=== PATIENT | female | born 1945 | race Caucasian/White ===

== ENCOUNTER 2019-09-29 10:06 | Outpatient (CLI) | payer MEDICARE, SELFPAY ==
[2019-09-29 10:52] LABS: Alanine Aminotransferase 20 U/L (4-35); Albumin Level 4.5 g/dL (3.5-5.1); Alkaline Phosphatase 59 U/L (38-126); Anion Gap 13.1 mmol/L (7-16); Aspartate Amino Transferase 27 U/L (14-36); Bilirubin,Total 0.6 mg/dL (0.2-1.3); Blood Urea Nitrogen 15 mg/dL (7-17); Calcium 9.4 mg/dL (8.4-10.2); Carbon Dioxide 25 mmol/L (22-30); Chloride 102 mmol/L (98-107); Cholesterol 250 mg/dL (0-200); Estimated Glomerular Filt Rate > 60; Glucose 98 mg/dL (65-105); HDL Direct 89 mg/dL; Potassium 4.1 mmol/L (3.4-5.0); Sodium 136 mmol/L (137-145); Triglycerides 72 mg/dL (<150)
[2019-09-29 11:03] LABS: LDL Cholesterol Direct 120 mg/dL
== END 2019-09-29 10:07 | disposition home or self-care (01) ==
PROVIDERS: PCP Nurse Practitioner Family; Visit Provider Nurse Practitioner Family
DX: E78.5 Hyperlipidemia, unspecified (principal); I10 Essential (primary) hypertension
CPT/HCPCS: 36415; 80053; 80061

== ENCOUNTER 2021-06-09 01:16 | Day surgery (SDC) | payer MEDICARE, SELFPAY ==
[2021-06-09] VITALS (9 sets, daily range): BP systolic 128–167; BP diastolic 64–86; PULSE 51–86; RESP 14–17; TEMP 36.3; O2SAT 99–100; BMI 20.7
[2021-06-09 08:51] LABS: Basophils Absolute Auto 0.1 K/mm3 (0.0-0.1); Basophils Percent Auto 1.4 % (0.2-1.2); Eosinophils Absolute Auto 0.2 K/mm3 (0-0.3); Eosinophils Percent Auto 3.6 % (0-4.4); Hematocrit 41.1 % (37.0-47.0); Hemoglobin 13.5 g/dL (12.0-15.0); Lymphocytes Absolute Auto 1.42 K/mm3 (0.9-3.2); Lymphocytes Percent Auto 32.3 % (18.3-44.2); Mean Corpuscular HGB Conc 32.8 g/dl (32-36); Mean Corpuscular Hemoglobin 32.4 pg (26-34); Mean Corpuscular Volume 98.6 fl (80-100); Mean Platelet Volume 9.5 fl (7.4-10.4); Monocytes Absolute Auto 0.4 K/mm3 (0.1-0.6); Monocytes Percent Auto 8.4 % (2.6-8.5); Neutrophils Absolute Auto 2.4 K/mm3 (1.3-6.7); Neutrophils Percent Auto 54.3 % (45.5-73.1); Platelet Count Result 347 k/mm3 (150-375); Red Blood Count 4.17 M/mm3 (4.2-5.4); Red Cell Distribution Width 13.2 % (11.5-14.5); White Blood Count 4.4 K/mm3 (4.5-10.0)
[2021-06-09 09:01] LABS: Anion Gap 6 mmol/L (8-16); Blood Urea Nitrogen 14 mg/dL (7-17); Calcium 9.1 mg/dL (8.4-10.2); Carbon Dioxide 27 mmol/L (22-30); Chloride 105 mmol/L (98-107); Estimated CRCL calculation 70 ml/min; Estimated Glomerular Filt Rate > 60; Glucose 85 mg/dL (65-110); Potassium 3.4 mmol/L (3.4-5.0); Sodium 138 mmol/L (137-145)
--- NOTE | 2021-06-09 11:42 | PM.IMHP ---
H&P: HPI History of Present Illness Date/Time: 06/09/21 11:42 Chief Complaint: Abnormal echocardiogram Narrative: This 75-year-old patient with past medical history of parathyroidectomy, hypertension, hyperlipidemia and anxiety who was seen in my office for abnormal EKG. She had COVID infection March 2021. She has intermittent palpitations for about 1 year on daily basis. She admits to pain in the right side of the neck worse on moving her neck. She walks about 2 miles a day but she feels after that XT me drained and tired. Denies shortness of breath,. Her EKG shows nonspecific ST changes and nonspecific interventricular conduction delay and for that reason and given the fact that she was tired she underwent echocardiogram and ejection fraction reported visually to be 40% and measured at 49%. Due to symptoms and due to low ejection fraction we decided to bring her here for cardiac catheterization to rule out significant CAD Review of Systems Review of Systems: All systems reviewed & are unremarkable except as noted in HPI and below Constitutional: Constitutional: Denies chills, Reports fatigue, Denies fever(s), Denies headache(s), Reports lethargy, Denies snoring and Reports other (Palpitations) Eyes: Eyes: Denies eye discharge and Denies loss of vision ENT: Denies dizziness, Denies headache(s), Denies nasal discharge and Denies sore throat Cardiovascular: Cardiovascular: Reports as per HPI, Denies chest pain, Denies syncope, Denies rapid heart rate, Denies leg edema, Denies dyspnea, Denies dyspnea on exertion, Denies orthopnea and Denies paroxysmal nocturnal dyspnea Respiratory: Respiratory: Denies chest congestion, Denies cough, Denies dyspnea, Denies dyspnea on exertion, Denies snoring and Denies wheezing Gastrointestinal: Gastrointestinal: Denies abdominal pain, Denies diarrhea, Denies nausea and Denies vomiting Genitourinary: Genitourinary: Denies hematuria, Denies urinary frequency, Denies dysuria and Denies flank pain Musculoskeletal: Musculoskeletal: Denies myalgias, Denies arthralgias and Denies joint swelling Neurologic: Denies Abnormal speech present, Denies dizziness, Denies syncope, Denies headache(s), Denies focal weakness and Denies loss of vision Psychiatric: Psychiatric: Denies anxiety and Denies depression Endocrine: Endocrine: Denies cold intolerance, Denies fatigue and Denies heat intolerance Hematologic/Lymphatic: Hematologic/Lymphatic: Denies easy bleeding and Denies easy bruising Allergic/Immunologic: Allergic/Immunologic: Denies urticaria and Denies wheezing PMFSH Past Medical History Medical History Anxiety Colonoscopy refused Essential (primary) hypertension History of shingles Hyperlipidemia Insomnia Osteopenia Surgical History Surgical History History of parathyroidectomy (~01/2013) hx of hyperparathyroid Family History Family History Mother Hypertension Father Family history of heart disease in male family member before age 55 Social History Social History Social History: Lives with . Has 2 children and 4 grandchildren. 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
--- NOTE | 2021-06-09 11:44 | WPDMODSED ---
Moderate Sedation Note-Pt Data Patient Data Allergies Allergy/AdvReac Type Severity Reaction Status Date / Time lisinopril Allergy Mild angioedema Verified 06/09/21 08:41 alendronate sodium Allergy Unknown severe Verified 06/09/21 08:41 body aches lovastatin Allergy Unknown Confusion Verified 06/09/21 08:41 Home Medications Medication Instructions Recorded Confirmed Type aspirin [Adult Low Dose Aspirin] 81 mg PO DAILY 06/08/21 06/08/21 History Current Medications: Active Medications Sodium Chloride (Normal Saline Iv) 500 mls @ 100 mls/hr IV CONT .Q5H TEO Sedation/Anesthesia: No previous sedation/anesthesia problems (including family history). [facility] Past Medical History Medical History Anxiety Colonoscopy refused Essential (primary) hypertension History of shingles Hyperlipidemia Insomnia Osteopenia Surgical History Surgical History History of parathyroidectomy (~01/2013) hx of hyperparathyroid Family History Family History Mother Hypertension Father Family history of heart disease in male family member before age 55 Social History Social History Social History: Lives with . Has 2 children and 4 grandchildren. 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 Gender identity (if verbalized by the patient): Female Sexual Orientation (if Verbalized by the Patient): Straight or Heterosexual Agree to blood products: Yes Mod Sed Physical Exam Physical Exam Pre Procedural Exam: Normal: Appearance, Eyes, Ears, Nose, Neck, Throat, Airway, Lungs, Heart Size, Heart Rate, Heart Rhythm, Neuro Exam, Abdomen, Liver, Kidneys, Spleen, Breasts, Genitalia, Extremities and Skin Hours since solid foods: 8 Hours since liquid intake: 8 Mallampati Classification: class 1 Internal Medicine - PN: Obj Da Vital Signs Vital Signs: Vital Signs - 24 hr 06/09/21 08:47 06/09/21 11:29 Temperature 36.3 C L Pulse Rate 82 Pulse Rate [Bilateral Pedal (Dorsalis Pedis) Palpation] 51 L Respiratory Rate 16 Blood Pressure 167/86 H Pulse Oximetry 99 Meds/Results Medications: Active Medications Generic Name Dose Route Start Last Admin Trade Name Mary PRN Reason Stop Dose Admin Sodium Chloride 500 mls @ 100 mls/hr 06/09/21 08:30 Normal Saline Iv IV CONT .Q5H TEO Labs CBC & Chem 7: 06/09/21 08:47 06/09/21 08:46 Labs: Laboratory Results - last 24 hr 06/09/21 06/09/21 08:46 08:47 WBC 4.4 L RBC 4.17 L Hgb 13.5 Hct 41.1 MCV 98.6 MCH 32.4 MCHC 32.8 RDW 13.2 Plt Count 347 MPV 9.5 Immature Gran % (Auto) 0.0 Neut % (Auto) 54.3 Lymph % (Auto) 32.3 [place] % (Auto) 8.4 Eos % (Auto) 3.6 Baso % (Auto) 1.4 H Lymph # (Auto) 1.42 [place] # (Auto) 0.4 Eos # (Auto) 0.2 Baso # (Auto) 0.1 Abs Immat Gran (auto) 0.00 Absolute Neuts (auto) 2.4 Absolute Nucleated RBC 0.0 Nucleated RBC % 0.0 Sodium 138 Potassium 3.4 Chloride 105 Carbon Dioxide 27 Anion Gap 6 L BUN 14 Creatinine 0.60 L Estim Creat Clear Calc 70 Estimated GFR > 60 Glucose 85 Calcium 9.1 ASA Classification/Sedation ASA Classification/Sedation ASA Class: I Emergent: No Risks: Risks, benefits and alternatives explained and patient/family accepted plan for sedation. Patient re-evaluated immediately prior to sedation.
--- NOTE | 2021-06-09 11:52 | WPDMODSED ---
Moderate Sedation Note-Pt Data Patient Data Allergies Allergy/AdvReac Type Severity Reaction Status Date / Time lisinopril Allergy Mild angioedema Verified 06/09/21 08:41 alendronate sodium Allergy Unknown severe Verified 06/09/21 08:41 body aches lovastatin Allergy Unknown Confusion Verified 06/09/21 08:41 Home Medications Medication Instructions Recorded Confirmed Type aspirin [Adult Low Dose Aspirin] 81 mg PO DAILY 06/08/21 06/08/21 History Current Medications: Active Medications Sodium Chloride (Normal Saline Iv) 500 mls @ 100 mls/hr IV CONT .Q5H TEO Sedation/Anesthesia: No previous sedation/anesthesia problems (including family history). [facility] Past Medical History Medical History Anxiety Colonoscopy refused Essential (primary) hypertension History of shingles Hyperlipidemia Insomnia Osteopenia Surgical History Surgical History History of parathyroidectomy (~01/2013) hx of hyperparathyroid Family History Family History Mother Hypertension Father Family history of heart disease in male family member before age 55 Social History Social History Social History: Lives with . Has 2 children and 4 grandchildren. 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 Gender identity (if verbalized by the patient): Female Sexual Orientation (if Verbalized by the Patient): Straight or Heterosexual Agree to blood products: Yes Mod Sed Physical Exam Physical Exam Pre Procedural Exam: Normal: Appearance, Eyes, Ears, Nose, Neck, Throat, Airway, Lungs, Heart Size, Heart Rate, Heart Rhythm, Neuro Exam, Abdomen, Liver, Kidneys, Spleen, Breasts, Genitalia, Extremities and Skin Hours since solid foods: 8 Hours since liquid intake: 8 Mallampati Classification: class 1 Internal Medicine - PN: Obj Da Vital Signs Vital Signs: Vital Signs - 24 hr 06/09/21 08:47 06/09/21 11:29 06/09/21 11:40 Temperature 36.3 C L Pulse Rate 82 51 L Pulse Rate [Bilateral Pedal (Dorsalis Pedis) Palpation] 51 L 57 L Respiratory Rate 16 16 Blood Pressure 167/86 H 157/73 H Pulse Oximetry 99 100 Meds/Results Medications: Active Medications Generic Name Dose Route Start Last Admin Trade Name Mauriq PRN Reason Stop Dose Admin Sodium Chloride 500 mls @ 100 mls/hr 06/09/21 08:30 Normal Saline Iv IV CONT .Q5H TEO Labs CBC & Chem 7: 06/09/21 08:47 06/09/21 08:46 Labs: Laboratory Results - last 24 hr 06/09/21 06/09/21 08:46 08:47 WBC 4.4 L RBC 4.17 L Hgb 13.5 Hct 41.1 MCV 98.6 MCH 32.4 MCHC 32.8 RDW 13.2 Plt Count 347 MPV 9.5 Immature Gran % (Auto) 0.0 Neut % (Auto) 54.3 Lymph % (Auto) 32.3 [place] % (Auto) 8.4 Eos % (Auto) 3.6 Baso % (Auto) 1.4 H Lymph # (Auto) 1.42 [place] # (Auto) 0.4 Eos # (Auto) 0.2 Baso # (Auto) 0.1 Abs Immat Gran (auto) 0.00 Absolute Neuts (auto) 2.4 Absolute Nucleated RBC 0.0 Nucleated RBC % 0.0 Sodium 138 Potassium 3.4 Chloride 105 Carbon Dioxide 27 Anion Gap 6 L BUN 14 Creatinine 0.60 L Estim Creat Clear Calc 70 Estimated GFR > 60 Glucose 85 Calcium 9.1 ASA Classification/Sedation ASA Classification/Sedation ASA Class: I Emergent: No Risks: Risks, benefits and alternatives explained and patient/family accepted plan for sedation. Patient re-evaluated immediately prior to sedation.
--- NOTE | 2021-06-09 11:53 | WPDCARDPROC ---
Cardiac Cath Procedure Note Date of procedure:: 06/09/21 Performing physician:: Markel Whittaker MD Date of service 06/09/2021- Indication:: Abnormal echocardiogram Brief clinical history:: This 75-year-old patient with past medical history of parathyroidectomy, hypertension, hyperlipidemia and anxiety who was seen in my office for abnormal EKG. She had COVID infection March 2021. She has intermittent palpitations for about 1 year on daily basis. She admits to pain in the right side of the neck worse on moving her neck. She walks about 2 miles a day but she feels after that XT me drained and tired. Denies shortness of breath,. Her EKG shows nonspecific ST changes and nonspecific interventricular conduction delay and for that reason and given the fact that she was tired she underwent echocardiogram and ejection fraction reported visually to be 40% and measured at 49%. Due to symptoms and due to low ejection fraction we decided to bring her here for cardiac catheterization to rule out significant CAD Procedure Procedure performed:: 1-Moderate sedation that started at 10:48 a.m. and ended at 11:04 a.m. a total duration 16minutes using 2mg of Versed and 75mcg fentanyl. The registered nurse was giselle carroll. 2-Selective left and right coronary angiogram. 3-Left heart catheterization with measurement of LVEDP and measurement of gradient across aortic valve. 4-Right common femoral arterial angiogram. 5-Deployment of 6 [place] Angio-Seal. Sedation/Medication given:: Moderate sedation. Access site:: Right common femoral artery. Estimated blood loss:: 10cc Procedure note:: After informed consent patient was brought in to mushroom laborer with the was draped and prepped in usual manner. Moderate sedation was given and the right groin was infiltrated using 1% lidocaine. Five [place] sheath was obtained using micropuncture needle and the modified Seldinger technique. Selective left coronary angiogram was done using JL4 catheter with the tip of the catheter placed in the left main coronary artery. Selective right coronary angiogram was done using JR4 catheter with the tip of the catheter placed to the right coronary artery. After that 5 [place] pigtail catheter was advanced across the aortic valve into the left ventricle with measurement of LVEDP and measurement of gradient across aortic valve. Right common femoral arterial angiogram was done. Findings:: 1- left coronary artery is a large artery that divides into large LAD, large circumflex artery. Left main is free of disease. 2- left anterior descending artery is a large artery that runs and wraps around the apex. Diffuse 30% proximal disease. The rest of the vessel looks normal. Large diagonal that looks unremarkable 3- leftcircumflex artery is a large artery. It is free of disease. Large OM1 free of disease. Small to medium OM2 free of disease. Small OM 3 and OM 4 free of disease. 4- right coronary artery is large artery and dominant and free of disease. 5- LVEDP was 5 mm Hg and no gradient across aortic valve. 6- opening arterial pressure was 160/90 and closing pressure was 150/80 7- right femoral artery angiogram shows no significant disease in the right common femoral artery. Conclusion:: -30% diffuse disease in proximal LAD otherwise no significant disease. -mild nonischemic cardiomyopathy. Assessment and Plan Additional Plan -aggressive risk factor modification for CAD
--- NOTE | 2021-06-09 13:25 | SUR.PHASEII ---
Pt finished eating lunch, tolerated well, denies pain, shortness of breath, nausea or other symptoms. Pt up to a chair without difficulty. Pt steady on her feet, resting comfortably, no bleeding or swelling to groin. Call light within reach, continue to monitor.
== END 2021-06-09 14:47 | disposition home or self-care (01) ==
PROVIDERS: PCP Nurse Practitioner Family; Visit Provider Internal Medicine Cardiovascular Disease
PROC: 4A023N7 Measurement of Cardiac Sampling and Pressure, Left Heart, Percutaneous Approach (ICD-10-PCS; CPT 93452; principal; 2021-06-09 10:00)
DX: I25.10 Atherosclerotic heart disease of native coronary artery without angina pectoris (principal); I42.8 Other cardiomyopathies; Z79.82 Long term (current) use of aspirin; I10 Essential (primary) hypertension; M19.90 Unspecified osteoarthritis, unspecified site; G47.00 Insomnia, unspecified; Z90.89 Acquired absence of other organs; F41.8 Other specified anxiety disorders; Z87.891 Personal history of nicotine dependence; R00.2 Palpitations; R94.31 Abnormal electrocardiogram [ECG] [EKG]; R26.89 Other abnormalities of gait and mobility; E21.3 Hyperparathyroidism, unspecified
CPT/HCPCS: 36415; 80048; 85025; 93458; C1760; C1887; C1894; G0269; J1644; J2250; J3010; J7040

== ENCOUNTER 2021-09-19 13:58 | Outpatient (CLI) | payer MEDICARE, SELFPAY ==
[2021-09-19 19:16] LABS: Alanine Aminotransferase 24 U/L (6-35); Albumin Level 4.6 g/dL (3.5-5.1); Alkaline Phosphatase 45 U/L (38-126); Anion Gap 4 mmol/L (8-16); Aspartate Amino Transferase 36 U/L (14-36); Bilirubin,Total 0.5 mg/dL (0.2-1.3); Blood Urea Nitrogen 17 mg/dL (7-17); Calcium 9.5 mg/dL (8.4-10.2); Carbon Dioxide 26 mmol/L (22-30); Chloride 105 mmol/L (98-107); Estimated Glomerular Filt Rate > 60; Glucose 92 mg/dL (65-110); Potassium 4.2 mmol/L (3.4-5.0); Sodium 135 mmol/L (137-145)
[2021-09-19 19:50] LABS: Iron 73 ug/dL (37-170)
[2021-09-19 20:00] LABS: Percent Iron Saturation 25 % (20-50)
[2021-09-19 20:05] LABS: Vitamin B12 > 1000.0 pg/mL (239-931)
== END 2021-09-19 13:59 | disposition home or self-care (01) ==
LOC: ANHGOSHLAB 14:00
PROVIDERS: PCP Family Medicine; Visit Provider Nurse Practitioner Family
DX: D64.9 Anemia, unspecified (principal); I10 Essential (primary) hypertension; R42 Dizziness and giddiness
CPT/HCPCS: 36415; 80053; 82607; 83540; 83550

== ENCOUNTER 2021-11-14 13:19 | Outpatient (CLI) | payer MEDICARE, SELFPAY ==
--- NOTE | ~2021-11-14 | MR_ITS ---
EXAMINATION: MR cervical spine wo/w con DATE: 11/14/2021 14:09 INDICATION: Gait dysfunction. Chronic neck pain. Numbness in the arms. TECHNIQUE: Magnetic resonance imaging (MRI) of the cervical spine was performed without and with 13 m L MultiHance intravenous contrast. COMPARISON: None FINDINGS: There is 3 degrees dextrocurvature of cervical spine. There is 2 mm anterolisthesis of C4 o n C5. Vertebral body heights are normal. There is mildly decreased disc height at C3-C4 and moderatel y decreased disc height at C5-C6. The spinal cord signal intensity is normal. The following disc leve ls are specifically discussed: C2-C3: There is a central extrusion. There is no uncovertebral joint osteoarthritis. There is severe right and moderate left facet joint osteoarthritis. There is mild right neural foraminal stenosis. Th ere is mild central canal stenosis. C3-C4: The disc is bulging. There is severe right and moderate left uncovertebral joint osteoarthriti s. There is severe bilateral facet joint osteoarthritis. There is moderate right and mild left neural foraminal stenosis. There is moderate central canal stenosis with ventral and dorsal indentation of the spinal cord. C4-C5: The disc does not extend beyond the endplate margin. There is moderate left uncovertebral join t osteoarthritis. There is ankylosis of left facet joint with moderate hypertrophy. There is mild lef t neural foraminal stenosis. There is no central canal stenosis. C5-C6: The disc is bulging. There is severe bilateral uncovertebral joint osteoarthritis. There is se gama bilateral facet joint osteoarthritis. There is mild right and moderate left neural foraminal lexus nosis. There is mild central canal stenosis. C6-C7: The disc does not extend beyond the endplate margin. There is mild bilateral uncovertebral natali nt osteoarthritis. There is severe bilateral facet joint osteoarthritis. There is mild bilateral neur al foraminal stenosis. There is no central canal stenosis. C7-T1: The disc does not extend beyond the endplate margin. There is no uncovertebral joint osteoarth ritis. There is severe bilateral facet joint osteoarthritis. There is mild bilateral neural foraminal stenosis. There is no central canal stenosis. IMPRESSION: 1. Moderate cervical spondylosis. Reviewed, dictated and finalized at location A.
== END 2021-11-14 13:20 | disposition home or self-care (01) ==
PROVIDERS: PCP Family Medicine; Visit Provider Psychiatry & Neurology Neurology
DX: R26.9 Unspecified abnormalities of gait and mobility (principal); M47.812 Spondylosis without myelopathy or radiculopathy, cervical region
CPT/HCPCS: 72156; A9577

== ENCOUNTER 2021-11-15 14:45 | Outpatient (CLI) | payer MEDICARE, SELFPAY ==
--- NOTE | ~2021-11-15 | DEXA_ITS ---
Bone Density Report Name: AYAN GAUTAM Age: 75 Sex: Female Ethnicity: White Date of : 1945 Indication: postmenopausal; screening for osteoporosis; height loss; rheumatoid arthritis; Referring Provider: RUSSELL CANELA Study: Bone densitometry was performed. Exam Date: November 15, 2021 Accession number: [id number] Bone Density: Region BMD T-score Z-score Classification AP Spine(L1-L4) 1.186 1.3 3.7 Normal Femoral Neck (Left) 0.707 -1.3 0.8 Osteopenia Total Hip (Left) 0.812 -1.1 0.7 Osteopenia Femoral Neck (Right) 0.736 -1.0 1.1 Normal Total Hip (Right) 0.854 -0.7 1.1 Normal Total Hip Mean 0.833 -0.9 0.9 Normal World Health Organization criteria for BMD impression classify patients as: Normal (T-score at or above -1.0), Osteopenia (T-score between -1.0 and -2.5), or Osteoporosis (T-score at or below -2.5). 10-year Fracture Risk(1): Major Osteoporotic Fracture 12% Hip Fracture 2.5% Reported Risk Factors: [place] (), Neck BMD=0.707, BMI=21.4, rheumatoid arthritis (1) FRAX(R) Version 3.08. Fracture probability calculated for an untreated patient. Fracture probability may be lower if the patient has received treatment. Clinical Information Provided by Patient: Has rheumatoid arthritis Has used the following medications: Vitamin D, B12 Patient maximum height was 71 Menopause Age: 48 Drinks caffeinated beverages Onset of menses at age 17 Number of children 2 Impression: The patient has low bone mass, based on the Left Femoral Neck T-score. The patient has an estimated ten-year risk of hip fracture of 2.5% and an estimated ten-year risk of major fracture of 12%, based on the WHO FRAX algorithm. Discussion: BONE DENSITY IS LOW AT ONE OR MORE SKELETAL SITES. This patient's lowest T-score is low at one or more skeletal sites. It meets the World Health Organization's (WHO) criteria for ?low bone mass? (T-score between -1.0 and -2.5). The patient's 10-year risk of fracture as calculated by FRAX is less than the threshold where pharmacological therapy is recommended by the National Osteoporosis Foundation (NOF). However, all treatment decisions require clinical judgment and consideration of individual patient factors, including patient preferences, comorbidities, previous drug use, risk factors not captured in the FRAX model (e.g., frailty, falls, vitamin D deficiency, increased bone turnover, interval significant decline in bone density) and possible under or overestimation of fracture risk by FRAX. The patient should follow a healthful lifestyle (good nutrition with adequate calcium and vitamin D, and appropriate weight-bearing exercise). Follow-Up: Consider repeating this study in 2 to 3 years to reassess this patient's status, or sooner if there is some new cli
--- NOTE | ~2021-11-15 | MM_ITS ---
EXAMINATION: MM screening giorgio BI w caitlin HISTORY: Screening mammogram TECHNIQUE: Craniocaudal and mediolateral oblique 3-D tomosynthesis images were obtained and synthetic 2-D images were generated. CAD analysis was submitted and interpreted. COMPARISON: 01/16/2019, 10/17/2017, 08/28/2016 bilateral screening mammogram examinations BREAST PARENCHYMAL COMPOSITION: There are scattered areas of fibroglandular density. FINDINGS: Occasional benign calcifications, small intramammary lymph nodes. There is no evidence of s uspicious mass, calcification, or architectural distortion to suggest malignancy in either breast. Th ere has been no suspicious interval change. IMPRESSION: 1. No mammographic evidence of malignancy. 2. Recommend routine screening mammography in one year. BI-RADS Category 2: Benign finding(s). Reviewed, dictated and finalized at location A.
== END 2021-11-15 14:46 | disposition home or self-care (01) ==
PROVIDERS: PCP Family Medicine; Visit Provider Nurse Practitioner Family
DX: Z12.31 Encounter for screening mammogram for malignant neoplasm of breast (principal); Z78.0 Asymptomatic menopausal state; M85.89 Other specified disorders of bone density and structure, multiple sites
CPT/HCPCS: 77063; 77067; 77080

== ENCOUNTER 2021-11-30 13:19 | Outpatient (CLI) | payer MEDICARE, SELFPAY ==
--- NOTE | ~2021-11-30 | MR_ITS ---
EXAMINATION: MR brain/brain stem wo con DATE: 11/30/2021 14:13 INDICATION: Numbness. Anesthesia of skin. TECHNIQUE: Magnetic resonance imaging (MRI) of the brain and brainstem was performed without intraven ous contrast. COMPARISON: None. FINDINGS: There is no intracranial hemorrhage, acute infarction, or abnormal intracranial mass lesion . There are scattered areas of nonspecific increased T2-weighted signal intensity in the cerebral whi te matter, which is within normal limits for the patient's age. The ventricles are normal in size. T here is mucosal thickening in the paranasal sinuses. Vertebral body heights are normal. The paranasal sinuses are clear. IMPRESSION: 1. Normal brain. Reviewed, dictated and finalized at location A. IMPRESSION: 1. Normal brain.
== END 2021-11-30 13:20 | disposition home or self-care (01) ==
PROVIDERS: PCP Family Medicine; Visit Provider Psychiatry & Neurology Neurology
DX: R20.0 Anesthesia of skin (principal)
CPT/HCPCS: 70551

== ENCOUNTER 2021-12-27 08:53 | Outpatient (CLI) | payer MEDICARE, SELFPAY ==
--- NOTE | 2021-12-27 11:00 | NEURO_ITS ---
Impression: # History of balance issues. # Mild evolving Carpal Tunnel Syndrome bilaterally. # Normal lower extremity nerve conduction study. # Normal needle/EMG exam. # Clinical correlation recommended. Motor Nerve Conduction Upper Extremities Median Nerve Conduction Velocity (m/sec) Terminal Latency (msec) Response Voltage(mV) Elbow-Wrist Wrist Elbow Wrist Right 53 4.0 4 6 Left 53 3.8 4 5 Ulnar Nerve Conduction Velocity (m/sec) Terminal Latency (msec) Response Voltage(mV) Above Elbow Below Elbow Wrist Above Elbow Below Elbow Wrist Right 58 56 2.8 5 6 6 Left 58 58 3.0 5 5 5 F-Wave Latency Median (ms) Ulnar (ms) Right 30.4 30.2 Left 30.2 29.9 Sensory Nerve Conduction Upper Extremities Median Nerve Stimulation Terminal Latency (msec) Wrist/Digit Response Voltage (uV) Wrist Right 3.8/3.8 16/35 Left 3.7/4.0 27/16 Ulnar Nerve Stimulation Terminal Latency (msec) Wrist/Digit Response Voltage (uV) Wrist Right 2.9 31 Left 3.0 43 Radial Nerve Terminal Latency (msec) Response Voltage(mV) Right 2.6 34 Left 2.3 27 Left Right Muscles Examined Fibrillation Fasciculation Scarcity Voltage Duration Left Right Left Right Left Right Left Right Left Right Deltoid Biceps X X Brachioradialis Triceps X X Pronator Teres X X Ext Indicis X X Ext Digitorum X X Abd Poll Brev X X 1st Dorsal Interosseus Paraspinals Motor Nerve Conduction Lower Extremities Peroneal Nerve Conduction Velocity (m/sec) Terminal Latency (msec) Response Voltage(mV) Popliteal space-Ankle Ankle Extensor Dig Brevis Popliteal space Ankle Right 42-43 4.5 2-3 3 Left 43-42 4.8 1-1 2 Tibial Nerve Conduction Velocity (m/sec) Terminal Latency (msec) Response Voltage(mV) Popliteal space-Ankle Ankle-Extensor Dig Brevis Popliteal space Ankle Right 42 4.8 3 4 Left 42 4.6 3 4 F-waves Peroneal Nerve (ms) Tibial Nerve (ms) Right 57.9 58.3 Left 58.1 59.0 Sensory Nerve Conduction Lower Extremities Sural Nerve Stimulation Terminal Latency (msec) Ankle Response Voltage (uV) Ankle Response Velocity (m/sec) Right 3.7 10 43 Left 3.6 20 44 Superficial Peroneal Nerve Stimulation Terminal Latency (msec) Ankle Response Voltage (uV) Ankle Response Velocity (m/sec) Right 3.9 15 41 Left 3.9 8 41 Left Right Muscles Examined Fibrillation Fasciculation Scarcity Voltage Duration Left Right Left Right Left Right Left Right Left Right X X Ant Tibialis X X Gastroc X X Fibularis Long X X Flex Dig Long X X Ext Dig Brev Abd Hallucis Quadriceps Paraspinals
== END 2021-12-27 08:54 | disposition home or self-care (01) ==
PROVIDERS: PCP Nurse Practitioner Family; Visit Provider Psychiatry & Neurology Neurology
DX: R20.2 Paresthesia of skin (principal); G56.03 Carpal tunnel syndrome, bilateral upper limbs
CPT/HCPCS: 95886; 95913

== ENCOUNTER 2022-01-15 22:04 | Emergency (ER) | payer MEDICARE, SELFPAY ==
--- NOTE | ~2022-01-15 | XR_ITS ---
EXAMINATION: XR chest 2V DATE: 01/16/2022 00:56 INDICATION: Cough. Hypertension. TECHNIQUE: Frontal and lateral views of the chest were obtained. COMPARISON: None. FINDINGS: There is mild atelectasis in lingula. No pleural effusion or pneumothorax. The heart size i s normal. IMPRESSION: 1. Mild atelectasis in lingula. Reviewed, dictated and finalized at location A. T ADMINISTRATOR
[2022-01-15 22:17] VITALS: BP 191/92; PULSE 85; RESP 20; TEMP 36.5; O2SAT 99
[2022-01-15 23:29] VITALS: PULSE 70; RESP 15; O2SAT 99
[2022-01-15 23:30] VITALS: BP 161/71; PULSE 71; RESP 18; O2SAT 98
[2022-01-15 23:45] VITALS: PULSE 69; RESP 10; O2SAT 98
[2022-01-15 23:46] VITALS: BP 177/74; PULSE 70; RESP 16; O2SAT 98
--- NOTE | 2022-01-15 23:57 | ED.RECABL ---
HPI - Recheck/Abnormal Lab/Rx General Chief Complaint: Recheck/Abnormal Lab/Rx Stated Complaint: High bp, facial pressure Time Seen by Provider: 01/15/22 23:00 Source: patient and RN notes reviewed Mode of arrival: ambulatory Limitations: no limitations History of Present Illness HPI narrative: This is a 76 year old female who presents for evaluation of elevated blood pressure. Patient states today she checked her blood pressure before bed and it was 185/90 so she came to ER. She states her blood pressure was in 160s this morning. She has history of hypertension but she does not take antihypertensives due to side effects. She states she has had a cold for 4 days and she is taking coricidin. She has congestion, cough with green phlegm. She denies fever, chills, chest pain, shortness of breath, focal weakness. She has issues with chronic paresthesias to bilateral arms due to neck issues. SHe is also dealing with head tremors, and she is being evaluated by neurology and neurosurgery. She denies any new symptoms today. She denies blurred vision. Related Data Home Medications Medication Instructions Recorded Confirmed aspirin 81 mg tablet 81 mg PO DAILY 06/08/21 01/05/22 ascorbic acid (vitamin C) 1,000 mg 1 g PO DAILY 11/01/21 01/05/22 capsule biotin 10,000 mcg capsule 10,000 mcg PO DAILY 11/01/21 01/05/22 calcium carbonate 600 mg calcium 600 mg PO DAILY 11/01/21 01/05/22 (1,500 mg) tablet (Calcium) cholecalciferol (vitamin D3) 125 125 mcg PO DAILY 11/01/21 01/05/22 mcg (5,000 unit) capsule coenzyme Q10 100 mg capsule 400 mg PO DAILY 11/01/21 01/05/22 (CoQ-10) magnesium oxide 250 mg PO DAILY 11/01/21 01/05/22 pyridoxine (vitamin B6) 100 mg 100 mg PO DAILY 11/01/21 01/05/22 tablet tumeric 100 mg-chelle 150 mg-olive 1 cap PO TID 11/01/21 01/05/22 50 mg-oreg 150 mg-caprylate capsule vitamin E (dl, acetate) 180 mg 180 mg PO BID 11/01/21 01/05/22 (400 unit) capsule Allergies Allergy/AdvReac Type Severity Reaction Status Date / Time lisinopril Allergy Mild angioedema Verified 01/15/22 22:22 alendronate sodium Allergy Unknown severe Verified 01/15/22 22:22 body aches lovastatin Allergy Unknown Confusion Verified 01/15/22 22:22 amlodipine AdvReac Intermediate Other Verified 01/15/22 22:22 losartan AdvReac Intermediate Other Verified 01/15/22 22:22 metoprolol AdvReac Intermediate Other Verified 01/15/22 22:22 Review of Systems Review of Systems: All systems reviewed & are unremarkable except as noted in HPI and below Constitutional: Constitutional: Denies chills, Denies fatigue and Denies fever(s) Eyes: Eyes: Denies change in vision and Denies photophobia ENT: Reports nasal congestion Cardiovascular: Cardiovascular: Denies chest pain and Denies radiating jaw, neck or arm pain Respiratory: Respiratory: Denies chest congestion, Reports cough and Denies dyspnea Gastrointestinal: Gastrointestinal: Denies abdominal pain, Denies nausea and Denies vomiting Musculoskeletal: Musculoskeletal: Reports back pain Neurologic: Reports numbness (chronic due to neck issues) [facility] Past Medical History Medical History Anxiety Colonoscopy refused Essential (primary) hypertension History of shingles Hyperlipidemia Insomnia Osteopenia Surgical History Surgical History History of parathyroidectomy (~01/2013) hx of hyperparathyroid Family History Family History Mother Hypertension Father Family history of heart disease in male family member before age 55 Social History Social History Social History: Lives with . Has 2 children and 4 grandchildren. Smoking status: Never smoker Second hand tobacco smoke exposure: No Alcohol intake: current Substance use: never Substa
[2022-01-16 00:19] VITALS: PULSE 66; RESP 12
[2022-01-16 00:30] VITALS: PULSE 64; RESP 15
[2022-01-16 00:31] VITALS: BP 150/71; PULSE 63; RESP 12
[2022-01-16 00:51] LABS: Influenza A QL RT-PCR Negative (Negative); Influenza B QL RT-PCR Negative (Negative); RSV RNA, RT-PCR Negative (Negative); SARS-CoV-2 RNA PCR Negative
[2022-01-16 00:53] VITALS: PULSE 73; RESP 16
[2022-01-16 00:55] VITALS: BP 169/84; PULSE 63; RESP 12; O2SAT 100
== END 2022-01-16 01:46 | disposition home or self-care (01) ==
PROVIDERS: Emergency Provider General Practice; PCP Nurse Practitioner Family
DX: I10 Essential (primary) hypertension (principal); J06.9 Acute upper respiratory infection, unspecified; Z20.822 Contact with and (suspected) exposure to COVID-19; E78.5 Hyperlipidemia, unspecified; M85.80 Other specified disorders of bone density and structure, unspecified site; Z79.82 Long term (current) use of aspirin
CPT/HCPCS: 71046; 87637; 99283

== ENCOUNTER 2022-01-24 13:21 | Outpatient (CLI) | payer MEDICARE, SELFPAY ==
--- NOTE | ~2022-01-24 | CT_ITS ---
EXAMINATION: CT cervical spine wo con DATE: 01/24/2022 13:39 INDICATION: Neck pain. TECHNIQUE: Computed tomography (CT) of the cervical spine was performed without intravenous contrast. Automated exposure control and iterative reconstruction technique were employed. The dose-length pro duct was 151.03 mGy-cm. COMPARISON: Cervical spine MRI 11/14/2021 FINDINGS: There is mucosal thickening in the paranasal sinuses. There is 5 degrees dextrocurvature of cervicothoracic spine. There is 2 mm anterolisthesis of C4 on C5. Vertebral body heights are normal. There is mildly decreased disc height at C3-C4 and moderately decreased disc height at C5-C6. The fo llowing disc levels are specifically discussed: C2-C3: There is mild bilateral uncovertebral joint osteoarthritis. There is severe right and mild lef t facet joint osteoarthritis. There is mild right neural foraminal stenosis. There is no central sherly l stenosis. C3-C4: There is severe right and mild left uncovertebral joint osteoarthritis. There is severe bilate ral facet joint osteoarthritis. There is moderate right and mild left neural foraminal stenosis. Ther e is mild central canal stenosis. C4-C5: There is mild right and severe left uncovertebral joint osteoarthritis. There is moderate righ t facet joint osteoarthritis. There is ankylosis of left facet joint with severe hypertrophy. There i s mild right and moderate left neural foraminal stenosis. There is mild central canal stenosis. C5-C6: There is moderate right and severe left uncovertebral joint osteoarthritis. There is severe bi lateral facet joint osteoarthritis. There is mild right and moderate left neural foraminal stenosis. There is mild central canal stenosis. C6-C7: There is mild bilateral uncovertebral joint osteoarthritis. There is severe bilateral facet kylie int osteoarthritis. There is mild bilateral neural foraminal stenosis. There is mild central canal st enosis. C7-T1: There is no uncovertebral joint osteoarthritis. There is severe bilateral facet joint osteoart hritis. There is mild bilateral neural foraminal stenosis. There is no central canal stenosis. IMPRESSION: 1. Moderate cervical spondylosis. Reviewed, dictated and finalized at location A. GER RELOCATION
== END 2022-01-24 13:22 | disposition home or self-care (01) ==
PROVIDERS: PCP Nurse Practitioner Family; Visit Provider Neurological Surgery
DX: M54.2 Cervicalgia (principal); M47.812 Spondylosis without myelopathy or radiculopathy, cervical region
CPT/HCPCS: 72125

== ENCOUNTER 2022-01-30 11:33 | Outpatient (CLI) | payer MEDICARE, SELFPAY ==
--- NOTE | ~2022-01-30 | XR_ITS ---
EXAMINATION: XR cervical spine 4-5V DATE: 01/30/2022 11:56 INDICATION: Neck pain. TECHNIQUE: 5 views of cervical spine including flexion and extension views were obtained. COMPARISON: CT cervical spine 01/24/2022 FINDINGS: Bone alignment is normal. The spine is hypomobile with flexion and extension. Vertebral bod y heights are normal. There is mildly decreased disc height at C3-C4 and moderately decreased disc he ight at C5-C6. There is multilevel moderate to severe facet joint osteoarthritis in cervical spine. T here is mild central canal stenosis at C5-C6. No prevertebral soft tissue swelling. IMPRESSION: 1. Moderate cervical spondylosis. Reviewed, dictated and finalized at location A. RVISOR ACCOUNTS RECEIVABLE
== END 2022-01-30 11:34 | disposition home or self-care (01) ==
PROVIDERS: PCP Nurse Practitioner Family; Visit Provider Neurological Surgery
DX: M47.812 Spondylosis without myelopathy or radiculopathy, cervical region (principal)
CPT/HCPCS: 72050

== ENCOUNTER 2022-05-15 09:56 | Outpatient (CLI) | payer MEDICARE, SELFPAY ==
[2022-05-15 20:14] LABS: Cholesterol 238 mg/dL (0-200); HDL Direct 95 mg/dL; Triglycerides 67 mg/dL (<150)
[2022-05-15 20:21] LABS: Vitamin D 25 Hydroxy 59.7 ng/mL
[2022-05-15 20:25] LABS: LDL Cholesterol Direct 98 mg/dL
== END 2022-05-15 09:57 | disposition home or self-care (01) ==
LOC: ANHGOSHLAB 09:57
PROVIDERS: PCP Nurse Practitioner Family; Visit Provider Nurse Practitioner Family
DX: E55.9 Vitamin D deficiency, unspecified (principal); E78.5 Hyperlipidemia, unspecified
CPT/HCPCS: 36415; 80061; 82306; 84443

== ENCOUNTER 2022-09-14 11:21 | Outpatient (CLI) | payer MEDICARE, SELFPAY ==
--- NOTE | ~2022-09-14 | XR_ITS ---
EXAMINATION:XR_CERV2-3V_CR DATE: 09/14/2022 11:39 INDICATION: Neck pain TECHNIQUE: AP, lateral, lateral swimmers and odontoid views of the cervical spine are provided. COMPARISON: 01/22/2022 FINDINGS: There are changes of interval anterior fusion and interbody device placement at C3-4. Bone alignment is normal. The odontoid process is intact. No fracture is identified. There is moderate los s of intervertebral disc space height at C5-6. Small degenerative osteophytes project from the anteri or endplates of multiple vertebral bodies. There is multilevel moderate to severe facet and uncoverte bral joint osteoarthritis. Prevertebral soft tissues are normal. IMPRESSION: 1. Moderate cervical spondylosis with interval anterior fusion at C3-4. No acute findings. Reviewed, dictated and finalized at location L. IMPRESSION: 1. Moderate cervical spondylosis with interval anterior fusion at C3-4. No acut e findings.
== END 2022-09-14 11:22 | disposition home or self-care (01) ==
PROVIDERS: PCP Nurse Practitioner Family; Visit Provider Neurological Surgery
DX: Z98.1 Arthrodesis status (principal); M43.02 Spondylolysis, cervical region
CPT/HCPCS: 72040

== ENCOUNTER 2022-10-23 00:40 | Day surgery (SDC) | payer MEDICARE, SELFPAY ==
[2022-10-17 11:57] VITALS: BMI 22.1
[2022-10-23 12:53] VITALS: BP 168/75; PULSE 81; RESP 18; TEMP 36.3; O2SAT 100
[2022-10-23] MEDS: LACTATED RINGERS 1,000 ML 150 ML IV CONT (13:02)
--- NOTE | 2022-10-23 13:23 | WPDANESEPPF ---
Anes - Initial Pre Proc Eval Procedure: Operation Date: 10/23/22 14:00 Proposed Procedures p Esophagogastroduodenoscopy - Hamlet Spaulding MD Date/Time: 10/23/22 13:23 Surgeon: Hamlet Spaulding MD Pre Op Diagnosis: GERD Patient Data Age: 76 Gender: F Height: 1.75 m Weight: 68.7 kg Last Vital Signs Temp 36.3 C L 10/23/22 12:53 Pulse 81 10/23/22 12:53 Resp 18 10/23/22 12:53 BP 168/75 H 10/23/22 12:53 Pulse Ox 100 10/23/22 12:53 O2 Del Method Room Air 10/23/22 12:53 Allergies Allergy/AdvReac Type Severity Reaction Status Date / Time alendronate sodium Allergy Unknown severe Verified 10/23/22 12:52 body aches lovastatin Allergy Unknown Confusion Verified 10/23/22 12:52 amlodipine AdvReac Intermediate Other Verified 10/23/22 12:52 losartan AdvReac Intermediate Other Verified 10/23/22 12:52 metoprolol AdvReac Intermediate Other Verified 10/23/22 12:52 Home Medications Medication Instructions Recorded Confirmed Type aspirin 81 mg tablet 81 mg PO DAILY 06/08/21 10/17/22 History ascorbic acid (vitamin C) 1,000 mg 1 g PO DAILY 11/01/21 10/17/22 History capsule biotin 10,000 mcg capsule 10,000 mcg PO DAILY 11/01/21 10/17/22 History calcium carbonate 600 mg calcium 600 mg PO DAILY 11/01/21 10/17/22 History (1,500 mg) tablet (Calcium) cholecalciferol (vitamin D3) 125 125 mcg PO DAILY 11/01/21 10/17/22 History mcg (5,000 unit) capsule coenzyme Q10 100 mg capsule 400 mg PO DAILY 11/01/21 10/17/22 History (CoQ-10) magnesium oxide 250 mg PO DAILY 11/01/21 10/17/22 History pyridoxine (vitamin B6) 100 mg 100 mg PO DAILY 11/01/21 10/17/22 History tablet vitamin E (dl, acetate) 180 mg 180 mg PO BID 11/01/21 10/17/22 History (400 unit) capsule lisinopril 20 mg tablet 20 mg PO DAILY 10/12/22 10/17/22 History Patient hx anesthesia problems: none Family hx anesthesia problems: none Results Review: All pre-operative results and documents have been reviewed as part of the pre-operative evaluation. FORMERLY [facility], 1928–1983 Past Medical History Medical History Anxiety Cervical spondylosis with myelopathy Colonoscopy refused Essential (primary) hypertension History of shingles Hyperlipidemia Insomnia Osteopenia Surgical History Surgical History History of parathyroidectomy (~01/2013) hx of hyperparathyroid Family History Family History Mother Hypertension Father Family history of heart disease in male family member before age 55 Social History Social History Social History: Lives with . Has 2 children and 4 grandchildren. 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
--- NOTE | 2022-10-23 13:29 | PM.HPGS ---
History of Present Illness History of Present Illness Consent: Risks, benefits, and alternatives have been discussed and questions answered. Patient agrees to proceed with procedure. Chief complaint: dysphagia Narrative: Nancy Denson is a 76 year old female Presents for EGD. Patient states for last several years she has intermittently had difficulty swallowing solid foods. This happens more often with bread and meat. She presents today for EGD to evaluate more thoroughly. She denies heartburn back notes occasional substernal indigestion. Family history is noncontributory. She states her father may have had an endoscopy when he was older pair Review of Systems Review of Systems: review of systems noncontributory. [facility] Past Medical History Medical History Anxiety Cervical spondylosis with myelopathy Colonoscopy refused Essential (primary) hypertension History of shingles Hyperlipidemia Insomnia Osteopenia Surgical History Surgical History History of parathyroidectomy (~01/2013) hx of hyperparathyroid Family History Family History Mother Hypertension Father Family history of heart disease in male family member before age 55 Social History Social History Social History: Lives with . Has 2 children and 4 grandchildren. Caffeine- coffee daily Smoking status: Never smoker Second hand tobacco smoke exposure: No Alcohol intake: current Drinks per week: 3 Alcohol use details: couple drinks weekly Substance use: current Substance use type: does not use Other substance usage details: CBD Lack of Transportation: No Lack of Food: Never True Current Housing: I Have Housing Concerned About Future Housing: No Difficulty Paying Gas/Electric Bills: No Difficulty Paying for Meds: No Currently Unemployed: No Education: High School Diploma/GED Difficulty w/ Childcare or Family Care: No Living arrangements: with family Occupation/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 Gender identity (if verbalized by the patient): Female Sexual Orientation (if Verbalized by the Patient): Straight or Heterosexual Spiritual care concerns: No Agree to blood products: Yes Meds Home Medications and Allergies Home Medications Medication Instructions Recorded Confirmed Type aspirin 81 mg tablet 81 mg PO DAILY 06/08/21 10/17/22 History ascorbic acid (vitamin C) 1,000 mg 1 g PO DAILY 11/01/21 10/17/22 History capsule biotin 10,000 mcg capsule 10,000 mcg PO DAILY 11/01/21 10/17/22 History calcium carbonate 600 mg calcium 600 mg PO DAILY 11/01/21 10/17/22 History (1,500 mg) tablet (Calcium) cholecalciferol (vitamin D3) 125 125 mcg PO DAILY 11/01/21 10/17/22 History mcg (5,000 unit) capsule coenzyme Q10 100 mg capsule 400 mg PO DAILY 11/01/21 10/17/22 History (CoQ-10) magnesium oxide 250 mg PO DAILY 11/01/21 10/17/22 History pyridoxine (vitamin B6) 100 mg 100 mg PO DAILY 11/01/21 10/17/22 History tablet vitamin E (dl, acetate) 180 mg 180 mg PO BID 11/01/21 10/17/22 History (400 unit) capsule lisinopril 20 mg tablet 20 mg PO DAILY 10/12/22 10/17/22 History Allergies Allergy/AdvReac Type Severity Reaction Status Date / Time alendronate sodium Allergy Unknown severe Verified 10/23/22 12:52 body aches lovastatin Allergy Unknown Confusion Verified 10/23/22 12:52 amlodipine AdvReac Intermediate Other Verified 10/23/22 12:52 losartan AdvReac Intermediate Other Verified 10/23/22 12:52 metoprolol AdvReac Intermediate Other Verified 10/23/22 12:52 Vital Signs Vital Signs - 24 hr 10/23/22 12:53 Temperature 97.4 F L Pulse Rate 81 Respiratory Rate 18 Blood Pressure 168/75 H Pulse Oximetry 100 Oxyge
[2022-10-23 14:40] VITALS: BP 131/78; PULSE 63; RESP 21; O2SAT 100
[2022-10-23 14:50] VITALS: BP 152/82; PULSE 61; RESP 19; O2SAT 100
[2022-10-23 15:00] VITALS: BP 161/69; PULSE 71; RESP 19; O2SAT 100
== END 2022-10-23 15:16 | disposition home or self-care (01) ==
PROVIDERS: PCP Family Medicine; Visit Provider Internal Medicine Gastroenterology
PROC: 0DJ08ZZ Inspection of Upper Intestinal Tract, Via Natural or Artificial Opening Endoscopic (ICD-10-PCS; CPT 43235; principal; 2022-10-23 14:00)
DX: Q39.4 Esophageal web (principal); I10 Essential (primary) hypertension; E78.5 Hyperlipidemia, unspecified; Z79.82 Long term (current) use of aspirin
CPT/HCPCS: 43450; 43235; J2704; J7120

== ENCOUNTER 2022-11-13 09:19 | Outpatient (CLI) | payer MEDICARE, SELFPAY ==
[2022-11-13 19:23] LABS: Alanine Aminotransferase 22 U/L (6-35); Albumin Level 4.4 g/dL (3.5-5.1); Alkaline Phosphatase 45 U/L (38-126); Anion Gap 8 mmol/L (8-16); Aspartate Amino Transferase 32 U/L (14-36); Bilirubin,Total 0.7 mg/dL (0.2-1.3); Blood Urea Nitrogen 16 mg/dL (7-17); Calcium 9.2 mg/dL (8.4-10.2); Carbon Dioxide 26 mmol/L (22-30); Chloride 104 mmol/L (98-107); Estimated Glomerular Filt Rate > 60; Glucose 85 mg/dL (65-110); Potassium 4.3 mmol/L (3.4-5.0); Sodium 138 mmol/L (137-145)
[2022-11-13 19:43] LABS: Basophils Absolute Auto 0.1 K/mm3 (0.0-0.1); Eosinophils Absolute Auto 0.2 K/mm3 (0-0.3); Eosinophils Percent Auto 3.8 % (0-4.4); Hematocrit 39.9 % (37.0-47.0); Hemoglobin 13.1 g/dL (12.0-15.0); Immature Granulocyte Absolute 0.01 K/mm3 (0.00-0.031); Immature Granulocyte Percent A 0.2 % (0-0.5); Lymphocytes Absolute Auto 1.14 K/mm3 (0.9-3.2); Mean Corpuscular HGB Conc 32.8 g/dl (32-36); Mean Corpuscular Hemoglobin 32.2 pg (26-34); Mean Platelet Volume 10.6 fl (7.4-10.4); Monocytes Absolute Auto 0.3 K/mm3 (0.1-0.6); Monocytes Percent Auto 6.7 % (2.6-8.5); Neutrophils Absolute Auto 3.2 K/mm3 (1.3-6.7); Neutrophils Percent Auto 65.3 % (45.5-73.1); Platelet Count Result 350 k/mm3 (150-375); Red Blood Count 4.07 M/mm3 (4.2-5.4); Red Cell Distribution Width 12.7 % (11.5-14.5)
== END 2022-11-13 09:20 | disposition home or self-care (01) ==
PROVIDERS: PCP Family Medicine; Visit Provider Family Medicine
DX: I10 Essential (primary) hypertension (principal); E78.5 Hyperlipidemia, unspecified; Z79.899 Other long term (current) drug therapy
CPT/HCPCS: 36415; 80053; 85025

== ENCOUNTER 2022-11-14 12:35 | Outpatient (CLI) | payer MEDICARE, SELFPAY ==
--- NOTE | ~2022-11-14 | MR_ITS ---
EXAMINATION: MR cervical spine wo con DATE: 11/14/2022 13:06 INDICATION: Cervical arthrodesis. Bilateral hand and leg numbness. TECHNIQUE: Magnetic resonance imaging (MRI) of the cervical spine was performed without intravenous c ontrast. COMPARISON: Cervical spine MRI 11/14/2021, radiographs 09/14/2022 FINDINGS: There is 2 mm anterolisthesis of C4 on C5. Vertebral body heights are normal. There are deya nges of anterior fusion procedure at C3-C4 with interbody device and anterior plate and screws. There is severely decreased disc height at C5-C6. The spinal cord signal intensity is normal. The followin g disc levels are specifically discussed: C2-C3: There is a central protrusion. There is no uncovertebral joint osteoarthritis. There is severe right and moderate left facet joint osteoarthritis. There is mild right neural foraminal stenosis. T here is no central canal stenosis. C3-C4: There is mild bilateral uncovertebral joint hypertrophy. There is severe bilateral facet joint osteoarthritis. There is mild bilateral neural foraminal stenosis. There is no central canal stenosi s. C4-C5: The disc does not extend beyond the endplate margin. There is mild left uncovertebral joint hy pertrophy. There is ankylosis of left facet joint with severe hypertrophy. There is moderate left jonathan ral foraminal stenosis. There is no central canal stenosis. C5-C6: The disc is bulging. There is severe bilateral uncovertebral joint osteoarthritis. There is se gama bilateral facet joint osteoarthritis. There is mild bilateral neural foraminal stenosis. There i s mild central canal stenosis. C6-C7: The disc does not extend beyond the endplate margin. There is no uncovertebral joint osteoarth ritis. There is severe bilateral facet joint osteoarthritis. There is mild bilateral neural foraminal stenosis. There is no central canal stenosis. C7-T1: The disc does not extend beyond the endplate margin. There is no uncovertebral joint osteoarth ritis. There is moderate right and severe left facet joint osteoarthritis. There is mild left neural foraminal stenosis. There is no central canal stenosis. IMPRESSION: 1. Anterior fusion procedure at C3-C4, new from 11/14/21. 2. Severe cervical spondylosis, stable at other levels from 11/14/2021. Reviewed, dictated and finalized at location A.
== END 2022-11-14 12:36 | disposition home or self-care (01) ==
PROVIDERS: PCP Family Medicine; Visit Provider Neurological Surgery
DX: M43.02 Spondylolysis, cervical region (principal); Z98.1 Arthrodesis status
CPT/HCPCS: 72141

== ENCOUNTER 2023-03-01 08:20 | Outpatient (CLI) | payer MEDICARE, SELFPAY ==
--- NOTE | ~2023-03-01 | MM_ITS ---
EXAMINATION: MM screening giorgio BI w caitlin HISTORY: Screening mammogram TECHNIQUE: Craniocaudal and mediolateral oblique 3-D tomosynthesis images were obtained and synthetic 2-D images were generated. CAD analysis was submitted and interpreted. COMPARISON: 11/15/2021, 01/16/2019 bilateral screening mammogram examinations BREAST PARENCHYMAL COMPOSITION: There are scattered areas of fibroglandular density. FINDINGS: There is no evidence of suspicious mass, calcification, or architectural distortion to sugg est malignancy in either breast. There has been no suspicious interval change. IMPRESSION: 1. No mammographic evidence of malignancy. 2. Recommend routine screening mammography in one year. BI-RADS Category 1: Negative Reviewed, dictated and finalized at location A. OSITE BOND TECHNICIAN
== END 2023-03-01 08:21 | disposition home or self-care (01) ==
LOC: ANHIMG 08:21
PROVIDERS: PCP Family Medicine; Visit Provider Family Medicine
DX: Z12.31 Encounter for screening mammogram for malignant neoplasm of breast (principal)
CPT/HCPCS: 77063; 77067

== ENCOUNTER 2023-05-18 10:15 | Outpatient (CLI) | payer MEDICARE, SELFPAY ==
--- NOTE | ~2023-05-18 | XR_ITS ---
EXAMINATION: XR_CERV2-3V_CR DATE: 05/18/2023 11:04 INDICATION: Arthrodesis status. TECHNIQUE: 3 views of cervical spine were obtained. COMPARISON: Cervical spine radiographs 09/14/2022 FINDINGS: There is 5 degrees dextrocurvature of cervicothoracic spine. Vertebral body heights are nor mal. There are changes of anterior fusion procedure at C3-C4 with interbody device and anterior plate and screws. There is moderately decreased disc height at C5-C6. There is multilevel severe facet natali nt osteoarthritis. There is mild central canal stenosis at C5-C6. No prevertebral soft tissue swellin g. IMPRESSION: 1. Anterior fusion procedure at C5-C6. 2. Stable moderate cervical spondylosis. Reviewed, dictated and finalized at location A.
== END 2023-05-18 10:16 | disposition home or self-care (01) ==
LOC: ANHIMG 10:19
PROVIDERS: PCP Family Medicine; Visit Provider Neurological Surgery
DX: Z98.1 Arthrodesis status (principal); M43.02 Spondylolysis, cervical region
CPT/HCPCS: 72040

== ENCOUNTER 2023-07-09 11:52 | Outpatient (CLI) | payer MEDICARE, SELFPAY ==
--- NOTE | ~2023-07-09 | US_ITS ---
EXAMINATION: US venous doppler LE RT DATE: 07/09/2023 12:09 INDICATION: Right lower limb pain. TECHNIQUE: Grayscale ultrasound images without and with compression and Doppler ultrasound images of the right lower extremity veins were obtained. COMPARISON: None. FINDINGS: The visualized portions of right common femoral vein, profunda (deep) femoral vein, femoral vein, pop liteal vein, peroneal veins, posterior tibial veins, and greater saphenous vein outflow are patent. IMPRESSION: 1. No deep venous thrombosis. Reviewed, dictated and finalized at location A.
== END 2023-07-09 11:53 ==
LOC: GOSHIMG 11:53
PROVIDERS: PCP Family Medicine; Visit Provider Nurse Practitioner Family
DX: M79.604 Pain in right leg (principal)
CPT/HCPCS: 93971

== ENCOUNTER 2023-07-20 12:55 | Emergency (ER) | payer MEDICARE, SELFPAY ==
[2023-07-20 13:01] VITALS: BP 160/90; PULSE 80; RESP 17; TEMP 36.4; O2SAT 99
[2023-07-20 13:44] LABS: Basophils Absolute Auto 0.1 K/mm3 (0.0-0.1); Eosinophils Absolute Auto 0.1 K/mm3 (0-0.3); Hematocrit 39.2 % (37.0-47.0); Hemoglobin 13.2 g/dL (12.0-15.0); Immature Granulocyte Absolute 0.01 K/mm3 (0.00-0.031); Immature Granulocyte Percent A 0.2 % (0-0.5); Lymphocytes Absolute Auto 1.15 K/mm3 (0.9-3.2); Lymphocytes Percent Auto 22.9 % (18.3-44.2); Mean Corpuscular HGB Conc 33.7 g/dl (32-36); Mean Corpuscular Hemoglobin 32.4 pg (26-34); Mean Corpuscular Volume 96.3 fl (80-100); Mean Platelet Volume 9.9 fl (7.4-10.4); Monocytes Absolute Auto 0.3 K/mm3 (0.1-0.6); Monocytes Percent Auto 5.8 % (2.6-8.5); Neutrophils Absolute Auto 3.5 K/mm3 (1.3-6.7); Neutrophils Percent Auto 69.1 % (45.5-73.1); Platelet Count Result 314 k/mm3 (150-375); Red Blood Count 4.07 M/mm3 (4.2-5.4); Red Cell Distribution Width 12.7 % (11.5-14.5)
[2023-07-20 13:55] LABS: Anion Gap 9 mmol/L (4-12); Blood Urea Nitrogen 15 mg/dL (7-17); Calcium 9.7 mg/dL (8.4-10.2); Carbon Dioxide 21 mmol/L (22-30); Chloride 109 mmol/L (98-107); Estimated CRCL calculation 71 ml/min; Estimated Glomerular Filt Rate > 60; Glucose 106 mg/dL (65-110); Sodium 139 mmol/L (137-145)
--- NOTE | 2023-07-20 15:00 | ED.FEMALEGU ---
HPI - Female Genitourinary General Chief complaint: Vaginal Bleeding Stated complaint: vaginal bleeding Time Seen by Provider: 07/20/23 13:30 History of Present Illness HPI Narrative: Patient presents here with vaginal bleeding, she had gone to the bathroom and wiped and noticed some pinkness on her toilet paper, and saw a tiny blood clot in the toilet. Denies any dysuria, does not think it came from her anus or urine. Has never had something like this before. Denies any pain or recent trauma, not currently sexually active. Related Data Home Medications Medication Instructions Recorded Confirmed aspirin 81 mg tablet 81 mg PO DAILY 06/08/21 11/13/22 ascorbic acid (vitamin C) 1,000 mg 1 g PO DAILY 11/01/21 11/13/22 capsule biotin 10,000 mcg capsule 10,000 mcg PO DAILY 11/01/21 11/13/22 calcium carbonate (Calcium 600) 600 mg PO DAILY 11/01/21 11/13/22 cholecalciferol (vitamin D3) 125 125 mcg PO DAILY 11/01/21 11/13/22 mcg (5,000 unit) capsule coenzyme Q10 100 mg capsule 400 mg PO DAILY 11/01/21 11/13/22 (CoQ-10) magnesium oxide 250 mg PO DAILY 11/01/21 11/13/22 pyridoxine (vitamin B6) 100 mg 100 mg PO DAILY 11/01/21 11/13/22 tablet vitamin E (dl, acetate) 180 mg 180 mg PO BID 11/01/21 11/13/22 (400 unit) capsule metoprolol succinate 25 mg 25 mg PO DAILY 12/21/22 tablet,extended release 24 hr nifedipine 90 mg tablet,extended 90 mg PO DAILY 05/24/23 release Allergies Allergy/AdvReac Type Severity Reaction Status Date / Time alendronate sodium Allergy Unknown severe Verified 07/09/23 11:15 body aches lovastatin Allergy Unknown Confusion Verified 07/09/23 11:15 amlodipine AdvReac Intermediate Other Verified 07/09/23 11:15 losartan AdvReac Intermediate Other Verified 07/09/23 11:15 metoprolol AdvReac Intermediate Other Verified 07/09/23 11:15 Review of Systems Review of Systems: All systems reviewed & are unremarkable except as noted in HPI and below PMFSH Past Medical History Medical History Anxiety Benign essential tremor Cervical spondylosis with myelopathy Colonoscopy refused Essential (primary) hypertension History of shingles Hyperlipidemia Insomnia Osteopenia Surgical History Surgical History History of esophageal dilatation (~10/2022) History of parathyroidectomy (~01/2013) hx of hyperparathyroid Status post cervical arthrodesis (~05/2022) ACDF C3-C4 Family History Family History Mother Hypertension Father Family history of heart disease in male family member before age 55 Social History Social History Social History: Lives with . Has 2 children and 4 grandchildren. Caffeine- coffee daily Smoking status: Never smoker Second hand tobacco smoke exposure: No Alcohol intake: current Drinks per week: 3 Alcohol use details: couple drinks weekly Substance use: current Substance use type: does not use Other substance usage details: CBD Do You Feel Safe in your Home?: Yes Lack of Transportation: No Lack of Food: Never True Current Housing: I Have Housing Concerned About Future Housing: No Difficulty Paying Gas/Electric Bills: No Difficulty Paying for Meds: No Currently Unemployed: No Education: High School Diploma/GED Difficulty w/ Childcare or Family Care: No Living arrangements: with family Occupation/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
== END 2023-07-20 14:28 | disposition home or self-care (01) ==
LOC: ANHED 14:11
PROVIDERS: Emergency Provider Emergency Medicine; PCP Family Medicine
DX: N93.8 Other specified abnormal uterine and vaginal bleeding (principal); Z79.82 Long term (current) use of aspirin; F41.9 Anxiety disorder, unspecified; I10 Essential (primary) hypertension; E78.5 Hyperlipidemia, unspecified; M85.80 Other specified disorders of bone density and structure, unspecified site
CPT/HCPCS: 36415; 80048; 85025; 99283

== ENCOUNTER 2023-08-03 12:32 | Outpatient (CLI) | payer MEDICARE, SELFPAY ==
--- NOTE | ~2023-08-03 | US_ITS ---
EXAMINATION: US pelvic complete w TV DATE: 08/03/2023 12:57 INDICATION: N93.9 - Abnormal uterine and vaginal bleeding, unspecified TECHNIQUE: Multiple transabdominal and endovaginal sonographic images of the pelvis were obtained. COMPARISON: None. FINDINGS: Uterus: 6.6 x 5.5 x 3.5 cm. Endometrial complex measures 11 mm and is heterogeneous with multiple cys tic areas. Multiple uterine fibroids measuring up to 2.3 cm. Right Ovary: Not visualized. No adnexal mass Left Ovary: Not visualized. No adnexal mass There is no free fluid in the pelvis. IMPRESSION: Abnormal endometrium, consider endometrial sampling. Multiple uterine fibroids. Ovaries not visualize d. Reviewed, dictated and finalized at location K. IMPRESSION: Abnormal endometrium, consider endometrial sampling. Multiple uterine fibroids. Ovaries not visualized.
== END 2023-08-03 12:33 ==
LOC: GOSHIMG 12:33
PROVIDERS: PCP Family Medicine; Visit Provider Obstetrics & Gynecology
DX: D25.9 Leiomyoma of uterus, unspecified (principal); N93.9 Abnormal uterine and vaginal bleeding, unspecified
CPT/HCPCS: 76830; 76856

== ENCOUNTER 2023-08-06 08:55 | Outpatient (CLI) | payer MEDICARE, SELFPAY ==
[2023-08-06 12:51] LABS: Hematocrit 40.9 % (37.0-47.0); Hemoglobin 13.4 g/dL (12.0-15.0); Mean Corpuscular HGB Conc 32.8 g/dl (32-36); Mean Corpuscular Hemoglobin 32.3 pg (26-34); Mean Corpuscular Volume 98.6 fl (80-100); Mean Platelet Volume 10.5 fl (7.4-10.4); Platelet Count Result 300 k/mm3 (150-375); Red Blood Count 4.15 M/mm3 (4.2-5.4); White Blood Count 4.6 K/mm3 (4.5-10.0)
[2023-08-06 13:11] LABS: Alanine Aminotransferase 20 U/L (6-35); Albumin Level 4.4 g/dL (3.5-5.1); Alkaline Phosphatase 45 U/L (38-126); Anion Gap 2 mmol/L (4-12); Aspartate Amino Transferase 43 U/L (14-36); Bilirubin,Total 0.7 mg/dL (0.2-1.3); Blood Urea Nitrogen 13 mg/dL (7-17); Calcium 9.7 mg/dL (8.4-10.2); Carbon Dioxide 27 mmol/L (22-30); Chloride 109 mmol/L (98-107); Cholesterol 237 mg/dL (0-200); Estimated Glomerular Filt Rate > 60; Glucose 92 mg/dL (65-110); HDL Direct 93 mg/dL; Potassium 4.7 mmol/L (3.4-5.0); Sodium 138 mmol/L (137-145); Triglycerides 86 mg/dL (<150)
[2023-08-06 13:24] LABS: LDL Cholesterol Direct 114 mg/dL
[2023-08-06 13:43] LABS: Thyroid Stimulating Hormone 0.556 uIU/mL (0.465-4.680)
[2023-08-06 14:03] LABS: Vitamin D 25 Hydroxy 49.3 ng/mL
== END 2023-08-06 08:56 | disposition home or self-care (01) ==
PROVIDERS: PCP Family Medicine; Visit Provider Nurse Practitioner
DX: E55.9 Vitamin D deficiency, unspecified (principal); I10 Essential (primary) hypertension
CPT/HCPCS: 36415; 80053; 80061; 82306; 84443; 85027

== ENCOUNTER 2023-08-16 06:18 | Day surgery (SDC) | payer MEDICARE, SELFPAY ==
[2023-08-13 09:08] VITALS: BMI 22.1
[2023-08-13 09:57] VITALS: BMI 22.1
[2023-08-16 07:21] VITALS: BMI 22.0
[2023-08-16] MEDS: LACTATED RINGERS 1,000 ML 150 ML IV CONT (07:32)
--- NOTE | 2023-08-16 07:49 | WPDHPUPDATE1 ---
History and Physical Update Update Date/Time: 08/16/23 07:49 History and Physical has been reviewed, including an updated exam of the patient. There are NO changes in the patient's condition. Risks, benefits, and alternatives have been discussed and questions answered. Patient agrees to proceed with procedure.
--- NOTE | 2023-08-16 07:53 | WPDANESEPPF ---
Anes - Initial Pre Proc Eval Procedure: Operation Date: 08/16/23 08:30 Proposed Procedures p Esophagogastroduodenoscopy - Hamlet Spaulding MD Date/Time: 08/16/23 07:53 Surgeon: Hamlet Spaulding MD Pre Op Diagnosis: Dysphagia unspecified,esophageal web Patient Data Age: 77 Gender: F Height: 1.75 m Weight: 67.8 kg Allergies Allergy/AdvReac Type Severity Reaction Status Date / Time lisinopril Allergy Intermediate Swelling Verified 08/16/23 07:14 of Lip/Tongue/Throat alendronate sodium Allergy Unknown severe Verified 08/16/23 07:14 body aches lovastatin Allergy Unknown Confusion Verified 08/16/23 07:14 amlodipine AdvReac Intermediate Other Verified 08/16/23 07:14 losartan AdvReac Intermediate Other Verified 08/16/23 07:14 Home Medications Medication Instructions Recorded Confirmed Type aspirin 81 mg tablet 81 mg PO DAILY 06/08/21 08/16/23 History ascorbic acid (vitamin C) 1,000 mg 1 g PO DAILY 11/01/21 08/16/23 History capsule biotin 10,000 mcg capsule 10,000 mcg PO DAILY 11/01/21 08/16/23 History calcium carbonate (Calcium 600) 600 mg PO DAILY 11/01/21 08/16/23 History cholecalciferol (vitamin D3) 125 125 mcg PO DAILY 11/01/21 08/16/23 History mcg (5,000 unit) capsule coenzyme Q10 100 mg capsule 400 mg PO DAILY 11/01/21 08/16/23 History (CoQ-10) magnesium oxide 250 mg PO DAILY 11/01/21 08/16/23 History vitamin E (dl, acetate) 180 mg 180 mg PO BID 11/01/21 08/13/23 History (400 unit) capsule omeprazole 20 mg capsule,delayed 20 mg PO .QAM #90 caps 10/23/22 08/16/23 Rx release metoprolol succinate 25 mg 25 mg PO DAILY 12/21/22 08/16/23 History tablet,extended release 24 hr nifedipine 90 mg tablet,extended 90 mg PO DAILY 05/24/23 08/16/23 History release Patient hx anesthesia problems: none Family hx anesthesia problems: none Results Review: All pre-operative results and documents have been reviewed as part of the pre-operative evaluation. [facility] Past Medical History Medical History Anxiety Benign essential tremor Cervical spondylosis with myelopathy Colonoscopy refused Essential (primary) hypertension History of shingles Hyperlipidemia Insomnia Osteopenia Surgical History Surgical History History of esophageal dilatation (~10/2022) History of parathyroidectomy (~01/2013) hx of hyperparathyroid Status post cervical arthrodesis (~05/2022) ACDF C3-C4 Family History Family History Mother Hypertension Father Family history of heart disease in male family member before age 55 Social History Social History Social History: Lives with . Has 2 children and 4 grandchildren. Caffeine- coffee daily Smoking status: Former smoker Second hand tobacco smoke exposure: No Alcohol intake: former Drinks per week: 3 Alcohol use details: couple drinks weekly Substance use: never Substance use type: does not use Other substance usage details: CBD Do You Feel Safe in your Home?: Yes Lack of Transportation: No Lack of Food: Never True Current Housing: I Have Housing Concerned About Future Housing: No Difficulty Paying Gas/Electric Bills: No Difficulty Paying for Meds: No Currently Unemployed: No Education: High School Diploma/GED Difficulty w/ Childcare or Family Care: No Living arrangements: with family Occupation/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
--- NOTE | 2023-08-16 08:38 | SUR.OPER ---
balloon dilated 15-18mm, [id number], [id number]
[2023-08-16 08:40] VITALS: BP 117/58; PULSE 52; RESP 14; O2SAT 99
[2023-08-16 08:50] VITALS: BP 115/64; PULSE 58; RESP 16; O2SAT 98
[2023-08-16 09:00] VITALS: BP 127/66; PULSE 56; RESP 16; O2SAT 100
--- NOTE | 2023-08-16 09:05 | WPDANESPN ---
Anes - Prog Note Post-Op Date/Time: 08/16/23 09:05 Cardiovascular status: normal Respiratory status: normal Airway patency: baseline Mental status: baseline Post-Op hydration status: normal Vital Signs: Last Vital Signs Pulse 56 L 08/16/23 09:00 Resp 16 08/16/23 09:00 BP 127/66 08/16/23 09:00 Pulse Ox 100 08/16/23 09:00 O2 Del Method Room Air 08/16/23 09:00 Pain Score (VAS): 0/10 I/O: Intake & Output 08/15/23 08/16/23 08/16/23 23:59 07:59 15:59 Intake Total 300 Balance 300 Patient Feedback: Patient satisfied with anesthetic care.
== END 2023-08-16 09:06 | disposition home or self-care (01) ==
PROVIDERS: PCP Family Medicine; Visit Provider Internal Medicine Gastroenterology
PROC: 0DJ08ZZ Inspection of Upper Intestinal Tract, Via Natural or Artificial Opening Endoscopic (ICD-10-PCS; CPT 43235; principal; 2023-08-16 08:30)
DX: Q39.4 Esophageal web (principal); R13.19 Other dysphagia
CPT/HCPCS: 43249

== ENCOUNTER 2023-08-27 00:28 | Day surgery (SDC) | payer MEDICARE, SELFPAY ==
--- NOTE | 2023-08-16 09:36 | PC.NURSE ---
Report to the Outpatient Waiting Room, entrance under the green pavilion located off [facility], at time __10:45 on date _08/27/23 . Planned Procedure Time: __12:45 . Time changes happen often and if your time is changed the preop area will call you the afternoon before. - You and your visitor will be asked to self-screen and do not enter if you have any COVID symptoms. - A mask is optional within the hospital at this time. Patients may have clear liquids (water, carbonated beverages, clear teas, apple juice) until 3 hours prior to surgery( 9:45AM ) with a maximum of 20 ounces. - No food from midnight until time of surgery - Infants may have breast milk until 4 hours before surgery, infant formula 6 hours prior to surgery. - Children will be allowed to drink immediately following surgery. If applicable, please bring a bottle or sippy cup to assist with drinking. Juice, water, soda, and popsicles are readily available. For infants on formula, please bring formula the day of surgery. Pacifiers are allowed. Take the following medications with a SIP of water the morning of surgery: ___METOPROLOL,NIFEDIPINE DO NOT STOP ANY OF YOUR OTHER PRESCRIPTION MEDICATIONS PRIOR TO SURGERY ?EXCEPT THE FOLLOWING Medications to discontinue per physician __ALL VITAMINS AND SUPPLEMENTS 3 DAYS PRE OP .LAST DOSE 08/23/[address] GUTIERREZ Please no make-up, nail trinidadian, hairspray, perfume, deodorant, or body powder the day of surgery. No jewelry (including any body piercings) or valuables the day of surgery, leave them at home. Please take a shower or bath the night before, or the morning of, surgery with an antibacterial soap. Wear comfortable, loose fitting clothing. Children are encouraged to wear pajamas. - Jewelry must be removed prior to entering the operating room. Rings and piercings that are not removed may be cut off. - The hospital will not accept responsibility for valuables. - Please leave all valuables, including medications, at home the day of surgery. If you are going home after surgery, a licensed food service driver must drive you home. - NO public transportation without another adult if you receive anesthesia. - We recommend that an adult stay with you for 24 hours following discharge. - We also recommend that you do not drive, make important decision, drink alcoholic beverages, or take any drugs that were not prescribed by your health care provider for at least 24 hours after your discharge time. Follow any additional instructions given to you from your surgeon. If you or anyone in your household have experienced Covid symptoms in the past week, please notify your surgeon or the nurse liaison at the phone number below for possible testing. Telephone instructions given to _PATIENT and asked if any additional questions and then verbalized understanding. Patient advised to call surgeon office or pre surgery nurse liaison [phone] if any additional questions.
[2023-08-16 09:42] VITALS: BMI 22.4
--- NOTE | 2023-08-27 06:52 | WPDHPUPDATE1 ---
History and Physical Update Update Date/Time: 08/27/23 07:30 History and Physical has been reviewed, including an updated exam of the patient. There are NO changes in the patient's condition. But DIABETES SPECIALIST US did reveal a thickened endometrial complex measuring 11mm. Pt was counseled and recommended to proceed with hysteroscopy with D&C (over in office/blind EMB). Risks, benefits, and alternatives have been discussed and questions answered. Patient agrees to proceed with procedure.
[2023-08-27 11:15] VITALS: BP 141/63; PULSE 69; RESP 18; TEMP 36.7; O2SAT 100
--- NOTE | 2023-08-27 12:24 | WPDANESEPPF ---
Anes - Initial Pre Proc Eval Procedure: Operation Date: 08/27/23 12:45 Proposed Procedures p Hysteroscopy, Dilation and Curettage - Flaquita Smart MD Date/Time: 08/27/23 12:24 Surgeon: Flaquita Smart MD Pre Op Diagnosis: post menopausal bleeding Patient Data Age: 77 Gender: F Height: 1.75 m Weight: 65.6 kg Last Vital Signs Temp 36.7 C 08/27/23 11:15 Pulse 69 08/27/23 11:15 Resp 18 08/27/23 11:15 BP 141/63 H 08/27/23 11:15 Pulse Ox 100 08/27/23 11:15 O2 Del Method Room Air 08/27/23 11:15 Allergies Allergy/AdvReac Type Severity Reaction Status Date / Time lisinopril Allergy Intermediate Swelling Verified 08/27/23 11:40 of Lip/Tongue/Throat amlodipine AdvReac Intermediate Other Verified 08/27/23 11:40 losartan AdvReac Intermediate Other Verified 08/27/23 11:40 alendronate sodium AdvReac Unknown severe Verified 08/27/23 11:40 body aches lovastatin AdvReac Unknown Confusion Verified 08/27/23 11:40 Home Medications Medication Instructions Recorded Confirmed Type aspirin 81 mg tablet 81 mg PO DAILY 06/08/21 08/27/23 History ascorbic acid (vitamin C) 1,000 mg 1 g PO DAILY 11/01/21 08/27/23 History capsule biotin 10,000 mcg capsule 10,000 mcg PO DAILY 11/01/21 08/27/23 History calcium carbonate (Calcium 600) 600 mg PO DAILY 11/01/21 08/27/23 History cholecalciferol (vitamin D3) 125 125 mcg PO DAILY 11/01/21 08/27/23 History mcg (5,000 unit) capsule coenzyme Q10 100 mg capsule 400 mg PO DAILY 11/01/21 08/27/23 History (CoQ-10) magnesium oxide 250 mg PO DAILY 11/01/21 08/27/23 History vitamin E (dl, acetate) 180 mg 180 mg PO BID 11/01/21 08/27/23 History (400 unit) capsule omeprazole 20 mg capsule,delayed 20 mg PO .QAM #90 caps 10/23/22 08/27/23 Rx release metoprolol succinate 25 mg 25 mg PO DAILY 12/21/22 08/27/23 History tablet,extended release 24 hr nifedipine 90 mg tablet,extended 90 mg PO DAILY 05/24/23 08/27/23 History release cyanocobalamin (vitamin B-12) 1,000 mcg PO DAILY 08/16/23 08/27/23 History 1,000 mcg capsule Patient hx anesthesia problems: none Family hx anesthesia problems: none Results Review: All pre-operative results and documents have been reviewed as part of the pre-operative evaluation. [facility] Past Medical History Medical History Anxiety Benign essential tremor Cervical spondylosis with myelopathy Colonoscopy refused Essential (primary) hypertension History of shingles Hyperlipidemia Insomnia Osteopenia Surgical History Surgical History History of esophageal dilatation (~10/2022) History of parathyroidectomy (~01/2013) hx of hyperparathyroid Status post cervical arthrodesis (~05/2022) ACDF C3-C4 Family History Family History Mother Hypertension Father Family history of heart disease in male family member before age 55 Social History Social History Social History: Lives with . Has 2 children and 4 grandchildren. Caffeine- coffee daily Years smoked: 2 Smoking status: Former smoker Tobacco type: cigarettes Second hand tobacco smoke exposure: No Smoking end date: 03/05/73 Alcohol intake: former Drinks per week: 3 Alcohol use details: RECENTLY STOPPED DRINKING Substance use: never Substance use type: does not use Other substance usage details: CBD Do You Feel Safe in your Home?: Yes Lack of Transportation: No Lack of Food: Never True Current Housing: I Have Housing Concerned About Future Housing: No Difficulty Paying Gas/Electric Bills: No Difficulty Paying for Meds: No Currently Unemployed: No Education: High School Diploma/GED Difficulty w/ Childcare or Family Care: No Living arrangements: with family Occu
--- NOTE | 2023-08-27 13:09 | W.PM.PROC2 ---
Procedure Note - Detailed Date of Procedure 08/27/23 Pre-op Diagnosis post menopausal bleeding Post-op Diagnosis Other (endometrial polyp and mass) Procedure Performed Hysteroscopy, polypectomy, and D&C Surgeon Flaquita Smart MD Anesthesia MAC Findings Uterus sounded to 7cm, large endometrial polyp arising from the anterior, mid uterine wall, removed with tissue shaver without issue. On further examination; possible other endometrial polyp/mass noted in the right cornua, also removed with the tissue shaver. Good hemostasis at end of case. Fluid deficit: 90cc Description of Procedure Alison was taken to the operating room where she was placed under sedation without complications. She was then prepped and draped in the usual sterile fashion in the dorsal lithotomy position with her legs in low Umesh stirrups. A time-out was performed and no perioperative antibiotics were indicated. A bivalve speculum was placed within the vagina where the cervix was easily identified. The anterior lip of the cervix was grasped with a single-tooth tenaculum. The cervix was then serially dilated to allow for the hysteroscope. The hysteroscope was advanced into the uterine cavity with the above findings noted. Using the Aveta tissue shaver, the large polyp was removed from the cavity without complication. The remaining portion of the cavity was then examined and the right cornual mass/polyp was then noted. That was also removed without issue using the tissue shaver. The cavity was found to then be normal. A curettage was then performed until a good uterine cry was felt throughout the uterus. Good hemostasis was noted. All instruments were removed from the vagina. Sponge, lap, instrument, and needle counts were correct at the end of the procedure. Patient was awoken from anesthesia and taken to recovery with plans of same-day discharge home. Estimated Blood Loss 10 IV Fluids 700 Pathology Yes (endometrial curetting's and endometrial polyp/mass) Complications No immediate complications Condition Stable Disposition Same day [facility] Billing Surgery - Charge Forward: Surgery Billing
[2023-08-27 13:11] VITALS: BP 108/55; PULSE 56; RESP 18; O2SAT 99
[2023-08-27] MEDS: LACTATED RINGERS 1,000 ML 30 ML IV CONT (13:11)
[2023-08-27 13:40] VITALS: BP 135/57; PULSE 56; RESP 18
[2023-08-27 13:55] VITALS: BP 135/62; RESP 18
== END 2023-08-27 14:03 | disposition home or self-care (01) ==
PROVIDERS: PCP Family Medicine; Visit Provider Obstetrics & Gynecology
PROC: 0U5B8ZZ Destruction of Endometrium, Via Natural or Artificial Opening Endoscopic (ICD-10-PCS; CPT 58563; principal; 2023-08-27 12:45)
DX: C54.1 Malignant neoplasm of endometrium (principal); I10 Essential (primary) hypertension; G25.0 Essential tremor; E78.5 Hyperlipidemia, unspecified; F41.9 Anxiety disorder, unspecified; Z98.1 Arthrodesis status; Z79.82 Long term (current) use of aspirin
CPT/HCPCS: 58558; 88305; 88342; J2704; J3010; J7120

== ENCOUNTER 2024-02-06 09:47 | Outpatient (CLI) | payer MEDICARE, SELFPAY ==
[2024-02-06 12:46] LABS: Basophils Absolute Auto 0.1 K/mm3 (0.0-0.1); Basophils Percent Auto 1.3 % (0.2-1.2); Eosinophils Absolute Auto 0.4 K/mm3 (0-0.3); Eosinophils Percent Auto 8.2 % (0-4.4); Hematocrit 39.7 % (37.0-47.0); Hemoglobin 12.9 g/dL (12.0-15.0); Immature Granulocyte Absolute 0.02 K/mm3 (0.00-0.031); Immature Granulocyte Percent A 0.4 % (0-0.5); Lymphocytes Absolute Auto 0.76 K/mm3 (0.9-3.2); Lymphocytes Percent Auto 16.5 % (18.3-44.2); Mean Corpuscular HGB Conc 32.5 g/dl (32-36); Mean Corpuscular Hemoglobin 32.4 pg (26-34); Mean Corpuscular Volume 99.7 fl (80-100); Mean Platelet Volume 10.5 fl (7.4-10.4); Monocytes Absolute Auto 0.4 K/mm3 (0.1-0.6); Monocytes Percent Auto 8.7 % (2.6-8.5); Neutrophils Percent Auto 64.9 % (45.5-73.1); Platelet Count Result 319 k/mm3 (150-375); Red Blood Count 3.98 M/mm3 (4.2-5.4); Red Cell Distribution Width 12.8 % (11.5-14.5); White Blood Count 4.6 K/mm3 (4.5-10.0)
[2024-02-06 12:54] LABS: Alanine Aminotransferase 20 U/L (6-35); Albumin Level 4.5 g/dL (3.5-5.1); Alkaline Phosphatase 48 U/L (38-126); Anion Gap 5 mmol/L (4-12); Aspartate Amino Transferase 44 U/L (14-36); Bilirubin,Total 0.6 mg/dL (0.2-1.3); Blood Urea Nitrogen 23 mg/dL (7-17); Calcium 9.4 mg/dL (8.4-10.2); Carbon Dioxide 27 mmol/L (22-30); Chloride 105 mmol/L (98-107); Estimated Glomerular Filt Rate > 60; Glucose 92 mg/dL (65-110); Potassium 4.4 mmol/L (3.4-5.0); Sodium 137 mmol/L (137-145)
[2024-02-06 14:20] LABS: Cholesterol 259 mg/dL (0-200); HDL Direct 85 mg/dL; Triglycerides 61 mg/dL (<150)
[2024-02-06 14:31] LABS: LDL Cholesterol Direct 121 mg/dL
== END 2024-02-06 09:48 | disposition home or self-care (01) ==
LOC: ANHGOSHLAB 09:48
PROVIDERS: PCP Family Medicine; Visit Provider Nurse Practitioner Family
DX: E55.9 Vitamin D deficiency, unspecified (principal); I10 Essential (primary) hypertension; E78.5 Hyperlipidemia, unspecified
CPT/HCPCS: 36415; 80053; 80061; 82306; 85025

== ENCOUNTER 2024-02-06 10:28 | Outpatient (CLI) | payer MEDICARE, SELFPAY ==
--- NOTE | ~2024-02-06 | XR_ITS ---
AP view of the pelvis and AP and lateral views of the left hip Clinical history: Pain Findings: No acute fracture or dislocation is seen. Osseous alignment is anatomic. There is minimal d egenerative change of both hip joints. Soft tissues are unremarkable. Impression: Minimal degenerative change of both hip joints. Reviewed, dictated and finalized at location . 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
== END 2024-02-06 10:29 | disposition home or self-care (01) ==
LOC: GOSHIMG 10:29
PROVIDERS: PCP Family Medicine; Visit Provider Nurse Practitioner Family
DX: M25.552 Pain in left hip (principal)
CPT/HCPCS: 73502

== ENCOUNTER 2024-02-14 12:14 | Outpatient (CLI) | payer MEDICARE, SELFPAY ==
--- NOTE | ~2024-02-14 | US_ITS ---
EXAMINATION: US thyroid DATE: 02/14/2024 12:53 INDICATION: Localized swelling, mass and lump, neck. TECHNIQUE: Multiple ultrasound images of the thyroid were obtained. COMPARISON: None. FINDINGS: The right thyroid lobe measures 2.1 x 1.5 x 4.5 cm. The left thyroid lobe measures 1.9 x 1.4 x 4.6 c m. In the right thyroid lobe, there is a 10 mm solid, hypoechoic, wider than tall nodule with smooth margin without echogenic foci (TI-RADS TR4). In the right thyroid lobe, there is a 6 mm solid, very hypoechoic, wider than tall nodule with smooth margin without echogenic foci (TR4). In the left thyro id lobe, there is a 7 mm solid, hypoechoic, wider than tall nodule with smooth margin without echogen ic foci (TR4). IMPRESSION: 1. Small thyroid nodules. Consider thyroid ultrasound in one year. 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
== END 2024-02-14 12:15 | disposition home or self-care (01) ==
PROVIDERS: PCP Family Medicine; Visit Provider Nurse Practitioner Family
DX: E04.1 Nontoxic single thyroid nodule (principal); R22.1 Localized swelling, mass and lump, neck; R13.0 Aphagia
CPT/HCPCS: 76536

== ENCOUNTER 2024-05-10 09:37 | Outpatient (CLI) | payer MEDICARE, SELFPAY ==
--- NOTE | ~2024-05-10 | MM_ITS ---
EXAMINATION: MM screening [facility] BI w caitlin HISTORY: Screening mammogram TECHNIQUE: Craniocaudal and mediolateral oblique 3-D tomosynthesis images were obtained and synthetic 2-D images were generated. CAD analysis was submitted and interpreted. COMPARISON: 03/01/2023, 11/15/2021, 01/16/2019 BREAST PARENCHYMAL COMPOSITION:Not Dense. There are scattered areas of fibroglandular density. FINDINGS: No suspicious mass, calcification, or architectural distortion are identified in either sherie ast to suggest malignancy. There has been no suspicious interval change. IMPRESSION: No mammographic evidence of malignancy. Recommend routine screening mammography in one year. BI-RADS Category 1: Negative Reviewed, dictated and finalized at location .
--- NOTE | ~2024-05-10 | DEXA_ITS ---
Bone Density Report Name: AYAN GAUTAM Age: 78 Sex: Female Ethnicity: White Date of : 1945 Indication: osteopenia; height loss; cancer; hysterectomy; Referring Provider: RUSSELL CANELA Study: Bone densitometry was performed. Exam Date: May 10, 2024 Accession number: [id number] Bone Density: Region BMD T-score Z-score Classification AP Spine(L1-L4) 1.184 1.2 3.8 Normal Femoral Neck (Left) 0.690 -1.4 0.8 Osteopenia Total Hip (Left) 0.824 -1.0 0.9 Normal Femoral Neck (Right) 0.672 -1.6 0.6 Osteopenia Total Hip (Right) 0.777 -1.3 0.6 Osteopenia Total Hip Mean 0.801 -1.2 0.8 Osteopenia World Health Organization criteria for BMD impression classify patients as: Normal (T-score at or above -1.0), Osteopenia (T-score between -1.0 and -2.5), or Osteoporosis (T-score at or below -2.5). 10-year Fracture Risk(1): Major Osteoporotic Fracture 12% Hip Fracture 2.7% Reported Risk Factors: [place] (), Neck BMD=0.672, BMI=23.5 (1) FRAX(R) Version 3.08. Fracture probability calculated for an untreated patient. Fracture probability may be lower if the patient has received treatment. Previous Exams: Region Exam Age BMD T-score BMD Change BMD Change Date g/cm2 vs Baseline vs Previous AP Spine (L1-L4) 05/10/2024 78 1.184 1.2 0.007 (0.6%)# -0.002 (-0.2%) 11/15/2021 75 1.186 1.3 0.010 (0.8%) 0.010 (0.8%) 07/29/2014 68 1.176 1.2 Total Hip(Left) 05/10/2024 78 0.824 -1.0 -0.024 (-2.8%) 0.012 (1.5%)# 11/15/2021 75 0.812 -1.1 -0.036 (-4.3%) -0.059 (-6.8%) 01/16/2019 73 0.871 -0.6 0.023 (2.7%) 0.023 (2.7%) 07/29/2014 68 0.848 -0.8 Total Hip(Right) 05/10/2024 78 0.777 -1.3 -0.074 (-8.7%) -0.077 (-9.0%) 11/15/2021 75 0.854 -0.7 0.003 (0.3%) -0.033 (-3.7%) 01/16/2019 73 0.887 -0.4 0.036 (4.2%)* 0.036 (4.2%)* 07/29/2014 68 0.851 -0.7 *Denotes significance at 95% confidence level, LSC for AP Spine = 0.022 g/cm2, LSC for Total Hip = 0.027 g/cm2 # Denotes dissimilar scan types or analysis methods Clinical Information Provided by Patient: Has used the following medications: Vitamin D Has the following medical conditions: Cancer, Hysterectomy Patient maximum height was 71 Menopause Age: 48 No regular weight bearing exercise Drinks caffeinated beverages Onset of menses at age 15 Number of children 2 Impression: The patient has low bone mass, based on the Right Femoral Neck T-score. The patient has an estimated ten-year risk of hip fracture of 2.7% and an estimated ten-year risk of major fracture of 12%, based on the WHO FRAX algorithm. No significant bone loss was observed. Discussion: BONE DENSITY IS LOW AT ONE OR MORE SKELETAL SITES. This patient's lowest T-score is low at one or more skeletal sites. It meets the World Health Organization's (WHO) criteria for ?low bone mass? (T-score between -1.0 and -2.5). The patient's 10-year risk of fracture as calculated by FRAX is less than the threshold where pharmacological therapy is recommended by the National Osteoporosis Foundation (NOF). However, all treatment decisions require clinical judgment and consideration of individual patient factors, including patient preferences, comorbidities, previous drug use, risk factors not captured in the FRAX model (e.g., frailty, falls, vitamin D deficiency, increased bone turnover, interval significant decline in bone density) and possible under or overestimation of fracture risk by FRAX. The patient should follow a healthful lifestyle (good nutrition with adequate calcium and vitamin D, and appropriate weight-bearing exercise). Follow-Up: Consider repeating this study in 2 to 3 years to reassess this patient's status, or sooner if there is some new clinical indication. Reported by: OMERO on 05/10/2024 10:19:00 AM. Reviewed, dictated and finalized at location AKarthik LANGE
--- OUTSIDE RECORDS SUMMARY | 2024-05-10 09:43 | XMS_ITS | Clinical Summary ---
Author Organization [facility] [address] Address [address] [place] [address] Care Team Providers Care Virtual Office Assistant Name Role Phone Dariel Monzon MD Primary Care Provider Flaquita Smart MD Unavailable [phone] Markel Whittaker MD Unavailable [phone] Allergies Active Allergy Reactions Criticality Noted Date Comments Alendronate Other (See comments) Low 04/18/2021 Severe body aches Amlodipine Other (See comments) Low 09/26/2023 Tingling sensation Lisinopril Angioedema High 04/18/2021 Losartan Other (See comments) Low 09/26/2023 Pt unsure of reaction Lovastatin Other (See comments) Low 04/18/2021 Confusion Medications cyanocobalamin (Vitamin B-12) 1,000 mcg tabletIndications:P revention of Vitamin B12 Deficiency Take 1 tablet (1,000 mcg total) by mouth daily Time of day varies Active pyridoxine (VITAMIN B-6) 100 mg tabletIndications:s upplement Take 1 tablet (100 mg total) by mouth daily Time of day varies Active biotin 10,000 mcg capsuleIndications: supplement Take 1 capsule (10,000 mcg total) by mouth daily Time of day varies Active cholecalciferol (VITAMIN D-3) 5,000 unit tablet Take 1 tablet (5,000 Units total) by mouth daily Active coenzyme Q10 200 mg capsuleIndications: supplement Take 1 capsule (200 mg total) by mouth daily Time of day varies Active vitamin E (AQUASOL E) 1,000 unit capsule Take 1 capsule (1,000 Units total) by mouth daily Time of day varies Active calcium carbonate/vitamin D3 (CALCIUM 600 + D,3, ORAL)Indications:curtis pplement Take 1 tablet by mouth daily Time of day varies Active ascorbic acid, vitamin C, (VITAMIN C) 1,000 mg CR tabletIndications:s upplement Take 1 tablet (1,000 mg total) by mouth daily Time of day varies Active turmeric root extract 500 mg capsuleIndications: supplement Take 1 capsule by mouth daily Time of day varies Active zinc 50 mg tabletIndications:s upplement Take 1 tablet by mouth daily Time of day varies Active omeprazole (PriLOSEC) 20 mg capsuleIndications: Treatment of Non-Bleeding Gastric Disorder Take 1 capsule (20 mg total) by mouth daily Time of day varies 3 Active aspirin 81 mg enteric coated tabletIndications:h eart health Take 1 tablet (81 mg total) by mouth daily Time of day varies Active magnesium glycinate 100 mg tabletIndications:s upplement Take 1 tablet/capsu le by mouth daily Time of day varies Active ibuprofen (ADVIL,MOTRIN) 600 mg tablet Take 1 tablet (600 mg total) by mouth every 6 (six) hours as needed for pain 60 tablet 4 Active acetaminophen (TYLENOL) 500 mg tablet Take 2 tablets (1,000 mg total) by mouth every 6 (six) hours as needed for pain 60 tablet 4 Active polyethylene glycol (MIRALAX) 17 gram/dose bulk powder Take 17 g by mouth daily 510 g 4 Active ondansetron ODT (ZOFRAN-ODT) 4 mg disintegrating tablet Take 1 tablet (4 mg total) by mouth every 8 (eight) hours as needed for nausea or vomiting 20 tablet 4 Active oxyCODONE (ROXICODONE) 5 mg immediate release tabletIndications:P ain Take 1 tablet (5 mg total) by mouth every 4 (four) hours as needed for pain 15 tablet 4 Active NIFEdipine (NIFEdipine CC) 90 mg 24 hr tabletIndications:P rimary hypertension TAKE 1 TABLET BY MOUTH EVERY DAY 90 tablet 1 4 Active metoprolol XL (TOPROL-XL) 25 mg extended release tabletIndications:P rimary hypertension,Palpit ations TAKE 1 TABLET (25 MG TOTAL) BY MOUTH DAILY. 90 tablet 4 02/11/20 25 Active Active Problems Problem Noted Date Diagnosed Date Endometrial cancer 09/13/2023 Cancer Staging:Pathologic stage from 10/08/2023:FIGO Stage IA(pT1a, pN0(sn), cM0, MMRd-, p53-) - Signed by Pia Crum NP on 10/22/2023 Cervical myelopathy 05/29/2022 Systolic dysfunction 07/25/2021 Hypertension 11/13/2012 Overview (06/08/2016): HTN (hypertension) Resolved Problems Problem Noted Date Diagnosed Date Resolved Date Palpitations 04/18/2021 09/13/2023 Loss of balance 04/18/2021 09/13/2023 Hyperparathyroidism 11/22/2012 09/13/19 24 Overview (06/07/2016): Hyperparathyroidism Encounters Date Type Department Care Team Description 04/18/2024 Orders Only [facility]) - [facility] ENT [address] [facility] [address]th [place] [address] [place] [phone] Rodríguez Marte MD Dysphagia, unspecified type (Primary Dx) 04/18/2024 Telephone [facility] - [facility] ENT [address] [facility] 11th [place] [address] [place] [phone] Peggy Martinez MS 04/14/2024 4:40 PM PATENT ATTORNEY Therapy [facility] Otolaryngology [address] [place] [address] 11th [place] [address] [place] [phone] Kimberly Vicente, REVENUE ENFORCEMENT AGENT Dysphagia, unspecified type (Primary Dx); Dysphonia 04/14/2024 4:40 PM PATENT ATTORNEY Office Visit [facility] - [facility] ENT [address] [facility] [address]th [place] [address] [place] [phone] Rodríguez Marte MD Dysphagia, unspecified type; Localized swelling, mass and lump, neck 04/10/2024 Telephone [facility]) - [facility] ENT [address] [facility] [address]th [place] [address] [place] [address] Peggy Martinez, appt from Last 3 Months Immunizations Immunization Administration Dates Next Due Influenza, Trivalent, High D ose, Split, Preservative Free, Intramuscular 11/27/2014,12/28/2011 Pneumococcal Conjugate PCV 13 09/08/2017 Pneumococcal Polysaccharide PPV23 09/24/2018,01/2013 Tdap 08/13/2014,09/18/2011 Surgical History Surgery Date Site/Laterality Comments TUBAL LIGATION Bilateral tubal ligation PARATHYROIDECTOMY 03/05/2012 - 03/04/2013 ANTERIOR CERVICAL DISCECTOMY W/ FUSION CARDIAC CATHETERIZATION ESOPHAGOGASTRODUODENOSCOPY Medical History Medical History Date Comments Hypertension Hyperparathyroidism 2012 Hyperlipidemia GERD (gastroesophageal reflux disease) Anxiety and depression Cervical myelopathy (HCC) Palpitations Systolic dysfunction Thyroid disease Headache Family History Medical History Relation Name Comments Diabetes type II Cousin Coronary artery disease Father Heart attack Father Hypertension Mother Pacemaker Mother Migraines Other 1 Heart disease Other 2 Hypertension Other 3 Asthma Sister Relation Name Status Comments Cousin Father (Age 73) Mother Alive Other 1 Other 2 Other 3 Sister Alive Social History Tobacco Use Types Packs/Day Years Used Date Smoking Tobacco: Former Cigarettes Q uit: 1970 Smokeless Tobacco: Never Tobacco Cessation:Counseling Given: Not Answered Alcohol Use Standard Drinks/Week Comments Yes 0 (1 standard drink = 0.6 oz pur e alcohol) AUDIT-C Answer Date Recorded Q1: How often do you have a drink containing alcohol? Never 10/08/2023 Q2: How many drinks containi ng alcohol do you have on a typical day when you are drinking? Patient does not drink Q3: How often do you have si x or more drinks on one occasion? Never 10/08/2023 Personal Safety Answer Date Recorded Have you ever been in or are you currently in a harmful physical or emotional relationship or is someone making you feel afraid or unsafe? Denies 10/08/2023 Comments No Sex and Gender Information Value Date Recorded Sex Assigned at Not on file Legal Sex Female 10:37 AM PATENT ATTORNEY Gender Identity Not on file Sexual Orientation Not on file Obstetrics History Para Term AB IAB SAB Ectopic Multiple Livin g Live Births 2 1 1 2 Date Outcome GA Total Labor Labor/2nd/3rd Weight Sex Type Anes PTL Noris A1 A5 Name Clin SAB Last Filed Vital Signs Vital Sign Reading Time Taken Comments Blood Pressure 170/75 12/06/2023 2:26 PM CDT Pulse 64 12/06/2023 2:26 PM CDT Temperature 36.6 C (97.8 F) 12/06/2023 2:26 PM CDT Respiratory Rate 18 12/06/2023 2:26 PM CDT Oxygen Saturation 96% 12/06/2023 2:26 PM CDT Inhaled Oxygen Concentration - - Weight 68.9 kg (152 lb) 04/14/2024 4:17 PM PATENT ATTORNEY Height 172.7 cm (5' 8 ) 04/14/2024 4:17 PM PATENT ATTORNEY Body Mass Index 23.11 04/14/2024 4:17 PM PATENT ATTORNEY Plan of Treatment Health Maintenance Due Date Last Done Comments Depression Screening 1945 Hepatitis C Screening 1945 Osteoporosis Screening-Bone Density Scan 1945 Hepatitis B Screening 1964 Zoster Vaccine (1 of 2) 1996 Well Visit 65+ 12/15/2011 Covid-19 Vaccine (4 - 2023-2 5 season) 2023 02/19/2021, 05/14/2020, 04/16/2020 Influenza Vaccine (#1) 2023 11/27/2014, 2011 DTaP/Tdap/Td Vaccine (3 - Td or Tdap) 08/13/2024 08/13/2014, 09/18/2011 Fall Risk Assessment 10/07/2024 10/08/2023 Colon Cancer Screening-Colonoscopy Discontinued 2011 Pneumococcal vaccine 65+ Completed 019, 09/08/2017, 11/13/2012 Medical Devices Implanted Type Area Chimney Mechanic Device Identifier Shelf Expiration Date Model / Serial / Lot [employer] Allograft Bone Putty 2.5cc 700-025 - [id number] Implanted:Qty: 1 on 05/29/2022 by Yumiko Choi MD at [facility] N/A: Neck [employer] [id number] 11/02/2024 700-025 / / [id number] Orthofix Spinal Implants Cage Spinal Cervical 5 Degree Acdf Mini Construx [id number] Titanium 37-7006sp - [id number] Implanted:Qty: 1 on 05/29/2022 by Yumiko Choi MD at [facility] N/A: Neck Orth[employer]ix Spinal Implants 08/17/2026 [id number] / / [id number] [employer] Plate 1-Level 14 Mm Cervical 300-0114 - [id number] Implanted:Qty: 1 on 05/29/2022 by Yumiko Choi MD at [facility] N/A: Neck [employer] 300-0114 / / [employer] Screw Self Drilling Variable 4.0x14mm [id number] - [id number] Implanted:Qty: 4 on 05/29/2022 by Yumiko Choi MD at [facility] N/A: Neck [employer] [id number] / / Procedures Procedure Name Priority Date/Time Associated Diagnosis Comments COLONOSCOPY 10/02/2011 12:00 AM CDT from Last 3 Months or Most Recently Relevant to Health Maintenance Results * COLONOSCOPY (10/02/2011 12:00 AM CDT) Anatomical Region Laterality Modality Other Narrative 10/02/2011 12:00 AM CDT Ordered by an unspecified provider. Procedure Note Provider, MD Nitish - 10/02/2011 12:00 AM CDT PROCEDURE REPORT Patient: NANCY DENSON Account: [id number] Room No: : 1945 Patient Type: SDS Attend.: Hamlet Puente M.D. Admit Date: 10/03/2011 Dict.: Hamlet Puente M.D. Disch. Date:10/03/2011 The patient was seen on 10/03/2011. The patient referred by Dr. Irma De La Fuente. PREVIOUS PROCEDURE None. X-RAYS None. HISTORY AND PHYSICAL EXAM The patient is a 65-year-old white female referred now for screening colonoscopy. She denies any specific complaints and there is no familyhistory. PHYSICAL EXAMINATION Physical examination today is that of a well developed, well nourishedwhite female in no acute distress. She is nonicteric. Her lungs were clear.Heart was regular. GI was soft and supple. Extremities showed no calf pain,cords or edema. PREPROCEDURE DIAGNOSIS Screening colonoscopy in a 65-year-old female. PHYSICIAN Hamlet Puente M.D. INSTRUMENT USED [employer] video endoscope. MEDICATIONS Per anesthesia. FINDINGS The colonoscope was introduced into the rectum in the left lateralposition and passed to the cecum. The patient tolerated the procedure well. Therewere no complications. On withdrawal of the colonoscope, the mucosa appearednormal with a normal vascular pattern. No polyps. No masses were noted in thececum, right transverse or left colon. The rectosigmoid and rectum wereotherwise normal. Preparation was excellent. Retroflexion view of the internalanal areas showed small to moderate internal hemorrhoidal tissue. No otherperianal disease. No rectal masses. COMPLICATIONS None. POSTPROCEDURE DIAGNOSES 1. Normal screening colonoscopy to cecum in a 65-year-old female. 2. Withdrawal time of 11 minutes and 27 seconds. POSTPROCEDURE ORDERS 1. Postsedation instructions. 2. High fiber diet. 3. [place] [employer] Screening recommendations for colorectaldisease. 4. Followup with Dr. Irma De La Fuente. 5. Followup will otherwise be on a p.r.n. basis. Hamlet Puente M.D. AYAN/sabine TD: 10/03/2011 15:20 CC: Irma De La Fuente M.D. Authenticated by Hamlet Puente MD On 10/08/2011 07:13:42 AM us Historical Provider ENDOSCOPY PROCEDURES Anna l Result from Last 3 Months or Most Recently Relevant to Health Maintenance Insurance AETNA MEDICARE AETNA MEDICARE Advance Directives For more information, please contact: [phone] Documents on File Type Date Recorded Patient Adult Literacy Instructor Expl anation Power of Farmworker [employer] 05/11/2022 10:58 AM * Full Code (Latest Code Status on File) Date Activated Date Inactivated Comments 05/29/2022 11:25 AM 05/30/2022 2:00 PM Care Teams Virtual Office Assistant Relationship Specialty Start Date End Date Dariel Monzon MD [address] [facility] [address] [place] [address] PCP - General Family Practice 01/08/23 Flaquita Smart MD [address] [facility] [address] [place] [address] Obstetrics and Gynecology 10/22/23 Markel Whittaker MD [address] [facility] [address] [address] Consulting Physician Cardiology 10/22/23
--- OUTSIDE RECORDS SUMMARY | 2024-05-10 09:43 | XMS_ITS ---
Author Organization [facility] [address] Address [address] [place] [address] Care Team Providers Care Pipe Line Inspector Name Role Phone Dariel Monzon MD Primary Care Provider Flaquita Smart MD Unavailable [phone] Markel Whittaker MD Unavailable [phone] Active Problems Problem Noted Date Diagnosed Date Endometrial cancer 09/13/2023 Cancer Staging:Pathologic stage from 10/08/2023:FIGO Stage IA(pT1a, pN0(sn), cM0, MMRd-, p53-) - Signed by Pia Crum NP on 10/22/2023 Cervical myelopathy 05/29/2022 Systolic dysfunction 07/25/2021 Hypertension 11/13/2012 Overview (06/08/2016): HTN (hypertension) Current Treatment and Therapy Plans No current plan information found. Past Treatment and Therapy Plans No past plan information found. Lifetime Dose Tracking * Chemical Lifetime Dose Automatic Entry Manual Entr y Fluoro Time 0.065 minutes 0.065 minutes 0 minutes Air kerma at the reference point (Ka,r) 0.176 mGy 0 .176 mGy 0 mGy Resolved Problems Problem Noted Date Diagnosed Date Resolved Date Palpitations 04/18/2021 09/13/2023 Loss of balance 04/18/2021 09/13/2023 Hyperparathyroidism 11/22/2012 09/13/19 24 Overview (06/07/2016): Hyperparathyroidism
--- OUTSIDE RECORDS SUMMARY | 2024-05-10 09:43 | XMS_ITS | Clinical Summary ---
Author Organization [facility] Address [address] [place] [address] Care Team Providers Care Oracle Adf Consultant Name Role Phone Katelin Li [facility] Primary Care Provider Immunizations Name Administration Dates Next Due MODERNA COVID-19 (12+) MRNA, LNP-S, PF, 100 MCG/ 0.5 ML DOSE 05/14/2020,04/16/2020 Social History Tobacco Use Types Packs/Day Years Used Date Smoking Tobacco: Never Assessed Comments Unknown Sex and Gender Information Value Date Recorded Sex Assigned at Not on file Legal Sex Female 9:46 AM SENIOR COMMUNICATIONS SPECIALIST Gender Identity Not on file Sexual Orientation Not on file Plan of Treatment Health Maintenance Due Date Last Done Comments Hepatitis C 1963 DTaP, Tdap and Td Vaccines ( 1 - Tdap) 1965 Zoster Vaccines (1 of 2) 1996 Annual Medicare Wellness Visit 12/15/2011 Dexa Scan (General) 12/15/2011 Pneumococcal Vaccine: 65+ Years (2 of 2 - PPSV23 or PCV20) 09/08/2018 09/08/2017 RSV Immunization or 60+ Years (1 - 1-dose 75+ series) 2021 COVID-19 Vaccine (3 - 2023-2 5 season) 2023 05/14/2020, 04/16/2020 Influenza Adult (#1) 2023 Meningococcal B Vaccine Aged Out No l onger eligible based on patient's age to complete this topic Meningococcal Vaccine Aged Out No josias nayan eligible based on patient's age to complete this topic RSV Immunizations Under 20 Months Aged Out No longer eligible b ased on patient's age to complete this topic Insurance MED REPLACE [facility] MEDICARE Care Teams Oracle Adf Consultant Relationship Specialty Start Date End Date Katelin Li FNP [address] [place] [address] [address] [place] [address] PCP - General Nurse Practitioner Family 09/20/21
--- OUTSIDE RECORDS SUMMARY | 2024-05-10 09:43 | XMS_ITS | Referral Summary ---
Author Organization [facility] [address] Address [address] [place] [address] Care Team Providers Care Bicycle Repairer Name Role Phone Dariel Monzon MD Primary Care Provider Flaquita Smart MD Unavailable [phone] Markel Whittaker MD Unavailable [phone] Encounters Date Type Department Care Team Description 04/18/2024 [facility] Only [facility] - [facility] ENT [address] [facility] Advanced Medicine 11th [place] [address] [place] [phone] Rodríguez Marte MD Dysphagia, unspecified type (Primary Dx) 04/18/2024 Telephone [facility] - [facility] ENT [address] [facility] Advanced Medicine 11th [place] [address] [place] [phone] Peggy Martinez MS 04/14/2024 4:40 PM FOUNDATION DIRECTOR Therapy [facility] Otolaryngology [address] [facility] Advanced Medicine 11th [place] [address] [place] [phone] Kimberly Vicente, AMANDA Dysphagia, unspecified type (Primary Dx); Dysphonia 04/14/2024 4:40 PM FOUNDATION DIRECTOR Office Visit [facility] ([facility]) - [facility] ENT [address] [facility] [address]th [place] [address] [place] [address] Rodríguez Marte MD Dysphagia, unspecified type; Localized swelling, mass and lump, neck 04/10/2024 Telephone [facility]) - [facility] ENT [address] [facility] [address]th [place] [address] [place] [phone] Peggy Martinez, MS appt from Last 3 Months Allergies Active Allergy Reactions Criticality Noted Date [...] Hyperparathyroidism 11/22/2012 09/13/19 24 Overview (06/07/2016): Hyperparathyroidism Immunizations Immunization Administration Dates Next Due Influenza, Trivalent, High D ose, Split, Preservative Free, Intramuscular 11/27/2014,12/28/2011 Pneumococcal Conjugate PCV 13 09/08/2017 Pneumococcal Polysaccharide PPV23 09/24/2018,01/2013 Tdap 08/13/2014,09/18/2011 Social History Tobacco Use Types Packs/Day Years [...] on file Legal Sex Female 10:37 AM FOUNDATION DIRECTOR Gender Identity Not on file Sexual Orientation Not on file Last Filed Vital Signs Vital Sign Reading Time Taken Comments Blood Pressure 170/75 12/06/2023 2:26 PM CDT Pulse 64 12/06/2023 2:26 PM CDT Temperature 36.6 C (97.8 F) 12/06/2023 2:26 PM CDT Respiratory Rate 18 12/06/2023 2:26 PM CDT Oxygen Saturation 96% 12/06/2023 2:26 PM CDT Inhaled Oxygen Concentration - - Weight 68.9 kg (152 lb) 04/14/2024 4:17 PM FOUNDATION DIRECTOR Height 172.7 cm (5' 8 ) 04/14/2024 4:17 PM FOUNDATION DIRECTOR Body Mass Index 23.11 04/14/2024 4:17 PM FOUNDATION DIRECTOR Plan of Treatment Not on file Medical Devices Implanted Type Area Small Engine Mechanic Device Identifier Shelf Expiration Date Model / Serial / Lot [employer] Allograft Bone Putty 2.5cc 700-025 - [id number] Implanted:Qty: 1 on 05/29/2022 by Yumiko Choi MD at [facility] N/A: Neck [employer] [id number] 11/02/2024 700-025 / / [id number] Orthofix Spinal Implants Cage Spinal Cervical 5 Degree Acdf Mini Construx [id number] Titanium 37-7006sp - [id number] Implanted:Qty: 1 on 05/29/2022 by Yumiko Choi MD at [facility] N/A: Neck [employer] Spinal Implants 08/17/2026 [id number] / / [id number] [employer] Plate 1-Level 14 Mm Cervical 300-0114 - [id number] Implanted:Qty: 1 on 05/29/2022 by Yumiko Choi MD at [facility] N/A: Neck [employer] 300-0114 / / [employer] Screw Self Drilling Variable 4.0x14mm [id number] - [id number] Implanted:Qty: 4 on 05/29/2022 by Yumiko Choi MD at [facility] N/A: Neck [employer] [id number] / / Procedures Procedure Name Priority Date/Time Associated Diagnosis Comments COLONOSCOPY 10/02/2011 12:00 AM CDT from Last 3 Months or Most Recently Relevant to Health Maintenance Results * COLONOSCOPY (10/02/2011 12:00 AM CDT) Anatomical Region Laterality Modality Other Narrative 10/02/2011 12:00 AM CDT Ordered by an unspecified provider. Procedure Note ProviderNitish MD - 10/02/2011 12:00 AM CDT PROCEDURE REPORT Patient: NANCY DENSON Account: [id number] Room No: : 1945 Patient Type: SDS [...] female. PHYSICIAN Hamlet Puente M.D. INSTRUMENT USED [employer] video endoscope. MEDICATIONS Per anesthesia. FINDINGS The [...] Postsedation instructions. 2. High fiber diet. 3. [place] [employer] Screening recommendations for colorectaldisease. 4. Followup with Dr. Irma De La Fuente. 5. Followup will otherwise be on a p.r.n. basis. Hamlet Puente M.D. AYAN/sabine TD: 10/03/2011 15:20 CC: Irma De La Fuente M.D. Authenticated by Hamlet Puente MD On 10/08/2011 07:13:42 AM Historical Provider ENDOSCOPY PROCEDURES Anna l Result from Last 3 Months or Most Recently Relevant to Health Maintenance Insurance AETNA MEDICARE Advance Directives For more information, please contact: [phone] Documents on File Type Date Recorded Patient Shipping Hand Expl anation Power of Compliance Aide 05/11/2022 10:58 AM * Full Code (Latest Code Status on File) Date Activated Date Inactivated Comments 05/29/2022 11:25 AM 05/30/2022 2:00 PM Care Teams Bicycle Repairer Relationship Specialty Start Date End Date Dariel Monzon MD [address] [facility] [address] [place] [address] PCP - General Family Practice 01/08/23 Flaquita Smart MD [address] [facility] [address] [place] [address] Obstetrics and Gynecology 10/22/23 Markel Whittaker MD [address] [place] [address] [address] [place] [address] Consulting Physician Cardiology 10/22/23
== END 2024-05-10 09:38 | disposition home or self-care (01) ==
LOC: ANHIMG 09:41
PROVIDERS: PCP Family Medicine; Visit Provider Nurse Practitioner Family
DX: Z12.31 Encounter for screening mammogram for malignant neoplasm of breast (principal); M85.89 Other specified disorders of bone density and structure, multiple sites; Z78.0 Asymptomatic menopausal state
CPT/HCPCS: 77063; 77067; 77080

== ENCOUNTER 2024-06-18 09:22 | Outpatient (CLI) | payer MEDICARE, SELFPAY ==
--- NOTE | ~2024-06-18 | XR_ITS ---
Clinical Indication: Cough PA and lateral views of the chest: Comparison: 01/16/2022 Findings: The lungs are clear, without evidence of focal consolidation or pleural effusion. Cardiome diastinal silhouette is within normal limits. Bones and soft tissues are unremarkable. Impression: Normal chest. Reviewed, dictated and finalized at location . Impression: Normal chest.
== END 2024-06-18 09:23 | disposition home or self-care (01) ==
PROVIDERS: PCP Nurse Practitioner Family; Visit Provider Nurse Practitioner Family
DX: R05.9 Cough, unspecified (principal)
CPT/HCPCS: 71046

== ENCOUNTER 2024-08-21 08:50 | Outpatient (CLI) | payer MEDICARE, SELFPAY ==
--- OUTSIDE RECORDS SUMMARY | 2024-08-21 09:01 | XMS_ITS | Encounter Summary ---
Author Organization [facility] Healthcare Address [address] [place] [address] Care Team Providers Care Junior Software Developer Name Role Phone Dariel Monzon MD Primary Care Provider Flaquita Smart MD Unavailable [phone] Markel Whittaker MD Unavailable [phone] Encounter Details Date Type Department Care Team (Latest Contact Info) Description 07/04/2024 Results Follow-Up [facility] Cardiology [address] [id number] Markel Whittaker MD [address] [place] [id number] Transthoracic Echo (TTE) Complete W Doppler/CF Social History Tobacco Use Types Packs/Day Years Used Date Smoking Tobacco: Former Cigarettes Q uit: 1970 Smokeless Tobacco: Never Alcohol Use Standard Drinks/Week Comments Yes 0 [...] on file Legal Sex Female 10:37 AM [employer] Gender Identity Not on file Sexual Orientation Not on file documented as of this encounter Plan of Treatment Not on file documented as of this encounter Visit Diagnoses Not on filedocumented in this encounter Care Teams Junior Software Developer Relationship Specialty Start Date End Date Dariel Monzon MD [address] [facility] [address] [place], [place] [id number] PCP - General Family Practice 01/08/23 Flaquita Smart MD [address] [place] [address] Obstetrics and Gynecology 10/22/23 Markel Whittaker MD [address] [facility] [address] [address] Consulting Physician Cardiology 10/22/23 documented as of this encounter
--- OUTSIDE RECORDS SUMMARY | 2024-08-21 09:01 | XMS_ITS ---
Author Organization [facility] [address] Address [address] [place] [address] Care Team Providers Care Call Worker Person Name Role Phone Dariel Monzon MD Primary Care Provider Flaquita Smart MD Unavailable [phone] Markel Whittaker MD Unavailable [phone] Active Problems Problem Noted Date Diagnosed Date MARIE (dyspnea on exertion) 06/16/2024 Endometrial cancer 09/13/2023 Cancer Staging:Pathologic stage from [...] Automatic Entry Manual Entr y Fluoro Time 3.265 minutes 3.265 minutes 0 minutes Air kerma at the reference point (Ka,r) 39.076 mGy 3 9.076 mGy 0 mGy Resolved Problems Problem Noted Date Diagnosed Date Resolved Date Palpitations 04/18/2021 09/13/2023 Loss of balance 04/18/2021 09/13/2023 Hyperparathyroidism 11/22/2012 09/13/19 24 Overview (06/07/2016): Hyperparathyroidism
--- OUTSIDE RECORDS SUMMARY | 2024-08-21 09:02 | XMS_ITS | Referral Summary ---
Author Organization [facility] [address] [facility] [address] [place] [address] Care Team Providers Care Gaming Surveillance Observer Name Role Phone Dariel Monzon MD Primary Care Provider Flaquita Smart MD Unavailable [phone] Gilbert Whittaker MD Unavailable [phone] Encounters Date Type Department Care Team Description 07/04/2024 Results Follow-Up [facility] Cardiology [address] [facility] [address] [place] [phone] Gilbert Whittaker MD Transthoracic Echo (TTE) Complete W Doppler/CF 07/03/2024 11:15 AM CDT Ancillary Procedure [facility] Cardiology [address] [place] [address] Systolic dysfunction; Primary hypertension; MARIE (dyspnea on exertion) 06/26/2024 1:00 PM CDT Office Visit [facility] Obstetrics and Gynecology [address] [place] [address] Medicine 13th [place] [phone] Pia Crum NP Encounter for routine cancer follow-up (Primary Dx); Endometrial cancer (HCC); Vulvar atrophy 06/16/2024 9:30 AM CDT Office Visit [facility] Cardiology [address] [place] [phone] Gilbert Whittaker MD Systolic dysfunction (Primary Dx); Primary hypertension; MARIE (dyspnea on exertion) 06/02/2024 Telephone [facility] ENT [address] [facility] Medical Office Building [address] [place] [phone] Martinez, Peggy, MS 05/29/2024 Telephone [facility] Otolaryngology [facility] 3rd [place] [address] Juan Peggy, MS 05/26/2024 Plan of Care Documentation [facility] Speech Therapy 1 [place] [address] 05/26/2024 1:00 PM CDT Office Visit [facility] Advanced Medicine ([facility]) [facility] ENT [address] [facility] 11th [place] [address] [place] [address] Rodríguez Marte MD Dysphagia, unspecified type (Primary Dx) 05/26/2024 11:30 AM CDT Therapy [facility] Speech Therapy 1 [place] [address] Dysphagia, unspecified type (Primary Dx) 05/26/2024 10:32 AM CDT - 05/26/2024 11:59 PM CDT Hospital Encounter [facility] Radiology 1 [place] [address] Dysphagia, unspecified type Discharge Disposition: Discharge to home or self care from Last 3 Months Allergies Active Allergy Reactions Criticality Noted Date Comments Alendronate Other (See comments) Low 04/18/2021 Severe body aches Amlodipine Other (See comments) Low 09/26/2023 Tingling sensation Lisinopril Angioedema High 04/18/2021 Losartan Other (See comments) Low 09/26/2023 Pt unsure of reaction Lovastatin Other (See comments) Low 04/18/2021 Confusion Medications cyanocobalamin (Vitamin B-12) 1,000 mcg tabletIndication s:Prevention of Vitamin B12 Deficiency Take 1 tablet (1,000 mcg total) by mouth daily Time of day varies Active pyridoxine (VITAMIN B-6) 100 mg tabletIndication s:supplement Take 1 tablet (100 mg total) by mouth daily Time of day varies Active biotin 10,000 mcg capsuleIndicatio ns:supplement Take 1 capsule (10,000 mcg total) by mouth daily Time of day varies Active cholecalciferol (VITAMIN D-3) 5,000 unit tablet Take 1 tablet (5,000 Units total) by mouth daily Active coenzyme Q10 200 mg capsuleIndicatio ns:supplement Take 1 capsule (200 mg total) by mouth daily Time of day varies Active vitamin E (AQUASOL E) 1,000 unit capsule Take 1 capsule (1,000 Units total) by mouth daily Time of day varies Active calcium carbonate/vitami n D3 (CALCIUM 600 + D,3, ORAL)Indications :supplement Take 1 tablet by mouth daily Time of day varies Active ascorbic acid, vitamin C, (VITAMIN C) 1,000 mg CR tabletIndication s:supplement Take 1 tablet (1,000 mg total) by mouth daily Time of day varies Active turmeric root extract 500 mg capsuleIndicatio ns:supplement Take 1 capsule by mouth daily Time of day varies Active zinc 50 mg tabletIndication s:supplement Take 1 tablet by mouth daily Time of day varies Active omeprazole (PriLOSEC) 20 mg capsuleIndicatio ns:Treatment of Non-Bleeding Gastric Disorder Take 1 capsule (20 mg total) by mouth daily Time of day varies 10/24/19 23 Active aspirin 81 mg enteric coated tabletIndication s:heart health Take 1 tablet (81 mg total) by mouth daily Time of day varies Active magnesium glycinate 100 mg tabletIndication s:supplement Take 1 tablet/capsu le by mouth daily Time of day varies Active NIFEdipine (NIFEdipine CC) 90 mg 24 hr tabletIndication s:Primary hypertension TAKE 1 TABLET BY MOUTH EVERY DAY 90 tablet 3 06/24/19 25 Active triamcinolone (KENALOG) 0.1 % ointment Thin film to affected vulva qHS for one week, then twice weekly prn. 30 g 1 06/27/19 25 Active metoprolol XL (TOPROL-XL) 25 mg extended release tabletIndication s:Primary hypertension,Pal pitations TAKE 1 TABLET (25 MG TOTAL) BY MOUTH DAILY. 90 tablet 08/09/19 25 026 Active metoprolol XL (TOPROL-XL) 25 mg extended release tabletIndication s:Primary hypertension,Pal pitations TAKE 1 TABLET (25 MG TOTAL) BY MOUTH DAILY. 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 Gender Identity Not on file Sexual Orientation Not on file Last Filed Vital Signs Vital Sign Reading Time Taken Comments Blood Pressure 171/84 06/26/2024 12:51 PM CDT Pulse 69 06/26/2024 12:51 PM CDT Temperature 36.7 C (98.1 F) 06/26/2024 12:51 PM CDT Respiratory Rate 20 06/26/2024 12:51 PM CDT Oxygen Saturation 99% 06/26/2024 12:51 PM CDT Inhaled Oxygen Concentration - - Weight 71.7 kg (158 lb) 06/26/2024 12:51 PM CDT Height 176.5 cm (5' 9.5) 06/16/2024 9:27 AM CDT Body Mass Index 23 06/16/2024 9:27 AM CDT Plan of Treatment Not on file Medical Devices Implanted Type Area Spice Mixer Device Identifier Shelf Expiration Date Model / Serial / Lot [employer] Allograft Bone Putty 2.5cc 700-025 - [id number] Implanted:Qty: 1 on 05/29/2022 by Yumiko Choi MD at [facility] N/A: Neck [employer] [id number] 11/02/2024 700-025 / / [id number] Orthofix Spinal Implants Cage Spinal Cervical 5 Degree Acdf Mini Construx [id number] Titanium 37-7006sp - [id number] Implanted:Qty: 1 on 05/29/2022 by Yumiko Choi MD at [facility] N/A: Neck [employer] Spinal Implants 08/17/2026 [id number] / / [id number] [employer] Plate 1-Level 14 Mm Cervical 300-0114 - [id number] Implanted:Qty: 1 on 05/29/2022 by Yumiko Choi MD at [facility] N/A: Neck [employer] 300-0114 / / [employer] [facility] Screw Self Drilling Variable 4.0x14mm 301-1834 - [id number] Implanted:Qty: 4 on 05/29/2022 by Yumiko Choi MD at [facility] N/A: Neck [employer] [facility] [id number] / / Procedures Procedure Name Priority Date/Time Associated Diagnosis Comments TRANSTHORACIC ECHO (TTE) COMPLETE W DOPPLER/CF WO CONTRAST Routine 07/03/2024 12:22 PM CDT Systolic dysfunction Primary hypertension MARIE (dyspnea on exertion) FL MODIFIED BARIUM SWALLOW W VIDEO Schedule Routine, Read Routine (OP Routine) 05/26/2024 11:33 AM CDT Dysphagia, unspecified type COLONOSCOPY 10/02/2011 12:00 AM CDT from Last 3 Months or Most Recently Relevant to Health Maintenance Results * TRANSTHORACIC ECHO (TTE) COMPLETE W DOPPLER/CF WO CONTRAST (07/03/2024 12:22 PM CDT) EF Mod BP 54 % CONS SCIMAGE Anatomical Region Laterality Modality Ultrasound 07/03/2024 11:3 6 AM CDT Narrative 07/03/2024 12:31 PM CDT [facility] Cardiology [address] [facility] [address], [place] [address] [address] [facility] [address], [place] [address] P:[phone] P:[phone] Echocardiographic Report Patient Name: NANCY DENSON L : 1945 Study Date: 07/03/2024 11:36:51 AM Gender: F Tech: ANDRE Location: [place] Ref Provider: GILBERT WHITTAKER Height(Cm): 175 BSA: 1.87 Weight(Kg): 71.7 Heart Rate: 60 BP: 171 / 84 Quality: Good Order Provider: GILBERT WHITTAKER PROCEDURES: Echocardiographic Report: Transthoracic echocardiogram with complete 2D, M-Mode, and color Doppler examination. With Strain Analysis. INDICATIONS: Systolic Dysfunction, Hypertension, and Dyspnea on Exertion. MEASUREMENTS: 2D/MM Value Range Doppler Value Range EF Mod BP 54 % [ 54 - 74 ] KATERYNA Vmax 2.04 cm2 [ 2.00 - 4.00 ] EF Teich MM 54 % [ 54 - 74 ] AV Mean PG 4 mmHg LVIDd 2D 4.94 cm [ 3.80 - 5.20 ] AV Peak Ervin 1.36 m/s [ 1.00 - 1.70 ] LVIDd MM 5.94 cm [ 3.80 - 5.20 ] AV Peak PG 7 mmHg LVIDs 2D 3.47 cm [ 2.20 - 3.50 ] AV VTI 32.96 cm LVIDs MM 4.27 cm [ 2.20 - 3.50 ] LVOT Diam 1.96 cm [ 1.70 - 2.10 ] LVPWd 2D 1.07 cm [ 0.60 - 0.90 ] LVOT Peak Ervin 0.92 m/s [ 0.70 - 1.10 ] LVPWd MM 0.87 cm [ 0.60 - 0.90 ] LVOT VTI 21.88 cm IVSd 2D 0.77 cm [ 0.60 - 0.90 ] MV E Peak Ervin 0.87 m/s [ 0.60 - 1.30 ] IVSd MM 0.78 cm [ 0.60 - 0.90 ] MV A Peak Ervin 1.01 m/s [ 1.00 - 1.20 ] LA Dimension 2D 3.52 cm [ 2.70 - 3.80 ] MV Mean PG 1 mmHg [ 0 - 5 ] LA Dimension MM 2.48 cm [ 2.70 - 3.80 ] MV PHT 104 msec [ 20 - 100 ] AoR Diam 2D 2.50 cm [ 2.70 - 3.70 ] MVA PHT 2.12 cm2 [ 2.00 - 4.00 ] AoR Diam MM 2.77 cm [ 2.70 - 3.70 ] MV Decel Time 210 msec [ 104 - 258 ] LA Volume Index 44 cc/m2 [ 16 - 34 ] PV Peak Ervin 1.02 m/s [ 0.40 - 0.80 ] TR Peak Ervin 2.25 m/s [ 1.00 - 2.80 ] TR Peak PG 20 mmHg RVSP 23.00 mmHg [ 10.00 - 36.00 ] Lateral E` 0.08 m/s [ 0.10 - 0.15 ] E` 0.06 m/s E/E` 10 2D/MM Value Range Doppler Value Range - FINDINGS: Interpretation Site: Exam was interpreted at [facility]. Left Ventricle: Normal left ventricular size. Mild concentric left ventricular hypertrophy. Normal global left ventricular systolic function. Impaired diastolic relaxation Grade I. Ejection fraction is measured at 54 %. Global Longitudinal Strain is -15 %. Right Ventricle: Normal right ventricular size. Normal right ventricular systolic function. Left Atrium: There is moderate enlargement of left atrium. Right Atrium: The right atrium is normal in size. Atrial Septum: Normal atrial septum. Mitral Valve: Mild mitral valve regurgitation. Aortic Valve: No evidence of hemodynamically significant aortic stenosis by Doppler. Trileaflet aortic valve. Tricuspid Valve: Estimated peak RVSP is 23 mmHg. Mild tricuspid regurgitation. Pulmonic Valve: Normal appearance of the pulmonic valve. No evidence of pulmonic regurgitation. Pericardium: Normal pericardium with no significant pericardial effusion. Aorta: Normal aortic root. IVC: Normal size and normal respiratory collapse consistent with normal right atrial pressure (<5 mmHg). CONCLUSIONS: Normal left ventricular size. Mild concentric left ventricular hypertrophy. Normal global left ventricular systolic function. Impaired diastolic relaxation Grade I. Ejection fraction is measured at 54 %. Global Longitudinal Strain is -15 %. Normal right ventricular size. Normal right ventricular systolic function. There is moderate enlargement of left atrium. Mild mitral valve regurgitation. Estimated peak RVSP is 23 mmHg. Mild tricuspid regurgitation. Electronically Signed By: Sarah Painter MD 07/03/2024 12:31:19 PM CDT Procedure Note Sarah Painter MD - 07/03/2024 [facility] Cardiology [address] [facility] [address], [place] [address] [address] [facility] [id number], [place] [address] [phone] P:[phone] Echocardiographic Report Patient Name: NANCY DENSON L : 1945 Study Date: 07/03/2024 11:36:51 AM Gender: F Tech: [facility] Location: [facility] Provider: GILBERT WHITTAKER Height(Cm): 175 BSA: 1.87 Weight(Kg): 71.7 Heart Rate: 60 BP: 171 / 84 Quality: Good Order Provider: GILBERT WHITTAKER PROCEDURES: Echocardiographic Report: Transthoracic echocardiogram with complete 2D, M-Mode, and color Dopplerexamination. With Strain Analysis. INDICATIONS: Systolic Dysfunction, Hypertension, and Dyspnea on Exertion. MEASUREMENTS: 2D/MM Value Range Doppler ValueRange EF Mod BP 54 % [ 54 - 74 ] KATERYNA Vmax 2.04cm2 [ 2.00 - 4.00 ] EF Teich MM 54 % [ 54 - 74 ] AV Mean PG 4mmHg LVIDd 2D 4.94 cm [ 3.80 - 5.20 ] AV Peak Ervin 1.36m/s [ 1.00 - 1.70 ] LVIDd MM 5.94 cm [ 3.80 - 5.20 ] AV Peak PG 7mmHg LVIDs 2D 3.47 cm [ 2.20 - 3.50 ] AV VTI 32.96cm LVIDs MM 4.27 cm [ 2.20 - 3.50 ] LVOT Diam 1.96 cm[ 1.70 - 2.10 ] LVPWd 2D 1.07 cm [ 0.60 - 0.90 ] LVOT Peak Ervin 0.92m/s [ 0.70 - 1.10 ] LVPWd MM 0.87 cm [ 0.60 - 0.90 ] LVOT VTI 21.88cm IVSd 2D 0.77 cm [ 0.60 - 0.90 ] MV E Peak Ervin 0.87m/s [ 0.60 - 1.30 ] IVSd MM 0.78 cm [ 0.60 - 0.90 ] MV A Peak Ervin 1.01m/s [ 1.00 - 1.20 ] LA Dimension 2D 3.52 cm [ 2.70 - 3.80 ] MV Mean PG 1 mmHg[ 0 - 5 ] LA Dimension MM 2.48 cm [ 2.70 - 3.80 ] MV PHT 104msec [ 20 - 100 ] AoR Diam 2D 2.50 cm [ 2.70 - 3.70 ] MVA PHT 2.12cm2 [ 2.00 - 4.00 ] AoR Diam MM 2.77 cm [ 2.70 - 3.70 ] MV Decel Time 210msec [ 104 - 258 ] LA Volume Index 44 cc/m2 [ 16 - 34 ] PV Peak Ervin 1.02m/s [ 0.40 - 0.80 ] TR Peak Ervin 2.25 m/s [ 1.00 - 2.80 ] TR Peak PG 20 mmHg RVSP 23.00 mmHg [ 10.00 - 36.00 ] Lateral E` 0.08 m/s [ 0.10 - 0.15 ] E` 0.06 m/s E/E` 10 2D/MM Value Range Doppler ValueRange - FINDINGS: Interpretation Site: Exam was interpreted at [facility]. Left Ventricle: Normal left ventricular size. Mild concentric left ventricularhypertrophy. Normal global left ventricular systolic function. Impaired diastolic relaxation Grade I.Ejection fraction is measured at 54 %. Global Longitudinal Strain is -15 %. Right Ventricle: Normal right ventricular size. Normal right ventricular systolicfunction. Left Atrium: There is moderate enlargement of left atrium. Right Atrium: The right atrium is normal in size. Atrial Septum: Normal atrial septum. Mitral Valve: Mild mitral valve regurgitation. Aortic Valve: No evidence of hemodynamically significant aortic stenosis by Doppler.Trileaflet aortic valve. Tricuspid Valve: Estimated peak RVSP is 23 mmHg. Mild tricuspid regurgitation. Pulmonic Valve: Normal appearance of the pulmonic valve. No evidence of pulmonicregurgitation. Pericardium: Normal pericardium with no significant pericardial effusion. Aorta: Normal aortic root. IVC: Normal size and normal respiratory collapse consistent with normal rightatrial pressure (<5 mmHg). CONCLUSIONS: Normal left ventricular size. Mild concentric left ventricularhypertrophy. Normal global left ventricular systolic function. Impaired diastolic relaxation Grade I.Ejection fraction is measured at 54 %. Global Longitudinal Strain is -15 %. Normal right ventricular size. Normal right ventricular systolicfunction. There is moderate enlargement of left atrium. Mild mitral valve regurgitation. Estimated peak RVSP is 23 mmHg. Mild tricuspid regurgitation. Electronically Signed By: Sarah Painter MD 07/03/2024 12:31:19 PM CDT us Gilbert Avani Whittaker MD CV ECHO PROCEDURES F inal Result * FL Modified Barium Swallow W Video (05/26/2024 11:33 AM CDT) Anatomical Region Laterality Modality Head and Neck N/A Radio Fluoroscop y 05/26/2024 2:02 PM CDT Impressions 05/26/2024 2:02 PM CDT The swallowing mechanism is abnormal; see above comments. Please refer to the Speech Pathology procedure note for safe swallow recommendations as well as additional information regarding the oral-pharyngeal swallow function, plan of care, and recommended follow up. Dictated by: Ezequiel Bowman M.D. The radiology attending physician has personally reviewed this study, and had reviewed and/or edited this written report and agrees with it. Electronically signed by: Sarah García M.D. Narrative 05/26/2024 2:02 PM CDT EXAMINATION: MODIFIED BARIUM SWALLOW HISTORY: Dysphagia. TECHNIQUE: This procedure was completed in conjunction with a Speech Language Pathologist. The patient was given barium of multiple different consistencies to swallow. Video fluoroscopy was employed during the exam. FINDINGS: Oral-pharyngeal swallow function is mildly impaired. Penetration: Yes There is penetration of thin liquids, purees, solids. Penetration intermittently sensed. The penetrated material intermittently cleared. Aspiration: Yes There is aspiration of thin liquids. Aspiration is sensed. The aspirated material is cleared. Residue:Yes There is pharyngeal residue of purees and solids. Residue intermittently sensed. The residual material intermittently cleared. Other comments: Anterior discectomy and instrumented fusion of C3-C4. Procedure Note Sarah García MD - 05/26/2024 EXAMINATION: MODIFIED BARIUM SWALLOW HISTORY: Dysphagia. TECHNIQUE: This procedure was completed in conjunction with a Speech Language Pathologist. The patient was given barium of multiple different consistencies to swallow. Video fluoroscopy was employed during the exam. FINDINGS: Oral-pharyngeal swallow function is mildly impaired. Penetration: Yes There is penetration of thin liquids, purees, solids. Penetration intermittently sensed. The penetrated material intermittently cleared. Aspiration: Yes There is aspiration of thin liquids. Aspiration is sensed. The aspirated material is cleared. Residue:Yes There is pharyngeal residue of purees and solids. Residue intermittently sensed. The residual material intermittently cleared. Other comments: Anterior discectomy and instrumented fusion of C3-C4. IMPRESSION: The swallowing mechanism is abnormal; see above comments. Please refer to the Speech Pathology procedure note for safe swallow recommendations as well as additional information regarding the oral-pharyngeal swallow function, plan of care, and recommended follow up. Dictated by: Ezequiel Bowman M.D. The radiology attending physician has personally reviewed this study, and had reviewed and/or edited this written report and agrees with it. Electronically signed by: Sarah García M.D. Rodríguez Melinda Marte MD IM FLUOROSCOPY PROC EDURES Final Result * COLONOSCOPY (10/02/2011 12:00 AM CDT) Anatomical Region Laterality Modality Other Narrative 10/02/2011 12:00 AM CDT Ordered by an unspecified provider. Procedure Note Provider, MD Nitish - 10/02/2011 12:00 AM CDT PROCEDURE REPORT Patient: NANCY DENSON Account: [id number] Room No: : 1945 Patient Type: [facility] Attend.: Hamlet Puente M.D. Admit Date: 10/03/2011 [...] female. PHYSICIAN Hamlet Puente M.D. INSTRUMENT USED [employer] video endoscope. MEDICATIONS Per anesthesia. FINDINGS The [...] Postsedation instructions. 2. High fiber diet. 3. [place] [employer] Screening recommendations for colorectaldisease. 4. Followup with Dr. Irma De La Fuente. 5. Followup will otherwise be on a p.r.n. basis. Hamlet Puente M.D. MA/sabine TD: 10/03/2011 15:20 CC: Irma De La Fuente M.D. Authenticated by Hamlet Puente MD On 10/08/2011 07:13:42 AM Historical Provider ENDOSCOPY PROCEDURES Anna silver Result from Last 3 Months or Most Recently Relevant to Health Maintenance Insurance [employer] MEDICARE Advance Directives For more information, please contact: [phone] Documents on File Type Date Recorded Patient [employer] Expl anation Power of Cna Per Diem 05/11/2022 10:58 AM * Full Code (Latest Code Status on File) Date Activated Date Inactivated Comments 05/29/2022 11:25 AM 05/30/2022 2:00 PM Care Teams Gaming Surveillance Observer Relationship Specialty Start Date End Date Dariel Monzon MD [address] [facility] [address] [place] [address] PCP - General Family Practice 01/08/23 Flaquita Smart MD [address] [place] [address] Obstetrics and Gynecology 10/22/23 Gilbert Whittaker MD [address] [facility] [address] [address] Consulting Physician Cardiology 10/22/23
--- OUTSIDE RECORDS SUMMARY | 2024-08-21 09:02 | XMS_ITS | Clinical Summary ---
Author Organization [facility] [address] Address [address] [place] [address] Care Team Providers Care Investment Accounting Clerk Name Role Phone Dariel Monzon MD Primary Care Provider Flaquita Smart MD Unavailable [phone] Gilbert Whittaker MD Unavailable [phone] Allergies Active Allergy Reactions Criticality Noted Date [...] of balance 04/18/2021 09/13/2023 Hyperparathyroidism 11/22/2012 09/13/19 Overview (06/07/2016): Hyperparathyroidism Encounters Date Type Department Care Team Description 07/04/2024 Results Follow-Up [facility] Cardiology [address] [facility] [address], [place] [address] Gilbert Whittaker MD Transthoracic Echo (TTE) Complete W Doppler/CF 07/03/2024 11:15 AM CDT Ancillary Procedure [facility] Cardiology [address] [place] [phone] Systolic dysfunction; Primary hypertension; MARIE (dyspnea on exertion) 06/26/2024 1:00 PM CDT Office Visit [facility] Obstetrics and Gynecology [facility] Medicine 13th [place] [address] [place] [address] Pia Crum NP Encounter for routine cancer follow-up (Primary Dx); Endometrial cancer (HCC); Vulvar atrophy 06/16/2024 9:30 AM CDT Office Visit [facility] Cardiology [address] [place] [address] Gilbert Whittaker MD Systolic dysfunction (Primary Dx); Primary hypertension; MARIE (dyspnea on exertion) 06/02/2024 Telephone [facility] ENT [address] [facility] Medical Office Building [address] [place] [address] Peggy Martinez, 05/29/2024 Telephone [facility] Otolaryngology [facility] 3rd [place] [address] Peggy Martinez, 05/26/2024 1:00 PM CDT Office Visit [facility] [address] [facility] Advanced Medicine 11th [place] [address] [place] [address] Rodríguez Marte MD Dysphagia, unspecified type (Primary Dx) 05/26/2024 11:30 AM CDT Therapy [facility] Speech Therapy 1 [place] [address] Dysphagia, unspecified type (Primary Dx) 05/26/2024 10:32 AM CDT - 05/26/2024 11:59 PM CDT Hospital Encounter [facility] Radiology 1 [place] [address] Dysphagia, unspecified type Discharge Disposition: Discharge to home or self care 05/26/2024 Plan of Care Documentation [facility] Speech Therapy 1 [place] [address] from Last 3 Months Immunizations Immunization Administration Dates Next Due Influenza, Trivalent, High D ose, Split, Preservative Free, Intramuscular 11/27/2014,12/28/2011 Pneumococcal Conjugate PCV 13 09/08/2017 Pneumococcal Polysaccharide PPV23 09/24/2018,01/2013 Tdap 08/13/2014,09/18/2011 Surgical History Surgery Date Site/Laterality Comments TUBAL LIGATION Bilateral tubal ligation PARATHYROIDECTOMY 03/05/2012 - 03/04/2013 ANTERIOR CERVICAL DISCECTOMY W/ FUSION CARDIAC CATHETERIZATION ESOPHAGOGASTRODUODENOSCOPY Medical History Medical History Date Comments Hypertension Hyperparathyroidism 2013 Hyperlipidemia GERD (gastroesophageal reflux disease) Anxiety and [...] on file 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 Gender Identity Not on file Sexual Orientation Not on file Obstetrics History Para Term AB IAB SAB Ectopic Multiple Livin g Live Births 2 1 1 2 Date Outcome GA Total Labor Labor/2nd/3rd Weight Sex Type Anes PTL Noirs A1 A5 Name Clin SAB Last Filed [...] 06/16/2024 9:27 AM CDT Plan of Treatment Health Maintenance Due Date Last Done Comments Depression Screening 1945 Hepatitis C Screening 1945 Osteoporosis Screening-Bone Density Scan 1945 Hepatitis B Screening 1964 Zoster Vaccine (1 of 2) 1996 Well Visit 65+ 12/15/2011 Covid-19 Vaccine (4 - 2023-2 5 season) 2023 02/19/2021, 05/14/2020, 04/16/2020 DTaP/Tdap/Td Vaccine (3 - Td or Tdap) 08/13/2024 08/13/2014, 09/18/2011 Fall Risk Assessment 10/07/2024 10/08/2023 Influenza Vaccine (Season Ended) 2024 11/28/19 15, 12/28/2011 Colon Cancer Screening-Colonoscopy Discontinued 2011 Pneumococcal vaccine 65+ Completed 019, 09/08/2017, 11/13/2012 Medical Devices Implanted Type Area Senior Java Software Developer Device Identifier Shelf Expiration Date Model / Serial / Lot Cerapedics Inc Allograft Bone Putty 2.5cc 700-025 - [id number] Implanted:Qty: 1 on 05/29/2022 by Yumiko Choi MD at [facility] N/A: Neck Cerapedics Inc [id number] 11/02/2024 700-025 / / [id number] Orthofix Spinal Implants Cage Spinal Cervical 5 Degree Acdf Mini Construx [id number] Titanium 37-7006sp - [id number] Implanted:Qty: 1 on 05/29/2022 by Yumiko Choi MD at [facility] N/A: Neck Orthofix Spinal Implants 08/17/2026 [id number] / / 010 [employer]c Plate 1-Level 14 Mm Cervical 300-0114 - [id number] Implanted:Qty: 1 on 05/29/2022 by Yumiko Choi MD at [facility] N/A: Neck [employer]c 300-0114 / / Z[employer]c Screw Self Drilling Variable 4.0x14mm [id number] - [id number] Implanted:Qty: 4 on 05/29/2022 by Yumiko Choi MD at [facility] N/A: Neck [employer]c [id number] / / [...] AM CDT Narrative 07/03/2024 12:31 PM CDT [facility] Medical Group Cardiology [address] [facility] [address] [id number] [address] [facility] [address] [address] P:[phone] P:[phone] Echocardiographic Report Patient Name: NANCY DENSON L : 1945 Study Date: 07/03/2024 11:36:51 AM Gender: F Tech: [facility] Location: [facility] Provider: GILBERT WHITTAKER Height(Cm): 175 BSA: [...] FINDINGS: Interpretation Site: Exam was interpreted at [facility]. Left Ventricle: Normal left ventricular size. Mild [...] Procedure Note Sarah Painter MD - 07/03/2024 [facility] Medical Group Cardiology [address] [facility] [address], [place] [address] [address] [facility] [address], [place] [address] P:[phone] P:[phone] Echocardiographic Report Patient Name: NANCY DENSON L : 1945 Study Date: 07/03/2024 11:36:51 AM Gender: F Tech: [facility] Location: [place] Ref Provider: GILBERT WHITTAKER Height(Cm): 175 BSA: [...] FINDINGS: Interpretation Site: Exam was interpreted at [facility]. Left Ventricle: Normal left ventricular size. Mild [...] MD 07/03/2024 12:31:19 PM CDT us Gilbert Whittaker MD CV ECHO PROCEDURES F inal [...] Electronically signed by: Sarah García M.D. Rodríguez Marte MD IMG FLUOROSCOPY PROC EDURES Final Result * COLONOSCOPY (10/02/2011 12:00 AM CDT) Anatomical Region Laterality Modality Other Narrative 10/02/2011 12:00 AM CDT Ordered by an unspecified provider. Procedure Note Provider, MD Nitish - 10/02/2011 12:00 AM CDT PROCEDURE REPORT Patient: NANCY DENSON Account: [id number] Room No: : 1945 Patient Type: [facility] Attend.: Hamlet Puente M.D. Admit [...] female. PHYSICIAN Hamlet Puente M.D. INSTRUMENT USED Fujinon video endoscope. MEDICATIONS Per anesthesia. FINDINGS The [...] Postsedation instructions. 2. High fiber diet. 3. [place] Cancer Society Screening recommendations for colorectaldisease. 4. [...] Most Recently Relevant to Health Maintenance Insurance [facility] MEDICARE AET MEDICARE Advance Directives For more information, please contact: [phone] Documents on File Type Date Recorded Patient Tire Mechanic Expl anation Power of Occupational Therapy Program Director 05/11/2022 10:58 AM * Full Code (Latest Code Status on File) Date Activated Date Inactivated Comments 05/29/2022 11:25 AM 05/30/2022 2:00 PM Care Teams Investment Accounting Clerk Relationship Specialty Start Date End Date Dariel Monzon MD [address] [facility] [address] [place], [place] [id number] PCP - General Family Practice 01/08/23 Flaquita Smart MD [address] [place] [address] Obstetrics and Gynecology 10/22/23 Gilbert Whittaker MD [address] [facility] [address], [place] [address] Consulting Physician Cardiology 10/22/23
[2024-08-21 19:50] LABS: Alanine Aminotransferase 22 U/L (6-35); Albumin Level 4.4 g/dL (3.5-5.1); Alkaline Phosphatase 46 U/L (38-126); Anion Gap 7 mmol/L (4-12); Aspartate Amino Transferase 38 U/L (14-36); Bilirubin,Total 0.7 mg/dL (0.2-1.3); Blood Urea Nitrogen 15 mg/dL (7-17); Calcium 9.8 mg/dL (8.4-10.2); Carbon Dioxide 26 mmol/L (22-30); Chloride 106 mmol/L (98-107); Cholesterol 274 mg/dL (0-200); Estimated Glomerular Filt Rate > 60; Glucose 90 mg/dL (65-110); HDL Direct 97 mg/dL; Potassium 4.5 mmol/L (3.4-5.0); Sodium 139 mmol/L (137-145); Total Protein 7.4 g/dL (6.3-8.2); Triglycerides 65 mg/dL (<150)
[2024-08-21 20:01] LABS: LDL Cholesterol Direct 121 mg/dL
[2024-08-21 21:16] LABS: Hemoglobin A1C 5.1 % (<5.7)
== END 2024-08-21 08:51 | disposition home or self-care (01) ==
LOC: ANHGOSHLAB 08:50
PROVIDERS: PCP Family Medicine; Visit Provider Family Medicine
DX: E78.5 Hyperlipidemia, unspecified (principal); R73.9 Hyperglycemia, unspecified; I10 Essential (primary) hypertension
CPT/HCPCS: 36415; 80053; 80061; 83036; 84443

== ENCOUNTER 2024-09-25 10:10 | Outpatient (CLI) | payer MEDICARE, SELFPAY ==
--- NOTE | ~2024-09-25 | CT_ITS ---
EXAM: CT brain wo con - 09/25/2024 10:25 CDT History: 78 years old Female with G25.0 - Essential tremor COMPARISON: None available. PROCEDURE: CT of the head without contrast. Axial, sagittal and coronal reformatted planes were gwendolyn luated. Automatic exposure control was used for this study. FINDINGS: BRAIN PARENCHYMA: No acute hemorrhage. No mass effect or herniation. Stevens-white matter differentiatio n is maintained. Mild chronic volume loss. Scattered hypodensities in subcortical and periventricular white matter, likely representing chronic microvascular ischemic changes in this age group. Atherosc lerotic calcification of the intracranial vessels is noted. VENTRICLES/ EXTRA-AXIAL SPACES: No hydrocephalus or extra-axial fluid collection. EXTRACRANIAL STRUCTURES: No calvarial fracture. Near-complete presentation of right maxillary sinus. Partial opacification of ethmoid sinuses. IMPRESSION: 1. No evidence for acute intracranial hemorrhage or calvarial fracture. 2. Nonobstructive paranasal sinus mucosal disease, as described above. Correlate clinically for acut e sinusitis. Reviewed, dictated and finalized at location A. IMPRESSION: 1. No evidence for acute intracranial hemorrhage or calvarial fracture. 2. Nonobstructive paranasal sinus mucosal disease, as described above. Correla te clinically for acute sinusitis.
--- OUTSIDE RECORDS SUMMARY | 2024-09-25 10:26 | XMS_ITS | Clinical Summary ---
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 Gender Identity Not on file Sexual Orientation Not on file Plan of Treatment Health Maintenance Due Date Last Done Comments Hepatitis C 1963 DTaP, Tdap and Td Vaccines ( 1 - Tdap) 1965 Zoster Vaccines (1 of 2) 1996 Annual Medicare Wellness Visit 12/15/2011 Dexa Scan (General) 12/15/2011 Pneumococcal Vaccine: 50+ Years (2 of 2 - PPSV23) 09/08/2018 09/08/2017 RSV Immunization or 60+ Years (1 - 1-dose 75+ series) 2021 COVID-19 Vaccine (3 - 2023-2 5 season) 2023 05/14/2020, 04/16/2020 Meningococcal B Vaccine Aged Out No l onger eligible based on patient's age to complete this topic Meningococcal Vaccine Aged Out No josias nayan eligible based on patient's age to complete this topic RSV Immunizations Under 20 Months Aged Out No longer eligible b ased on patient's age to complete this topic Insurance MED REPLACE [facility] MEDICARE Care Teams Fur Blender Relationship Specialty Start Date End Date Katelin Li FNP [address] [place] [address] [address] PCP - General Nurse Practitioner Family 09/20/21
--- OUTSIDE RECORDS SUMMARY | 2024-09-25 10:26 | XMS_ITS | Clinical Summary ---
Author Organization [facility] [address] Address [address] [place] [address] Care Team Providers Care Sales Data Analyst Name Role Phone Dariel Monzon MD Primary Care Provider Flaquita Smart MD Unavailable [phone] Gilbert Whittaker MD Unavailable [phone] Allergies Active Allergy Reactions Criticality Noted Date [...] MG TOTAL) BY MOUTH DAILY. 90 tablet 2 09/19/19 25 026 Active metoprolol XL (TOPROL-XL) 25 mg extended release tabletIndication s:Primary hypertension,Pal pitations TAKE 1 TABLET (25 MG TOTAL) BY MOUTH DAILY. 90 tablet 08/09/19 25 025 Discontinued Active Problems Problem Noted [...] Department Care Team Description 07/04/2024 Results Follow-Up [facility] Medical Group Cardiology [address] [facility] [address], [place] [address] Gilbert Whittaker MD Transthoracic Echo (TTE) Complete W Doppler/CF 07/03/2024 11:15 AM CDT Ancillary Procedure [facility] Medical Group Cardiology [address] [facility] [address] [place] [address] Systolic dysfunction; Primary hypertension; MARIE (dyspnea on exertion) 06/26/2024 1:00 PM CDT Office Visit [facility] Obstetrics and Gynecology [facility] Advanced Medicine 13th [place] [address] [place] [address] Pia Crum NP Encounter for routine cancer follow-up (Primary Dx); Endometrial cancer (HCC); Vulvar atrophy from Last 3 Months Immunizations Immunization Administration [...] on file 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 N/A: Neck Cerapedics Inc [id number] 11/02/2024 700-025 / / [id number] Orthofix Spinal Implants Cage Spinal Cervical 5 Degree Acdf Mini Construx [id number] Titanium 37-7006sp - [id number] Implanted:Qty: 1 on 05/29/2022 by Yumiko Choi MD at [facility] N/A: Neck Orthofix Spinal Implants 08/17/2026 37-7006SP / / 010 [employer] Plate 1-Level 14 Mm Cervical 300-0114 - [id number] Implanted:Qty: 1 on 05/29/2022 by Yumiko Choi MD at [facility] N/A: Neck [employer]c 300-0114 / / Zav[employer] Llc Screw Self Drilling Variable 4.0x14mm 301-4014 - [id number] Implanted:Qty: 4 on 05/29/2022 by Yumiko Choi MD at [facility] N/A: Neck [employer] Llc [id number] / / Procedures Procedure Name Priority Date/Time Associated Diagnosis Comments TRANSTHORACIC ECHO (TTE) COMPLETE W DOPPLER/CF WO CONTRAST Routine 07/03/2024 12:22 PM CDT Systolic dysfunction Primary hypertension MARIE (dyspnea on exertion) COLONOSCOPY 10/02/2011 12:00 AM CDT from Last 3 Months or Most Recently Relevant to Health Maintenance Results * TRANSTHORACIC ECHO (TTE) COMPLETE W DOPPLER/CF WO CONTRAST (07/03/2024 12:22 PM CDT) EF Mod BP 54 % CONS SCIMAGE Anatomical Region Laterality Modality Ultrasound 07/03/2024 11:3 6 AM CDT Narrative 07/03/2024 12:31 PM CDT [facility] Medical Group Cardiology [address] [facility] [address] [address] [place] [address] [address], [place] [address] P:[phone] P:[phone] Echocardiographic Report Patient Name: NANCY DENSON L : 1945 Study Date: 07/03/2024 11:36:51 AM Gender: F Tech: [facility] Location: [place] Ref Provider: GILBERT WHITTAKER Height(Cm): 175 BSA: [...] FINDINGS: Interpretation Site: Exam was interpreted at [facility]. Left Ventricle: Normal left ventricular size. Mild [...] Procedure Note Sarah Painter MD - 07/03/2024 [facility] Medical Group Cardiology [address] [facility] [address], [place] [address] [address] [facility] [address], [place] [address] P:[phone] P:[phone] Echocardiographic Report Patient Name: NANCY DENSON L : 1945 Study Date: 07/03/2024 11:36:51 AM Gender: F Tech: ANDRE Location: [facility] Provider: GLIBERT WHITTAKER Height(Cm): 175 BSA: 1.87 Weight(Kg): 71.7 [...] FINDINGS: Interpretation Site: Exam was interpreted at [facility]. Left Ventricle: Normal left ventricular size. Mild [...] CV ECHO PROCEDURES F inal Result * COLONOSCOPY (10/02/2011 12:00 AM CDT) Anatomical Region Laterality Modality Other Narrative 10/02/2011 12:00 AM CDT Ordered by an unspecified provider. Procedure Note Provider, MD Nitish - 10/02/2011 12:00 AM CDT PROCEDURE REPORT Patient: NANCY DENSON Account: [id number] Room No: : 1945 Patient Type: [facility] Attend.: Hamlet Puente M.D. Admit Date: 10/03/2011 [...] female. PHYSICIAN Hamlet Puente M.D. INSTRUMENT USED Tower Cloud video endoscope. MEDICATIONS Per anesthesia. FINDINGS The [...] Postsedation instructions. 2. High fiber diet. 3. [place] Cancer Society Screening recommendations for colorectaldisease. 4. [...] Most Recently Relevant to Health Maintenance Insurance [facility] MEDICARE AETNA MEDICARE Advance Directives For more information, please contact: [phone] Documents on File Type Date Recorded Patient Retail Support Specialist Expl anation Power of Mica Layer 05/11/2022 10:58 AM * Full Code (Latest Code Status on File) Date Activated Date Inactivated Comments 05/29/2022 11:25 AM 05/30/2022 2:00 PM Care Teams Sales Data Analyst Relationship Specialty Start Date End Date Dariel Monzon MD [facility] [address] [place] [address] PCP - General Family Practice 01/08/23 Flaquita Smart MD [address] [facility] 100 [place] [address] Obstetrics and Gynecology 10/22/23 Gilbert Whittaker MD [address] [facility] [address] [address] Consulting Physician Cardiology 10/22/23
--- OUTSIDE RECORDS SUMMARY | 2024-09-25 10:26 | XMS_ITS ---
Author Organization [facility] [address] Address [address] [place] [address] Care Team Providers Care Medical Receptionist Medical Assistant Name Role Phone Dariel Monzon MD Primary Care Provider Flaquita Smart MD Unavailable [phone] Markel Whittaker MD Unavailable [phone] Active Problems Problem Noted Date Diagnosed Date [...]
--- OUTSIDE RECORDS SUMMARY | 2024-09-25 10:26 | XMS_ITS | Referral Summary ---
Author Organization [facility] [address] [facility] [address] Address [address] [place] [address] Care Team Providers Care Primary Health Care Nurse Name Role Phone Dariel Monzon MD Primary Care Provider Flaquita Smart MD Unavailable [phone] Gilbert Whittaker MD Unavailable [phone] Encounters Date Type Department Care Team Description 07/04/2024 Results Follow-Up [facility] Medical Group Cardiology [address] [facility] [address] [place] [phone] Gilbert Whittaker MD Transthoracic Echo (TTE) Complete W Doppler/CF 07/03/2024 11:15 AM CDT Ancillary Procedure [facility] Medical Group Cardiology [address] [place] [address] Systolic dysfunction; Primary hypertension; MARIE (dyspnea on exertion) 06/26/2024 1:00 PM CDT Office Visit [facility] Obstetrics and Gynecology [address] [place] [address] Advanced Medicine 13th [place] [address] Pia Crum NP Encounter for routine cancer follow-up (Primary Dx); Endometrial cancer (HCC); Vulvar atrophy from Last 3 Months Allergies Active Allergy [...] on file 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 Gender Identity Not on file Sexual Orientation [...] on file Medical Devices Implanted Type Area Cherry Dipper Device Identifier Shelf Expiration Date Model / Serial / Lot [employer] Allograft Bone Putty 2.5cc 700- - [id number] Implanted:Qty: 1 on 05/29/2022 by Yumiko Choi MD at [facility] N/A: Neck Cerapedics Inc [id number] 11/02/2024-025 / / [id number] Orthofix Spinal Implants Cage Spinal Cervical 5 Degree Acdf Mini Construx [id number] Titanium 37-7006sp - [id number] Implanted:Qty: 1 on 05/29/2022 by Yumiko hCoi MD at [facility] N/A: Neck Orthofix Spinal Implants 08/17/2026 37-7006SP / / 010 [employer]c Plate 1-Level 14 Mm Cervical [id number] - [id number] Implanted:Qty: 1 on 05/29/2022 by Yumiko Choi MD at [facility] N/A: Neck [employer]c 300-0114 / / Zav[employer] Llc Screw Self Drilling Variable 4.0x14mm [id number] - [id number] Implanted:Qty: 4 on 05/29/2022 by Yumiko Choi MD at [facility] N/A: Neck [employer]c [id number] / [...] AM CDT Narrative 07/03/2024 12:31 PM CDT [facility] Medical Group Cardiology [address] [facility] [address], [place] [address] [address] [facility] [address], [place] [address] [phone] P:[phone] Echocardiographic Report Patient Name: NANCY DENSON L : 1945 Study Date: 07/03/2024 11:36:51 AM Gender: F Tech: ANDRE Location: [place] Ref Provider: GILBERT WHITTAKER Height(Cm): 175 BSA: [...] FINDINGS: Interpretation Site: Exam was interpreted at [facility]. Left Ventricle: Normal left ventricular size. [...] Procedure Note Sarah Painter MD - 07/03/2024 [facility] Medical Group Cardiology [address], [place] [address] [address] [facility] [address], [place] [address] P:[phone] P:[phone] Echocardiographic Report Patient Name: NANCY DENSON L : 1945 Study Date: 07/03/2024 11:36:51 AM Gender: F Tech: [facility] Location: [facility] Provider: GILBERT WHITTAKER Height(Cm): 175 BSA: 1.87 [...] FINDINGS: Interpretation Site: Exam was interpreted at [facility]. Left Ventricle: Normal left ventricular size. [...] CDT PROCEDURE REPORT Patient: NANCY DENSON Account: [id number] Room No: : 1945 Patient Type: [facility] Attend.: Hamlet Puente M.D. Admit Date: [...] female. PHYSICIAN Hamlet Puente M.D. INSTRUMENT USED Lalina video endoscope. MEDICATIONS Per anesthesia. FINDINGS The [...] Postsedation instructions. 2. High fiber diet. 3. [place] Cancer Society Screening recommendations for colorectaldisease. 4. [...] Most Recently Relevant to Health Maintenance Insurance [facility] MEDICARE [facility] Address: [place] [id number] [place] [id number] [facility] MEDICARE Advance Directives For more information, please contact: [phone] Documents on File Type Date Recorded Patient Clinical Operations Leader Expl anation Power of Head Banquet Waiter/Waitress 05/11/2022 10:58 AM * Full Code (Latest Code Status on File) Date Activated Date Inactivated Comments 05/29/2022 11:25 AM 05/30/2022 2:00 PM Care Teams Primary Health Care Nurse Relationship Specialty Start Date End Date Dariel Monzon MD [address] [place] [address] [address] [place] [place] [id number] PCP - General Family Practice 01/08/23 Flaquita Smart MD [address] [place] [address] Obstetrics and Gynecology 10/22/23 Gilbert Whittaker MD [address] [place] [id number] Consulting Physician Cardiology 10/22/23
== END 2024-09-25 10:11 | disposition home or self-care (01) ==
PROVIDERS: PCP Family Medicine; Visit Provider Nurse Practitioner Family
DX: J34.89 Other specified disorders of nose and nasal sinuses (principal); G25.0 Essential tremor
CPT/HCPCS: 70450

== ENCOUNTER 2024-10-16 00:57 | Day surgery (SDC) | payer MEDICARE, SELFPAY ==
[2024-09-29 14:17] VITALS: BMI 22.9
--- OUTSIDE RECORDS SUMMARY | 2024-10-16 01:00 | XMS_ITS ---
Author Organization [facility] [address] Address [address] [place] [address] Care Team Providers Care Ict Support Engineer Name Role Phone Dariel Monzon MD Primary Care Provider Flaquita Smart MD Unavailable Markel Whittaker MD Unavailable [phone] Active Problems Problem Noted Date Diagnosed Date [...]
--- OUTSIDE RECORDS SUMMARY | 2024-10-16 01:00 | XMS_ITS | Clinical Summary ---
Author Organization 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 Gender Identity Not on file Sexual Orientation [...] 1996 Well Visit 65+ 12/15/2011 Covid-19 Vaccine (2023-2 5 season) 2023 02/19/2021, 05/14/2020, 04/16/2020 DTaP/Tdap/Td Vaccine (3 - Td or Tdap) 08/13/2024 08/13/2014, 09/18/2011 Fall Risk Assessment 10/07/2024 10/08/2023 Influenza Vaccine (#1) 2024 11/27/2014, 2011 Colon Cancer Screening-Colonoscopy Discontinued 2011 Pneumococcal vaccine 65+ Completed 019, 09/08/2017, 11/13/2012 Medical Devices Implanted Type Area Special Order Jeweler Device Identifier Shelf Expiration Date Model / Serial / Lot Cerapedics Inc Allograft Bone Putty 2.5cc 700-025 - [id number] Implanted:Qty: 1 on 05/29/2022 by Yumiko Choi MD at [facility] N/A: Neck Cerapedics Inc [id number] 11/02/2024 700-025 / / [id number] Orthofix Spinal Implants Cage Spinal Cervical 5 Degree Acdf Mini Construx [id number] Titanium 37-7006sp - [id number] Implanted:Qty: 1 on 05/29/2022 by Yumiko Choi MD at [facility] N/A: Neck Orthofix Spinal Implants 08/17/2026 [id number] / / [id number] Zavation Llc Plate 1-Level 14 Mm Cervical 300-0114 - [id number] Implanted:Qty: 1 on 05/29/2022 by Yumiko Choi MD at [facility] N/A: Neck Zav[employer] Llc 300-0114 / / Zav[employer]c Screw Self Drilling Variable 4.0x14mm [id number] - [id number] Implanted:Qty: 4 on 05/29/2022 by Yumiko Choi MD at [facility] N/A: Neck Zav[employer]c [id number] / / [...] CDT PROCEDURE REPORT Patient: NANCY DENSON Account: [id number] Room No: : 1945 Patient Type: [facility] Attend.: Hamlet Puente M.D. Admit Date: 10/03/2011 [...] female. PHYSICIAN Hamlet Puente M.D. INSTRUMENT USED Pharmapod video endoscope. MEDICATIONS Per anesthesia. FINDINGS The [...] Postsedation instructions. 2. High fiber diet. 3. [place] [employer] Screening recommendations for colorectaldisease. 4. [...] Advance Directives For more information, please contact: [phone] Documents on File Type Date Recorded Patient Box Blank Machine Operator Helper Expl anation Power of Timber Sizer 05/11/2022 10:58 AM * Full Code (Latest Code Status on File) Date Activated Date Inactivated Comments 05/29/2022 11:25 AM 05/30/2022 2:00 PM Care Teams Senior Sql Server Developer Relationship Specialty Start Date End Date Dariel Monzon MD [address] [facility] [address] [place] [address] PCP - General Family Practice 01/08/23 Flaquita Smart MD [address] [facility] [address] [place] [address] Obstetrics and Gynecology 10/22/23 Markel Whittaker MD [address] [facility] [address], [place] [address] Consulting Physician Cardiology 10/22/23
--- OUTSIDE RECORDS SUMMARY | 2024-10-16 01:00 | XMS_ITS | Clinical Summary ---
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
[2024-10-16 07:47] VITALS: BP 155/76; PULSE 71; RESP 18; TEMP 36.6; O2SAT 99
--- NOTE | 2024-10-16 07:55 | WPDANESEPPF ---
Anes - Initial Pre Proc Eval Procedure: Operation Date: 10/16/24 09:00 Proposed Procedures p EGD & Screening Colonoscopy - Derrek Buitrago MD Date/Time: 10/16/24 07:55 Surgeon: Derrek Buitrago MD Pre Op Diagnosis: Esophageal web,Dysphagia, unspecified, screening Patient Data Age: 78 Gender: F Height: 1.75 m Weight: 70.6 kg Last Vital Signs Temp 36.6 C 10/16/24 07:47 Pulse 71 10/16/24 07:47 Resp 18 10/16/24 07:47 BP 155/76 H 10/16/24 07:47 Pulse Ox 99 10/16/24 07:47 O2 Del Method Room Air 10/16/24 07:47 Allergies Allergy/AdvReac Type Severity Reaction Status Date / Time lisinopril Allergy Intermediate Swelling Verified 10/16/24 07:44 of Lip/Tongue/Throat amlodipine AdvReac Intermediate Other Verified 10/16/24 07:44 losartan AdvReac Intermediate Other Verified 10/16/24 07:44 alendronate sodium AdvReac Unknown severe Verified 10/16/24 07:44 body aches lovastatin AdvReac Unknown Confusion Verified 10/16/24 07:44 Home Medications ?Medication ?Instructions ?Recorded ?Confirmed ?Type aspirin 81 mg tablet 81 mg PO DAILY 06/08/21 10/16/24 History ascorbic acid (vitamin C) 1,000 mg 1 g PO DAILY 11/01/21 10/16/24 History capsule biotin 10,000 mcg capsule 10,000 mcg PO DAILY 11/01/21 10/16/24 History cholecalciferol (vitamin D3) 125 125 mcg PO DAILY 11/01/21 09/29/24 History mcg (5,000 unit) capsule coenzyme Q10 100 mg capsule 400 mg PO DAILY 11/01/21 10/16/24 History (CoQ-10) magnesium oxide 250 mg PO DAILY 11/01/21 10/16/24 History vitamin E (dl, acetate) 180 mg 180 mg PO BID 11/01/21 10/16/24 History (400 unit) capsule metoprolol succinate 25 mg 25 mg PO DAILY 12/21/22 10/16/24 History tablet,extended release 24 hr nifedipine 90 mg tablet,extended 90 mg PO DAILY 05/24/23 10/16/24 History release cyanocobalamin (vitamin B-12) 1,000 mcg PO DAILY 08/16/23 10/16/24 History 1,000 mcg capsule zinc sulfate 25 mg zinc (110 mg) 25 mg PO DAILY 06/17/24 10/16/24 History tablet (Orazinc) omeprazole 40 mg capsule,delayed See Rx Instructions .Route 09/18/24 10/16/24 Rx release .COMPLEX #90 caps TUMERIC 500 mg PO TID 09/29/24 10/16/24 History Patient hx anesthesia problems: none Family hx anesthesia problems: none Results Review: All pre-operative results and documents have been reviewed as part of the pre-operative evaluation. [facility] Past Medical History Medical History Endometrial adenocarcinoma (~10/2023) Benign essential tremor Cervical spondylosis with myelopathy (~05/2022) Anxiety Colonoscopy refused Hyperlipidemia History of shingles Osteopenia Insomnia Essential (primary) hypertension Surgical History Surgical History H/O: hysterectomy (~10/2023) History of gynecologic surgery Hscope D&C 08/28/2023 History of esophageal dilatation (~10/2022) Status post cervical arthrodesis (~05/2022) ACDF C3-C4 History of parathyroidectomy (~01/2013) hx of hyperparathyroid Family History Family History Mother Hypertension Father Family history of heart disease in male family member before age 55 Social History Social History Social History: Lives with . Has 2 children and 4 grandchildren. Caffeine- coffee daily Years smoked: 2 Smoking status: Former smoker Tobacco type: cigarettes Second hand tobacco smoke exposure: No Smoking end date: 03/05/73 Alcohol intake: current Drinks per week: 3 Substance use: never Substance use type: does not use Do You Feel Safe in your Home?: Yes Lack of Transportation: No Lack of Food: Never True Current Housing: I Have Housing Concerned About Future Housing: No Difficulty Paying Gas/Electric Bills: No Difficulty Paying for Meds: No Currently Unemployed: No Education: High School Diploma/GED Difficulty w/ Childcare or Family Care: No Living arrangements: with family Occupation/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 Gender identity (if verbalized by the patient): Female Sexual Orientation (if Verbalized by the Patient): Straight or Heterosexual Spiritual care concerns: No Agree to blood products: Yes Anes - Eval Final PreProcedure Day of Procedure 10/16/24 07:55 Patient weight: normal Heart: regular rate and rhythm Lungs: clear to auscultation and normal air movement Airway: Mallampati scale class II Neurological: alert and oriented Last oral intake: >/= 8 hours ASA classification: III Emergent: no Anesthetic plan: proceed Anesthesia type and monitoring: general GIVS and standard monitoring Results Review: All pre-operative results and documents have been reviewed as part of the pre-operative evaluation. Informed Consent: The patient's anesthetic plan and its attendant risks and benefits were discussed with the patient/family/POA. Questions were solicited and answers provided to the satisfaction of the patient/family/POA.
[2024-10-16] MEDS: LACTATED RINGERS 1,000 ML 150 ML IV CONT (07:56)
--- NOTE | 2024-10-16 08:31 | PM.IMHP ---
H&P: HPI History of Present Illness Date/Time: 10/16/24 08:31 Chief Complaint: Dysphagia-screening colonoscopy Narrative: the patient has intermittent dysphagia to solid foods. Of note, in 2023 a Schatzki ring was found and dilated with an 15-18 balloon; in addition, she comes referred for screening colonoscopy. The last 1 was done 12 years ago. Review of Systems Review of Systems: All systems reviewed & are unremarkable except as noted in HPI and below PMFSH Past Medical History Medical History Endometrial adenocarcinoma (~10/2023) Benign essential tremor Cervical spondylosis with myelopathy (~05/2022) Anxiety Colonoscopy refused Hyperlipidemia History of shingles Osteopenia Insomnia Essential (primary) hypertension Surgical History Surgical History H/O: hysterectomy (~10/2023) History of gynecologic surgery Hscope D&C 08/28/2023 History of esophageal dilatation (~10/2022) Status post cervical arthrodesis (~05/2022) ACDF C3-C4 History of parathyroidectomy (~01/2013) hx of hyperparathyroid Family History Family History Mother Hypertension Father Family history of heart disease in male family member before age 55 Social History Social History Social History: Lives with . Has 2 children and 4 grandchildren. Caffeine- coffee daily Years smoked: 2 Smoking status: Former smoker Tobacco type: cigarettes Second hand tobacco smoke exposure: No Smoking end date: 03/05/73 Alcohol intake: current Drinks per week: 3 Substance use: never Substance use type: does not use Do You Feel Safe in your Home?: Yes Lack of Transportation: No Lack of Food: Never True Current Housing: I Have Housing Concerned About Future Housing: No Difficulty Paying Gas/Electric Bills: No Difficulty Paying for Meds: No Currently Unemployed: No Education: High School Diploma/GED Difficulty w/ Childcare or Family Care: No Living arrangements: with family Occupation/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 Gender identity (if verbalized by the patient): Female Sexual Orientation (if Verbalized by the Patient): Straight or Heterosexual Spiritual care concerns: No Agree to blood products: Yes Meds Home Medications and Allergies Home Medications ?Medication ?Instructions ?Recorded ?Confirmed ?Type aspirin 81 mg tablet 81 mg PO DAILY 06/08/21 10/16/24 History ascorbic acid (vitamin C) 1,000 mg 1 g PO DAILY 11/01/21 10/16/24 History capsule biotin 10,000 mcg capsule 10,000 mcg PO DAILY 11/01/21 10/16/24 History cholecalciferol (vitamin D3) 125 125 mcg PO DAILY 11/01/21 09/29/24 History mcg (5,000 unit) capsule coenzyme Q10 100 mg capsule 400 mg PO DAILY 11/01/21 10/16/24 History (CoQ-10) magnesium oxide 250 mg PO DAILY 11/01/21 10/16/24 History vitamin E (dl, acetate) 180 mg 180 mg PO BID 11/01/21 10/16/24 History (400 unit) capsule metoprolol succinate 25 mg 25 mg PO DAILY 12/21/22 10/16/24 History tablet,extended release 24 hr nifedipine 90 mg tablet,extended 90 mg PO DAILY 05/24/23 10/16/24 History release cyanocobalamin (vitamin B-12) 1,000 mcg PO DAILY 08/16/23 10/16/24 History 1,000 mcg capsule zinc sulfate 25 mg zinc (110 mg) 25 mg PO DAILY 06/17/24 10/16/24 History tablet (Orazinc) omeprazole 40 mg capsule,delayed See Rx Instructions .Route 09/18/24 10/16/24 Rx release .COMPLEX #90 caps TUMERIC 500 mg PO TID 09/29/24 10/16/24 History Allergies Allergy/AdvReac Type Severity Reaction Status Date / Time lisinopril Allergy Intermediate Swelling Verified 10/16/24 07:44 of Lip/Tongue/Throat amlodipine AdvReac Intermediate Other Verified 10/16/24 07:44 losartan AdvReac Intermediate Other Verified 10/16/24 07:44 alendronate sodium AdvReac Unknown severe Verified 10/16/24 07:44 body aches lovastatin AdvReac Unknown Confusion Verified 10/16/24 07:44 Vital Signs Vital Signs - 24 hr 10/16/24 07:47 Temperature 98 F Pulse Rate 71 Respiratory Rate 18 Blood Pressure 155/76 H Pulse Oximetry 99 Oxygen Delivery Room Air Exam Const: General: cooperative and healthy appearing Resp: Effort & Inspection: normal respiratory effort and able to speak in complete sentences Auscultation: clear to auscultation bilaterally Cardio: Rate: regular rate Rhythm: regular rhythm GI: Inspection: normal to inspection GI Palp: No No hepatosplenomegaly present Auscultation: normal bowel sounds Rectal Exam: deferred Skin: General skin exam: normal color Psych: Appearance: grossly normal Mental Status: mental status grossly normal Assessment and Plan Assessment and plan (1) Dysphagia: Qualifiers: Dysphagia type: unspecified Qualified Code(s): R13.10 - Dysphagia, unspecified Code(s): R13.10 - Dysphagia, unspecified Status: Acute Assessment and Plan: The patient is deemed a good candidate for the procedures. Consent signed. Will proceed. (2) Encounter for screening colonoscopy: Code(s): Z12.11 - Encounter for screening for malignant neoplasm of colon Status: Acute
--- NOTE | 2024-10-16 09:00 | SUR.OPER ---
EGD ended at 854, Colonoscopy started at 900.
[2024-10-16 09:17] VITALS: BP 118/63; PULSE 57; RESP 26; O2SAT 100
[2024-10-16 09:27] VITALS: BP 114/68; PULSE 56; RESP 15; O2SAT 98
[2024-10-16 09:37] VITALS: BP 117/67; PULSE 58; RESP 18; O2SAT 98
== END 2024-10-16 09:48 | disposition home or self-care (01) ==
PROVIDERS: PCP Family Medicine; Referring Provider Nurse Practitioner Family; Visit Provider Internal Medicine Gastroenterology
PROC: 0DJ08ZZ Inspection of Upper Intestinal Tract, Via Natural or Artificial Opening Endoscopic (ICD-10-PCS; CPT 45378; principal; 2024-10-16 09:00)
DX: Z12.11 Encounter for screening for malignant neoplasm of colon (principal); K22.2 Esophageal obstruction; E78.5 Hyperlipidemia, unspecified; I10 Essential (primary) hypertension; G25.0 Essential tremor; F41.9 Anxiety disorder, unspecified; G47.00 Insomnia, unspecified; M47.12 Other spondylosis with myelopathy, cervical region; M85.88 Other specified disorders of bone density and structure, other site; Z79.82 Long term (current) use of aspirin; Z98.890 Other specified postprocedural states; Z98.1 Arthrodesis status; Z87.891 Personal history of nicotine dependence; Z87.19 Personal history of other diseases of the digestive system; Z85.42 Personal history of malignant neoplasm of other parts of uterus; Z82.49 Family history of ischemic heart disease and other diseases of the circulatory system
CPT/HCPCS: 43249; G0105; C1726; J2003; J2704; J7120

== ENCOUNTER 2025-01-27 14:43 | Outpatient (CLI) | payer MEDICARE, SELFPAY ==
--- NOTE | ~2025-01-27 | MR_ITS ---
EXAMINATION: MR cervical spine wo con DATE: 01/27/2025 15:43 INDICATION: Neck pain with myelopathy. History of C3-4 disc surgery with anterior fixation hardware. TECHNIQUE: Magnetic resonance imaging (MRI) of the cervical spine was performed without intravenous contrast. Sequences included sagittal T2-weighted FSE, sagittal T2-weighted FS FSE, sagittal T1-weighted FSE, axial MERGE, and axial T2-weighted FSE. COMPARISON: C-spine x-ray dated 05/18/2023. FINDINGS: No acute bony lesions out cervical vertebrae. Strictures of the foramen magnum are normal in the sagittal projection. At C2-3 level, no focal disc lesions. Visualization at C3-4 level is significantly compromised by artifacts from hardware from prior surgery. At C4-5 level, degenerative disc changes are noted with minimal anterolisthesis. Compromise of both neural foramina and mild compromise of thecal sac in the midline are normal. At C5-6 level, significant degenerative disc disease with bulging annulus is noted causing significant compromise of thecal sac with AP diameter measuring 6.5 mm. At C6-7 levels, mild compromise of thecal sac and neural foramen due to degenerative disc disease. C7-T1 disc is normal. Cervical spinal cord shows no focal lesions. IMPRESSION: 1. No acute bony lesions are cervical vertebrae. Surgical changes at C3-4 disc with anterior hardware compromising the visualization at this level. 2. Significant degenerative disc changes predominantly at C4-5, C5-6 levels as described above in detail. 3. Cervical spinal cord shows no focal lesions. Reviewed, dictated and finalized at location T. LE CUTTER OPERATOR
--- OUTSIDE RECORDS SUMMARY | 2025-01-27 16:30 | XMS_ITS | Clinical Summary ---
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 Gender Identity Not on file Sexual Orientation Not on file Plan of Treatment Health Maintenance Due Date Last Done Comments Hepatitis C 1963 DTaP, Tdap and Td Vaccines ( 1 - Tdap) 1965 Zoster Vaccines (1 of 2) 1996 Annual Medicare Wellness Visit 12/15/2011 Dexa Scan (General) 12/15/2011 Pneumococcal Vaccine: 50+ Years (2 of 2 - PCV20 or PCV21) 09/08/2018 09/08/2017 RSV Immunization or 60+ Years (1 - 1-dose 75+ series) 2021 COVID-19 Vaccine (3 - 2024-2 6 season) 2024 05/14/2020, 04/16/2020 Influenza Adult (#1) 2024 Hepatitis A Vaccines Aged Out No long er eligible based on patient's age to complete this topic Meningococcal B Vaccine Aged Out No l onger eligible based on patient's age to complete this topic Meningococcal Vaccine Aged Out No josias nayan eligible based on patient's age to complete this topic RSV Immunizations Under 20 Months Aged Out No longer eligible b ased on patient's age to complete this topic Insurance MED REPLACE [facility] MEDICARE Care Teams Research And Development Scientist Relationship Specialty Start Date End Date Katelin Li FNP [address] [place] [address] [address] [place] [address] PCP - General Nurse Practitioner Family 09/20/21
--- OUTSIDE RECORDS SUMMARY | 2025-01-27 16:30 | XMS_ITS ---
Author Organization [facility] [address] Address [address] [place] [address] Care Team Providers Care Supervisor Rough End Name Role Phone Dariel Monzon MD Primary Care Provider Flaquita Smart MD Unavailable [phone] Markel Whittaker MD Unavailable [phone] Active Problems Problem Noted Date Diagnosed Date [...]
--- OUTSIDE RECORDS SUMMARY | 2025-01-27 16:30 | XMS_ITS | Clinical Summary ---
Author Organization [facility] [address] Address [address] [place] [address] Care Team Providers Care Lay Midwife Name Role Phone Dariel Monzon MD Primary Care Provider Flaquita Smart MD Unavailable [phone] Markel Whittaker MD Unavailable [phone] Allergies Active Allergy Reactions Criticality Noted Date Comments Alendronate Other (See comments) Low 04/18/2021 Severe body aches Amlodipine Other (See comments) Low 09/26/2023 Tingling sensation Lisinopril Angioedema High 04/18/2021 Losartan Other (See comments) Low 09/26/2023 Pt unsure of reaction Lovastatin Other (See comments) Low 04/18/2021 Confusion Medications cyanocobalamin (Vitamin B-12) 1,000 mcg tabletIndications :Prevention of Vitamin B12 Deficiency Take 1 tablet (1,000 mcg total) by mouth daily Time of day varies Active pyridoxine (VITAMIN B-6) 100 mg tabletIndications :supplement Take 1 tablet (100 mg total) by mouth daily Time of day varies Active biotin 10,000 mcg capsuleIndication s:supplement Take 1 capsule (10,000 mcg total) by mouth daily Time of day varies Active cholecalciferol (VITAMIN D-3) 5,000 unit tablet Take 1 tablet (5,000 Units total) by mouth daily Active coenzyme Q10 200 mg capsuleIndication s:supplement Take 1 capsule (200 mg total) by mouth daily Time of day varies Active vitamin E (AQUASOL E) 1,000 unit capsule Take 1 capsule (1,000 Units total) by mouth daily Time of day varies Active calcium carbonate/vitamin D3 (CALCIUM 600 + D,3, ORAL)Indications: supplement Take 1 tablet by mouth daily Time of day varies Active ascorbic acid, vitamin C, (VITAMIN C) 1,000 mg CR tabletIndications :supplement Take 1 tablet (1,000 mg total) by mouth daily Time of day varies Active turmeric root extract 500 mg capsuleIndication s:supplement Take 1 capsule by mouth daily Time of day varies Active zinc 50 mg tabletIndications :supplement Take 1 tablet by mouth daily Time of day varies Active omeprazole (PriLOSEC) 20 mg capsuleIndication s:Treatment of Non-Bleeding Gastric Disorder Take 1 capsule (20 mg total) by mouth daily Time of day varies 3 Active aspirin 81 mg enteric coated tabletIndications :heart health Take 1 tablet (81 mg total) by mouth daily Time of day varies Active magnesium glycinate 100 mg tabletIndications :supplement Take 1 tablet/capsul e by mouth daily Time of day varies Active NIFEdipine (NIFEdipine CC) 90 mg 24 hr tabletIndications :Primary hypertension TAKE 1 TABLET BY MOUTH EVERY DAY 90 tablet 3 5 Active triamcinolone (KENALOG) 0.1 % ointment Thin film to affected vulva qHS for one week, then twice weekly prn. 30 g 1 5 Active metoprolol XL (TOPROL-XL) 25 mg extended release tabletIndications :Primary hypertension,Palp itations TAKE 1 TABLET (25 MG TOTAL) BY MOUTH DAILY. 90 tablet 2 5 09/19/19 26 Active Active Problems Problem Noted Date Diagnosed [...] Encounters Date Type Department Care Team Description 12/29/2024 1:00 PM CDT Office Visit [facility] Medicine Obstetrics and Gynecology [address] 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 Gender Identity Not on file Sexual Orientation Not on file Obstetrics History Para Term AB IAB SAB Ectopic Multiple Livin g Live Births 2 1 1 2 Date Outcome GA Total Labor Labor/2nd/3rd Weight Sex Type Anes PTL Noris A1 A5 Name Clin SAB Last Filed Vital Signs Vital Sign Reading Time Taken Comments Blood Pressure 160/85 12/29/2024 1:09 PM CDT Pulse 89 12/29/2024 1:09 PM CDT Temperature 36.7 C (98 F) 12/29/2024 1:09 PM CDT Respiratory Rate 12 12/29/2024 1:09 PM CDT Oxygen Saturation 98% 12/29/2024 1:09 PM CDT Inhaled Oxygen Concentration - - Weight 73.5 kg (162 lb 1.6 oz) 12/29/2024 1:09 P M CDT Height 176.5 cm (5' 9.5) 06/16/2024 9:27 AM CDT Body Mass Index 23.59 06/16/2024 9:27 AM CDT Plan of Treatment Health Maintenance Due Date Last Done Comments Depression Screening 1945 Hepatitis C Screening 1945 Osteoporosis Screening-Bone Density Scan 1945 Hepatitis B Screening 1964 Zoster Vaccine (1 of 2) 1996 Well Visit 65+ 12/15/2011 DTaP/Tdap/Td Vaccine (3 - Td or Tdap) 08/13/2024 08/13/2014, 09/18/2011 Fall Risk Assessment 10/07/2024 10/08/2023 Covid-19 Vaccine (4 - 2024-2 6 season) 2024 02/19/2021, 05/14/2020, 04/16/2020 Influenza Vaccine (#1) 2024 5, 10/09/2014, 12/28/2011 Colon Cancer Screening-Colonoscopy Discontinued 2011 Pneumococcal vaccine 65+ Completed 019, 09/08/2017, 11/13/2012 Medical Devices Implanted Type Area Director Mba Device Identifier Shelf Expiration Date Model / Serial / Lot Cer[employer] Inc Allograft Bone Putty 2.5cc 700-025 - [id number] Implanted:Qty: 1 on 05/29/2022 by Yumiko Choi MD at [facility] N/A: Neck [employer] Inc [id number] 11/02/2024 700-025 / / [id number] Orth[employer]ix Spinal Implants Cage Spinal Cervical 5 Degree Acdf Mini Construx [id number] Titanium 37-7006sp - [id number] Implanted:Qty: 1 on 05/29/2022 by Yumiko Choi MD at [facility] N/A: Neck Orth[employer]ix Spinal Implants 08/17/2026 [id number] / / [id number] [employer] Plate 1-Level 14 Mm Cervical 300-0114 - [id number] Implanted:Qty: 1 on 05/29/2022 by Yumiko Choi MD at [facility] N/A: Neck [employer] 300-0114 / / [employer] Screw Self Drilling Variable 4.0x14mm [id number] - [id number] Implanted:Qty: 4 on 05/29/2022 by Yumiko Choi MD at [facility] N/A: Neck ZaAcceptd [id number] / / Procedures Procedure Name Priority [...] CDT PROCEDURE REPORT Patient: NANCY DENSON Account: [id number] Room No: : 1945 Patient Type: SDS [...] female. PHYSICIAN Hamlet Puente M.D. INSTRUMENT USED ComCam video endoscope. MEDICATIONS Per anesthesia. FINDINGS The [...] Postsedation instructions. 2. High fiber diet. 3. [place] [employer] Screening recommendations for colorectaldisease. 4. [...] Relevant to Health Maintenance Insurance [employer] MEDICARE AET MEDICARE Advance Directives For more information, please contact: [phone] Documents on File Type Date Recorded Patient Director Mission Expl anation Power of Flow Machine Operator 05/11/2022 10:58 AM * Full Code (Latest Code Status on File) Date Activated Date Inactivated Comments 05/29/2022 11:25 AM 05/30/2022 2:00 PM Care Teams Lay Midwife Relationship Specialty Start Date End Date Dariel Monzon MD [address] [facility] [address] [place] [address] PCP - General Family Practice 01/08/23 Flaquita Smart MD [address] [place] [address] Obstetrics and Gynecology 10/22/23 Markel Whittaker MD [address] [facility] [address] [place] [address] Consulting Physician Cardiology 10/22/23
== END 2025-01-27 14:44 | disposition home or self-care (01) ==
PROVIDERS: PCP Family Medicine; Visit Provider Psychiatry & Neurology Neurology
DX: G47.00 Insomnia, unspecified (principal); R26.89 Other abnormalities of gait and mobility; M47.12 Other spondylosis with myelopathy, cervical region; G25.0 Essential tremor; Z85.42 Personal history of malignant neoplasm of other parts of uterus; Z98.1 Arthrodesis status; Z86.39 Personal history of other endocrine, nutritional and metabolic disease
CPT/HCPCS: 72141

== ENCOUNTER 2025-02-09 08:01 | Outpatient (CLI) | payer MEDICARE, SELFPAY ==
--- NOTE | ~2025-02-09 | US_ITS ---
EXAMINATION: US thyroid DATE: 02/09/2025 08:12 INDICATION: Nodules TECHNIQUE: Multiple ultrasound images of the thyroid were obtained. COMPARISON: February 14, 2024 FINDINGS: The right thyroid lobe measures 4.6 x 1.5 x 1.4 cm. The left thyroid lobe measures 4.5 x 1.2 x 2.0 cm. Small bilateral nodules, TR 3-4 again noted with the largest measuring 10 mm in the left lobe. This nodule measures approximate 7 mm on the previous exam. The thyroid appears slightly heterogeneous in echotexture throughout. The thyroid is moderately hypervascular appearance. IMPRESSION: 1. Slight increase in size of TR 3-4 nodule. Correlate with follow-up thyroid ultrasound in 12 months recommended date of follow-up exam on or about February 092025. 2. Somewhat hyperemic appearance of the thyroid which could be associated with thyroiditis. Reviewed, dictated and finalized at location A. OMER CARE REPRESENTATIVE IMPRESSION: 1. Slight increase in size of TR 3-4 nodule. Correlate with follow-up thyroid u ltrasound in 12 months recommended date of follow-up exam on or about February 092025. 2. Somewhat hyperemic appearance of the thyroid which could be associated with thyroiditis.
== END 2025-02-09 08:02 | disposition home or self-care (01) ==
LOC: GOSHIMG 08:01
PROVIDERS: PCP Internal Medicine Endocrinology, Diabetes & Metabolism; Visit Provider Internal Medicine Endocrinology, Diabetes & Metabolism
DX: E04.1 Nontoxic single thyroid nodule (principal)
CPT/HCPCS: 76536

== ENCOUNTER 2025-02-09 08:16 | Outpatient (CLI) | payer MEDICARE, SELFPAY ==
[2025-02-09 18:56] LABS: Hematocrit 39.6 % (37.0-47.0); Hemoglobin 12.6 g/dL (12.0-15.0); Immature Granulocyte Percent A 0.2 % (0-0.5); Lymphocytes Absolute Auto 1.22 K/mm3 (0.9-3.2); Mean Corpuscular HGB Conc 31.8 g/dl (32-36); Mean Corpuscular Hemoglobin 31.8 pg (26-34); Mean Corpuscular Volume 100.0 fl (80-100); Nucleated Red Blood Cells Absolute Auto 0.000 K/mm3 (0.0-0.012); Nucleated Red Blood Cells Perc 0.0 % (0.0-0.2); Platelet Count Result 305 k/mm3 (150-375); Red Blood Count 3.96 M/mm3 (4.2-5.4); White Blood Count 5.4 K/mm3 (4.5-10.0)
[2025-02-09 20:40] LABS: Alanine Aminotransferase 26 U/L (6-35); Albumin Level 4.3 g/dL (3.5-5.1); Alkaline Phosphatase 55 U/L (38-126); Anion Gap 7 mmol/L (4-12); Aspartate Amino Transferase 41 U/L (14-36); Bilirubin,Total 0.5 mg/dL (0.2-1.3); Blood Urea Nitrogen 25 mg/dL (7-17); Calcium 9.3 mg/dL (8.4-10.2); Carbon Dioxide 24 mmol/L (22-30); Chloride 107 mmol/L (98-107); Cholesterol 250 mg/dL (0-200); Estimated Glomerular Filt Rate > 60; Glucose 54 mg/dL (65-110); HDL Direct 86 mg/dL; Potassium 4.0 mmol/L (3.4-5.0); Sodium 138 mmol/L (137-145); Total Protein 7.2 g/dL (6.3-8.2); Triglycerides 74 mg/dL (<150)
== END 2025-02-09 08:17 | disposition home or self-care (01) ==
LOC: ANHGOSHLAB 08:16
PROVIDERS: PCP Internal Medicine Endocrinology, Diabetes & Metabolism; Visit Provider Nurse Practitioner Family
DX: E78.5 Hyperlipidemia, unspecified (principal); I10 Essential (primary) hypertension
CPT/HCPCS: 36415; 80053; 80061; 85025